=== PATIENT | male | born 1930 | race Caucasian/White ===

== ENCOUNTER 2016-04-03 11:23 | Outpatient (CLI) | payer MEDICARE | END 2016-04-03 11:24 | disposition home or self-care (01) | DX: I10 Essential (primary) hypertension (principal); E11.9 Type 2 diabetes mellitus without complications ==

== ENCOUNTER 2016-05-30 19:37 | Inpatient (IN) | payer MEDICARE ==
[2016-05-30] MEDS ORDERED: FUROSEMIDE 40 MG/4 ML VIAL IVP STA (22:07)
[2016-05-30] MEDS ORDERED: FUROSEMIDE 40 MG/4 ML VIAL ONE (22:12)
[2016-05-30] MEDS ORDERED: FUROSEMIDE 20 MG/2 ML VIAL IVP STA (22:21)
[2016-05-30] MEDS ORDERED: FUROSEMIDE 20 MG/2 ML VIAL IVP ONE (22:22)
[2016-05-30] MEDS ORDERED: PROCHLORPERAZINE 10 MG/2 ML VIAL IVP PRN (23:43)
[2016-05-30] MEDS ORDERED: ACETAMINOPHEN 325 MG TABLET PO PRN (23:43)
[2016-05-30] MEDS ORDERED: SODIUM CHLORIDE FLUSH 0.9% 10 ML SYRINGE IVP PRN (23:43)
[2016-05-30] MEDS ORDERED: POLYETHYLENE GLYCOL 3350 17 GM PACKET PO PRN (23:55)
[2016-05-30] MEDS ORDERED: ZOLPIDEM 5 MG TABLET PO PRN (23:55)
[2016-05-31] MEDS: oxyCODONE 5 MG TABLET PO PRN ×3 (01:57→15:45)
[2016-05-31] MEDS: ATORVASTATIN 10 MG TABLET PO SCH ×2 (01:57→21:21)
[2016-05-31] MEDS: FUROSEMIDE 40 MG/4 ML VIAL IVP SCH ×2 (06:35→11:42)
[2016-05-31] MEDS: SODIUM CHLORIDE FLUSH 0.9% 10 ML SYRINGE IVP SCH ×3 (06:35→21:21)
[2016-05-31] MEDS ORDERED: INSULIN GLARGINE 300 UNIT/3 ML PEN SUBQ SCH (08:00)
[2016-05-31] MEDS: CEFEPIME 2 GM in SODIUM CHLORIDE 0.9% MINIBAG 100 ML IV SCH (09:00)
[2016-05-31] MEDS: INSULIN GLARGINE 300 UNIT/3 ML PEN SUBQ SCH (11:23)
[2016-05-31] MEDS: DOCUSATE SODIUM 100 MG CAPSULE PO SCH ×2 (11:24→21:20)
[2016-05-31] MEDS: SENNA 8.6 MG TABLET PO SCH ×2 (11:32→21:20)
[2016-05-31] MEDS: hydrALAZINE 25 MG TABLET PO SCH ×2 (11:32→21:21)
[2016-05-31] MEDS: PRAZOSIN 1 MG CAPSULE PO SCH ×2 (11:35→21:20)
[2016-05-31] MEDS: FOLIC ACID 1 MG TABLET PO SCH (11:37)
[2016-05-31] MEDS: TAMSULOSIN 0.4 MG CAPSULE PO SCH ×2 (11:38→21:21)
[2016-05-31] MEDS: POLYETHYLENE GLYCOL 3350 17 GM PACKET PO SCH (11:41)
[2016-05-31] MEDS: ENOXAPARIN 40 MG/0.4 ML SYRINGE SUBQ SCH (12:01)
[2016-05-31] MEDS ORDERED: GLUCAGON 1 MG/ML VIAL SUBQ PRN (16:16)
[2016-05-31] MEDS ORDERED: DEXTROSE GEL 37.5 GM TUBE PO PRN (16:16)
[2016-05-31] MEDS ORDERED: DEXTROSE 5% 1,000 ML IV PRN (16:16)
[2016-05-31] MEDS ORDERED: DEXTROSE 50% ABBOJECT 25 GM/50 ML SYRINGE IVP PRN (16:16)
[2016-05-31] MEDS: INSULIN ASPART 300 UNIT/3 ML PEN SUBQ SCH ×2 (17:28→21:42)
[2016-05-31] MEDS ORDERED: TAMSULOSIN 0.4 MG CAPSULE PO SCH (21:00)
[2016-06-01] MEDS: SODIUM CHLORIDE FLUSH 0.9% 10 ML SYRINGE IVP SCH ×2 (05:30→10:30)
[2016-06-01] MEDS: CEFEPIME 2 GM in SODIUM CHLORIDE 0.9% MINIBAG 100 ML IV SCH (08:27)
[2016-06-01] MEDS: DOCUSATE SODIUM 100 MG CAPSULE PO SCH (08:28)
[2016-06-01] MEDS: ENOXAPARIN 40 MG/0.4 ML SYRINGE SUBQ SCH (08:29)
[2016-06-01] MEDS: FUROSEMIDE 40 MG/4 ML VIAL IVP SCH (08:29)
[2016-06-01] MEDS: POLYETHYLENE GLYCOL 3350 17 GM PACKET PO SCH (08:30)
[2016-06-01] MEDS: PRAZOSIN 1 MG CAPSULE PO SCH (08:30)
[2016-06-01] MEDS: SENNA 8.6 MG TABLET PO SCH (08:31)
[2016-06-01] MEDS: TAMSULOSIN 0.4 MG CAPSULE PO SCH (08:31)
[2016-06-01] MEDS: INSULIN GLARGINE 300 UNIT/3 ML PEN SUBQ SCH (08:44)
[2016-06-01] MEDS: INSULIN ASPART 300 UNIT/3 ML PEN SUBQ SCH ×2 (08:44→11:58)
[2016-06-01] MEDS: hydrALAZINE 25 MG TABLET PO SCH (09:00)
[2016-06-01] MEDS: FOLIC ACID 1 MG TABLET PO SCH (09:00)
[2016-06-01] MEDS: oxyCODONE 5 MG TABLET PO PRN ×2 (09:47→15:36)
[2016-06-01] MEDS ORDERED: BISACODYL 10 MG SUPP PR ONE (11:37)
[2016-06-01] MEDS ORDERED: CEFUROXIME AXETIL 250 MG TABLET PO SCH (16:00)
== END 2016-06-01 16:09 | disposition home or self-care (01) | DRG 291 ==
DX: I11.0 Hypertensive heart disease with heart failure (principal); I50.9 Heart failure, unspecified; N28.9 Disorder of kidney and ureter, unspecified; I48.91 Unspecified atrial fibrillation; E11.9 Type 2 diabetes mellitus without complications; F03.90 Unspecified dementia, unspecified severity, without behavioral disturbance, psychotic disturbance, mood disturbance, and anxiety; I13.0 Hypertensive heart and chronic kidney disease with heart failure and stage 1 through stage 4 chronic kidney disease, or unspecified chronic kidney disease; J96.01 Acute respiratory failure with hypoxia; I50.23 Acute on chronic systolic (congestive) heart failure; J18.9 Pneumonia, unspecified organism; E11.22 Type 2 diabetes mellitus with diabetic chronic kidney disease; N18.3 Chronic kidney disease, stage 3 (moderate); R00.1 Bradycardia, unspecified; I71.2 Thoracic aortic aneurysm, without rupture; N40.0 Benign prostatic hyperplasia without lower urinary tract symptoms; M54.5 Low back pain; G89.29 Other chronic pain; K21.9 Gastro-esophageal reflux disease without esophagitis; K59.09 Other constipation; D50.9 Iron deficiency anemia, unspecified; I27.2 Other secondary pulmonary hypertension; Z79.891 Long term (current) use of opiate analgesic; Z79.4 Long term (current) use of insulin

== ENCOUNTER 2016-12-06 08:00 | Outpatient (CLI) | payer MEDICARE ==
[2016-12-06 18:25] LABS: CREATININE 1.7 mg/dL (0.6-1.2); POTASSIUM 3.9 mmol/L (3.5-5.0)
[2016-12-06 18:32] LABS: HEMOGLOBIN A1C 0.69 g/dL
== END 2016-12-06 08:01 | disposition home or self-care (01) ==
LOC: LAB.F 08:00
PROVIDERS: ATTEND Family Medicine
DX: I50.9 Heart failure, unspecified (principal); E11.9 Type 2 diabetes mellitus without complications; I10 Essential (primary) hypertension; N40.1 Benign prostatic hyperplasia with lower urinary tract symptoms
CPT/HCPCS: 36415; 80048; 83036

== ENCOUNTER 2017-01-04 13:05 | Outpatient (CLI) | payer MEDICARE ==
[2017-01-04 18:13] LABS: BASOPHILS % (AUTO) 0.6 %; EOSINOPHILS # (AUTO) 0.8 10^3/uL (0.0-0.7); EOSINOPHILS % (AUTO) 10.1 %; HCT - HEMATOCRIT 35.4 % (42.0-52.0); HGB - HEMOGLOBIN 11.6 g/dL (14.0-18.0); LYMPHOCYTES # (AUTO) 0.6 10^3/uL (1.5-3.5); LYMPHOCYTES % (AUTO) 7.3 %; MEAN CORPUSCULAR HEMOGLOBIN 31.3 pg (27.0-31.0); MEAN CORPUSCULAR HGB CONC 32.7 g/dL (32.0-36.0); MEAN CORPUSCULAR VOLUME 95.6 fL (80.0-94.0); MEAN PLATELET VOLUME 9.2 fL (7.4-11.4); MONOCYTES # (AUTO) 0.6 10^3/uL (0.0-1.0); MONOCYTES % (AUTO) 7.8 %; NEUTROPHILS # (AUTO) 5.6 10^3/uL (1.5-6.6); NEUTROPHILS % (AUTO) 74.2 %; NUCLEATED RED BLOOD CELLS AUTO 0.1 /100WBC; RED CELL DISTRIBUTION WIDTH 16.1 % (12.0-15.0); UNCORRECTED WHITE BLOOD COUNT 7.5 x10^3/uL; WHITE BLOOD COUNT 7.5 x10^3/uL (4.8-10.8)
[2017-01-04 18:37] LABS: ALBUMIN/GLOBULIN RATIO 0.8 (1.0-2.2); BILIRUBIN,TOTAL 0.5 mg/dL (0.2-1.0); CALCIUM 9.2 mg/dL (8.5-10.3); CREATININE 1.7 mg/dL (0.6-1.2); TOTAL PROTEIN 7.7 g/dL (6.7-8.2)
[2017-01-04 18:52] LABS: FERRITIN 116.6 ng/mL (23.9-336.2)
[2017-01-04 19:43] LABS: PLATELET ESTIMATE, MANUAL NORMAL (130-450,000) (NORMAL); PLATELET MORPHOLOGY NORMAL APPEARANCE (NORMAL); WBC MORPHOLOGY (MULTIPLE) NORMAL APPEARANCE (NORMAL)
== END 2017-01-04 13:06 | disposition home or self-care (01) ==
LOC: LAB.F 13:05
PROVIDERS: ATTEND Family Medicine
DX: R09.02 Hypoxemia (principal); N18.9 Chronic kidney disease, unspecified; I50.9 Heart failure, unspecified; E11.9 Type 2 diabetes mellitus without complications; I48.91 Unspecified atrial fibrillation
CPT/HCPCS: 36415; 80053; 82607; 82728; 83540; 83880; 84466; 85025

== ENCOUNTER 2017-02-13 15:54 | Outpatient (CLI) | payer MEDICARE ==
--- NOTE | 2017-02-13 17:16 | XRAY Preliminary Report ---
Exam: XR CHEST 2 VIEW PA/LAT IMPRESSION: 1. There is cardiomegaly. 2. There is peribronchial and patchy opacity within the lung bases. Perhaps mild interval increase as compared to the previous examination. Differential considerations include infectious pneumonia, orga nizing pneumonia, and/or mild lung edema. 3. There is no pneumothorax. [facility] The call report notification system was initiated by Dr. Loida Joyner at 17:00 hrs on 02/13/17. The above findings were discussed with Sindy MCKEON by Dr. Loida Joyner at 17:14 hrs on 04/15/16. SITE ID: [id number]
--- NOTE | 2017-02-13 17:19 | XRAY Report ---
EXAM: CHEST RADIOGRAPHY EXAM DATE: 02/13/2017 04:14 PM. CLINICAL HISTORY: Dyspnea COMPARISON: 05/31/2016. TECHNIQUE: 2 views. FINDINGS: Lungs/Pleura: Lung volumes are within normal limits. There is bilateral lower lobe peribronchial cons olidation. This is not significantly changed as compared to the previous examination. No evidence of pleural effusion. No pneumothorax. Mediastinum: There is cardiomegaly. Other: None. IMPRESSION: 1. There is cardiomegaly. 2. There is peribronchial and patchy opacity within the lung bases. Perhaps mild interval increase as compared to the previous examination. Differential considerations include infectious pneumonia, orga nizing pneumonia, and/or mild lung edema. 3. There is no pneumothorax. [facility] The call report notification system was initiated by Dr. Loida Joyner at 17:00 hrs on 02/13/17. The above findings were discussed with Sindy MCKEON by Dr. Loida Joyner at 17:14 hrs on 04/15/16. Referring Provider Line: [phone] SITE ID: [id number]
== END 2017-02-13 15:55 | disposition home or self-care (01) ==
LOC: DI.S 15:54
PROVIDERS: ATTEND Nurse Practitioner Family
DX: R91.8 Other nonspecific abnormal finding of lung field (principal); I51.7 Cardiomegaly
CPT/HCPCS: 71020

== ENCOUNTER 2017-02-15 09:50 | Outpatient (CLI) | payer MEDICARE ==
--- NOTE | 2017-02-16 17:13 | CONSULTATION NOTE ---
DATE OF CONSULTATION: 02/16/2017 00:00:00 REQUESTING PROVIDER: NAVA Kerns. HISTORY OF PRESENT ILLNESS: The patient is an 86-year-old male, admitted yesterday for guevara tment of a presumed pneumonia. On his admission, however, he also complained of right knee pain and s welling. Speaking with him today, he noted atraumatic origin of right knee swelling and pain for the past week to 10 days. No known history of trauma. No history of gout or other problems to this knee. He has had a history of surgery to his opposite left knee for unknown reasons. Currently, he is only complaining of his right knee with regard to musculoskeletal complaints. No history of fevers or chil ls. PHYSICAL EXAMINATION: Right knee today showed a 1 to 2+ knee effusion present. Mild warmth and no sig nificant erythema around the knee appreciated. No focal tenderness noted about the joint. He has gene ralized tenderness, however. Ligaments appear to be stable. Knee range of motion is somewhat limited from about 15 degrees, flexed to about 45 to 50 degrees of flexion. This was without pain. Neurovascu lar is intact distally. After Betadine skin preparation, we introduced an 18-gauge needle from a lateral parapatellar approac h into the right knee. We were able to aspirate about 30 mL of blood-tinged serous fluid from his kne e. The patient tolerated the aspiration well. X-rays of the knee showed no acute fractures or dislocations noted. ASSESSMENT: Right knee effusion - unclear etiology. PLAN: The patient will apply heat for comfort to his knee. Activities as tolerated with regard to his knee. He will continue on his antibiotics for treatment of his pneumonia as well. We sent the knee a spiration fluid to the laboratory for a stat Gram stain, aerobic and anaerobic cultures and sensitivi ties, crystal analysis, and a cell count. JOB #: [id number] EXT JOB #:[id number]
== END 2017-02-15 09:51 | disposition critical access hospital (66) ==
LOC: EMS 09:50
PROVIDERS: ATTEND Surgery
DX: R53.81 Other malaise (principal)
CPT/HCPCS: A0425; A0429

== ENCOUNTER 2017-02-15 10:24 | Inpatient (IN) | payer MEDICARE ==
--- NOTE | 2017-02-15 11:01 | ED Physician Documentation ---
History of Present Illness - Stated complaint Stated Complaint: WEAKNESS,PNA - Chief complaint Chief Complaint: Resp - History obtained from History obtained from: Patient, Family - History of Present Illness Timing: How many days ago (2 days ago the pt was diagnosed with PNA and is currently on a zpac for community acquired PNA. pt has home o2 that he uses occasionally. Family states that he has had to use the home o2 since the diagnosis and for the past couple days has been growning more weak. No chest pain. Pt also with hx of CHF) Review of Systems Ten Systems: 10 systems reviewed and negative Constitutional: denies: Fever, Chills Eyes: denies: Loss of vision, Photophobia Nose: denies: Congestion, Sinus pressure / pain Throat: denies: Sore throat, Swollen tonsils Cardiac: denies: Chest pain / pressure Respiratory: reports: Dyspnea, Cough, Wheezing GI: denies: Abdominal Pain, Nausea, Vomiting, Constipation, Diarrhea : denies: Dysuria, Frequency Skin: denies: Rash, Lesions, Laceration (s) Musculoskeletal: reports: Other (Left wrist pain and right knee pain) Neurologic: reports: Generalized weakness. denies: Focal weakness, Altered mental status, Headache, LOC PD PAST MEDICAL HISTORY - Past Medical History Past Medical History: Yes Cardiovascular: Congestive heart failure, Hypertension, Atrial fibrillation Respiratory: Pneumonia Neuro: Dementia Endocrine/Autoimmune: Type 2 diabetes GI: GERD, Other : Incontinence HEENT: None Psych: None Musculoskeletal: Osteoarthritis, Chronic back pain Derm: None - Past Surgical History Past Surgical History: Yes Ortho: Knee replacement HEENT: Tonsil/Adenoidectomy - Present Medications Home Medications: Ambulatory Orders Medication Instructions Recorded Confirmed Carvedilol 25 mg PO BID 01/23/13 02/15/17 Ferrous Gluconate 324 mg PO DAILY 01/23/13 02/15/17 Folic Acid 1 mg PO DAILY 01/23/13 02/15/17 Omeprazole [PriLOSEC] 20 mg PO BID 01/23/13 02/15/17 Simvastatin 20 mg PO HS 01/23/13 02/15/17 hydrALAZINE [Apresoline] 50 mg PO BID 01/23/13 02/15/17 oxyCODONE [Roxicodone] 15 mg PO TID PRN 01/23/13 02/15/17 Docusate Sodium 100Mg Capsule 400 mg PO BID 03/20/13 02/15/17 [Colace 100Mg Capsule] Polyethylene Glycol 3350 [Miralax] 8.5 - 17 gm PO DAILY PRN 03/20/13 02/15/17 Prazosin [Minipress] 5 mg PO BID PRN 03/20/13 02/15/17 Senna [Senokot] 17.2 mg PO BID 03/20/13 02/15/17 Insulin Glargine,Hum.rec.anlog 10 units SUBQ QDBREAKFAST 05/30/13 02/15/17 [Lantus] Tamsulosin [Flomax] 0.4 mg PO BID 11/29/14 02/15/17 Furosemide 80 mg PO DAILY 11/30/14 02/15/17 Amitriptyline [Elavil] 1 tab PO DAILY 02/15/17 02/15/17 Azithromycin [Zithromax] 1 gm PO DAILY 02/15/17 02/15/17 - Allergies Allergies/Adverse Reactions: Allergies Allergy/AdvReac Type Severity Reaction Status Date / Time Penicillins Allergy Mild Rash Verified 02/15/17 10:42 - Social History Does the pt smoke?: No Smoking Status: Never smoker Does the pt drink ETOH?: Yes Does the pt have substance abuse?: No - Immunizations Immunizations are current?: Yes - POLST Patient has POLST: Yes POLST Status: Full Code PD ED PE NORMAL - Vitals Vital signs reviewed: Yes - General General: Alert and oriented X 3 - HEENT HEENT: Atraumatic, Moist mucous membranes - Neck Neck: Supple, no meningeal sign - Cardiac Cardiac: No: RRR (Irregular) - Respiratory Respiratory: No respiratory distress (on 2L of NC). No: Clear bilaterally ( Course breath sounds bilateral ) - Abdomen Abdomen: Soft, Non tender, Non distended - Derm Derm: Normal color, Warm and dry, No rash - Extremities Extremities: Other (+ TTP right wirst and right knee with sweling of the wirst and knee and limited ROM ) - Neuro Neuro: Alert and oriented X 3, Normal speech Eye Opening: Spontaneous Motor: Obeys Commands Verbal: Oriented GCS Score: 15 - Psych Psych: Normal mood, Normal affect Results - Vitals Vitals: Vital Signs - 24 hr 02/15/17 02/15/17 02/15/17 10:26 10:30 11:57 Temperature 37 C 37.2 C Heart Rate 72 69 Respiratory 22 20 Rate Blood Pressure 131/70 H 130/64 O2 Saturation 84 L 96 99 Oxygen O2 Source [Without Activity] Nasal cannula O2 Source [With Activity] Nasal cannula O2 Source Room air Oxygen Flow Rate 2 - EKG (time done) 1034 Rate: Rate (enter#) Rhythm: Atrial fibrillation Solomon: Normal QRS: Normal Ischemia: Non specific changes - Labs Labs: Laboratory Tests 02/15/17 02/15/17 02/15/17 11:26 11:26 11:26 WBC 7.9 RBC 3.48 L Hgb 10.8 L Hct 32.7 L MCV 93.9 MCH 31.0 MCHC 33.0 RDW 15.0 Plt Count 109 L MPV 8.1 Neut # 6.2 Lymph # 0.4 L [place] # 0.7 Eos # 0.6 Baso # 0.0 Absolute Nucleated RBC 0.00 Nucleated RBC % 0.0 PT 13.8 H INR 1.2 APTT 21.6 L Sodium 140 Potassium 3.6 Chloride 100 L Carbon Dioxide 27 Anion Gap 13.0 BUN 86 H* Creatinine 1.9 H Estimated GFR (MDRD) 34 L Glucose 105 H Lactic Acid Calcium 9.0 Total Bilirubin 0.4 AST 12 ALT < 10 L Alkaline Phosphatase 55 Total Creatine Kinase 61 B-Natriuretic Peptide Total Protein 7.2 Albumin 3.0 L Globulin 4.2 Albumin/Globulin Ratio 0.7 L Lipase 16 L 02/15/17 02/15/17 11:26 11:26 WBC RBC Hgb Hct MCV MCH MCHC RDW Plt Count MPV Neut # Lymph # [place] # Eos # Baso # Absolute Nucleated RBC Nucleated RBC % PT INR APTT Sodium Potassium Chloride Carbon Dioxide Anion Gap BUN Creatinine Estimated GFR (MDRD) Glucose Lactic Acid 0.7 Calcium Total Bilirubin AST ALT Alkaline Phosphatase Total Creatine Kinase B-Natriuretic Peptide 346 H Total Protein Albumin Globulin Albumin/Globulin Ratio Lipase - Rads (name of study) CXR Radiology: Final report received, EMP read contemporaneously (Possible mild CHF bibasilar pulm opacities similar to prior ) left wrist Radiology: Prelim report reviewed, EMP read contemporaneously PD MEDICAL DECISION MAKING - ED course Complexity details: d/w patient, d/w family, d/w events solutions consultant ED course: Pt with a known diagnosis of PNA and is on oral zpac at home. has had 2 doses. no risks of HCAP. has been at home and for the past 2 days has become more weak. Is on 2L of O2 that he has at home but only uses occasionally. Right wrist pain that is new w/o signs of fracture. family states that he was laying on that wrist wrong the other night. Hs right knee pain and swelling is not new but is making that leg more weak. BNP only slightly elevated. has known A- fib and is not anticoagulation because of his fall risk. Discussed with family and will admit for his PNA and weakness. Departure - Departure Disposition: [facility] DC/Xfer Clinical Impression: Pneumonia Qualifiers: Pneumonia type: due to unspecified organism Laterality: unspecified laterality Lung location: unspecified part of lung Qualified Code(s): J18.9 - Pneumonia, unspecified organism Atrial fibrillation Qualifiers: Atrial fibrillation type: persistent Qualified Code(s): I48.1 - Persistent atrial fibrillation CHF (congestive heart failure) Qualifiers: Congestive heart failure type: unspecified congestive heart failure type Congestive heart failure chronicity: chronic Qualified Code(s): I50.9 - Heart failure, unspecified Condition: Stable
[2017-02-15 11:39] LABS: BASOPHILS % (AUTO) 0.3 %; EOSINOPHILS # (AUTO) 0.6 10^3/uL (0.0-0.7); EOSINOPHILS % (AUTO) 7.1 %; HCT - HEMATOCRIT 32.7 % (42.0-52.0); HGB - HEMOGLOBIN 10.8 g/dL (14.0-18.0); LYMPHOCYTES # (AUTO) 0.4 10^3/uL (1.5-3.5); LYMPHOCYTES % (AUTO) 4.6 %; MEAN CORPUSCULAR VOLUME 93.9 fL (80.0-94.0); MEAN PLATELET VOLUME 8.1 fL (7.4-11.4); MONOCYTES # (AUTO) 0.7 10^3/uL (0.0-1.0); NEUTROPHILS # (AUTO) 6.2 10^3/uL (1.5-6.6); RED BLOOD COUNT 3.48 10^6/uL (4.70-6.10); UNCORRECTED WHITE BLOOD COUNT 7.9 x10^3/uL; WHITE BLOOD COUNT 7.9 x10^3/uL (4.8-10.8)
[2017-02-15 11:50] LABS: INR 1.2 (0.8-1.2); PT - PROTHROMBIN TIME 13.8 secs (9.9-12.6)
[2017-02-15 12:02] LABS: PARTIAL THROMBOPLASTIN TIME 21.6 secs (24.9-33.3)
[2017-02-15 12:09] LABS: ALBUMIN/GLOBULIN RATIO 0.7 (1.0-2.2); BILIRUBIN,TOTAL 0.4 mg/dL (0.2-1.0); CARBON DIOXIDE - CO2 27 mmol/L (21-32); CHLORIDE 100 mmol/L (101-111); CREATININE 1.9 mg/dL (0.6-1.2); GFR - MDRD 34 (>89); GLUCOSE 105 mg/dL (70-100); LIPASE 16 U/L (22-51); POTASSIUM 3.6 mmol/L (3.5-5.0); SODIUM 140 mmol/L (135-145); TOTAL PROTEIN 7.2 g/dL (6.7-8.2)
[2017-02-15 12:16] LABS: BUN - BLOOD UREA NITROGEN 86 mg/dL (6-20)
--- NOTE | 2017-02-15 12:35 | XRAY Preliminary Report ---
Exam: XR CHEST 1 VIEW IMPRESSION: Possible mild CHF. Bibasilar pulmonary opacities are similar to prior. [facility] SITE ID: [id number]
--- NOTE | 2017-02-15 12:37 | XRAY Preliminary Report ---
Exam: XR WRIST 3 VIEW LT IMPRESSION: No acute osseous abnormality. [facility] SITE ID: [id number]
--- NOTE | 2017-02-15 12:38 | XRAY Report ---
EXAM: CHEST RADIOGRAPHY EXAM DATE: 02/15/2017 12:18 PM. CLINICAL HISTORY: Shortness of breath . COMPARISON: 02/13/2017. TECHNIQUE: 1 view. FINDINGS: Lungs/Pleura: Bibasilar patchy and reticular opacities are similar to prior allowing for differences in technique. No new pulmonary opacity. No pneumothorax or large pleural effusion. Possible mild pulm onary vascular congestion. Mediastinum: Moderate enlargement of the cardiac silhouette is similar to prior. Other: None. IMPRESSION: Possible mild CHF. Bibasilar pulmonary opacities are similar to prior. [facility] Referring Provider Line: [phone] SITE ID: [id number]
--- NOTE | 2017-02-15 12:39 | XRAY Report ---
EXAM: LEFT WRIST RADIOGRAPHY EXAM DATE: 02/15/2017 12:19 PM. CLINICAL HISTORY: Swelling and pain . COMPARISON: None. TECHNIQUE: 3 views. FINDINGS: Bones: No acute fracture. Joints: Mild degenerative change. No dislocation. Soft Tissues: Vascular calcifications. Mild diffuse soft tissue swelling. IMPRESSION: No acute osseous abnormality. [facility] Referring Provider Line: [phone] SITE ID: [id number]
[2017-02-15] MEDS ORDERED: ONDANSETRON 4 MG/2 ML VIAL IVP PRN (13:30)
[2017-02-15] MEDS ORDERED: PRAZOSIN 1 MG CAPSULE PO PRN (14:31)
[2017-02-15] MEDS ORDERED: MORPHINE ER 15 MG TABLET PO PRN (14:31)
[2017-02-15] MEDS: CEFEPIME 1 GM in SODIUM CHLORIDE 0.9% MINIBAG 100 ML IV SCH ×2 (14:45→21:42)
[2017-02-15] MEDS: oxyCODONE 5 MG TABLET PO PRN (15:09)
[2017-02-15] MEDS: ACETAMINOPHEN 325 MG TABLET PO PRN (15:13)
[2017-02-15 15:38] LABS: BILIRUBIN,URINE NEGATIVE (NEGATIVE)
--- NOTE | 2017-02-15 15:55 | HISTORY & PHYSICAL EXAMINATION ---
Chief Complaint - Chief Complaint Chief Complaint: weakness and cough History of Present Illness - Admitted From Admitted From:: ER - History Obtained From History obtained from: pt and his family - History of Present Illness HPI Comment/Other: This is a 86-year-old male with a past medical history significance for CHF, CKD, HTN, Afib without anticoagulation, pneumonia, Dementia, DM2, GERD , incontinence, osteoarthritis, chronic pain, who present ER for evaluation of weakness, cough, pneumonia. Pt's son report pt had a choke with extensive cough and aspiration before he visited his PCP. Pt report three days he went to see his PCP, CXR was done at PCP office. He was found to have pneumonia. Pt was prescribed Azithyomycin. But pt did not feel better. The saturation of O2 was down to 80% per pt's daughter in law state. Pt has O2 taken in the home. Pt report he has lots of cough with yellow sputum. Pt also developed more weakness. he usually can walk with walker but recently he can not sit at the bed side, and sleep the whole day. pt denies fever, chill, night sweating. No chest pain, obvious shortness of breathing, headache, abdominal pain, nausea, vomiting, diarrhea, GI bleeding, dysuria, hemauria, vision changing. lab reveals chronic CKD, lactic acid 0.7, BNP 346. CXR reveals no acute significant finding. History - Past Medical History Cardiovascular: reports: Congestive heart failure, Hypertension, Atrial fibrillation Respiratory: reports: Pneumonia Neuro: reports: Dementia Endocrine/Autoimmune: reports: Type 2 diabetes GI: reports: GERD, Other : reports: Incontinence HEENT: reports: None Psych: reports: None Musculoskeletal: reports: Osteoarthritis, Chronic back pain Derm: reports: None MRSA Hx?: No - Past Surgical History Ortho: reports: Knee replacement HEENT: reports: Tonsil/Adenoidectomy - POLST Patient has POLST: Yes POLST Status: Full Code Meds/Allgy - Home Medications Home Medications: Ambulatory Orders Medication Instructions Recorded Confirmed Carvedilol 25 mg PO BID 01/23/13 02/15/17 Ferrous Gluconate 324 mg PO DAILY 01/23/13 02/15/17 Folic Acid 1 mg PO DAILY 01/23/13 02/15/17 Omeprazole [PriLOSEC] 20 mg PO BID 01/23/13 02/15/17 Simvastatin 20 mg PO HS 01/23/13 02/15/17 hydrALAZINE [Apresoline] 50 mg PO BID 01/23/13 02/15/17 oxyCODONE [Roxicodone] 15 mg PO TID PRN 01/23/13 02/15/17 Docusate Sodium 100Mg Capsule 100 mg PO BID 03/20/13 02/15/17 [Colace 100Mg Capsule] Polyethylene Glycol 3350 [Miralax] 8.5 - 17 gm PO DAILY PRN 03/20/13 02/15/17 Prazosin [Minipress] 5 mg PO BID 03/20/13 02/15/17 Senna [Senokot] 17.2 mg PO BID 03/20/13 02/15/17 Insulin Glargine,Hum.rec.anlog 10 units SUBQ QDBREAKFAST 05/30/13 02/15/17 [Lantus] Tamsulosin [Flomax] 0.4 mg PO BID 11/29/14 02/15/17 Furosemide 80 mg PO DAILY 11/30/14 02/15/17 Amitriptyline [Elavil] 10 mg PO 2100 02/15/17 02/15/17 Azithromycin [Zithromax Tri-Jan] 500 mg PO DAILY 02/15/17 02/15/17 Morphine Sulfate [Ms Contin] 15 mg PO BID 02/15/17 02/15/17 Zolpidem [Ambien] 5 mg PO HS PRN 02/15/17 02/15/17 - Allergies Allergies/Adverse Reactions: Allergies Allergy/AdvReac Type Severity Reaction Status Date / Time Penicillins Allergy Mild Rash Verified 02/15/17 10:42 Review of Systems - Constitutional Constitutional: reports: Fatigue, Weakness. denies: Fever, Chills, Malaise, Poor appetite, Diaphoresis, Night sweats - Eyes Eyes: denies: Pain, Irritation, Amaurosis, Blurred vision, Spots in vision, Field loss, Vision loss, Dipolpia - Ears, Nose & Throat Ears, Nose & Throat: denies: Ear pain, Hearing loss, Hearing aids, Tinnitus, Vertigo, Nasal pain, Nasal discharge, Nosebleeds, Nasal congestion, Postnasal drainage, Sore throat, Mouth lesions, Bleeding gums - Cardiovascular Cariovascular: denies: Irregular heart rate, Palpitations, Chest pain, Edema, Lightheadedness, Syncope, Exertional dyspnea, Decr. exercise tolerance - Respiratory Respiratory: reports: Cough, Sputum production. denies: Wheezing, Snoring, Hemoptysis, Orthopnea, SOB at rest - Gastrointestinal Gastrointestinal: denies: Abdominal pain, Abdominal distention, Constipation, Diarrhea, Change in bowel habits, Rectal bleeding, Black stools, Bloody stools, Nausea, Vomiting, Tee blood emesis, Coffee grounds emesis, Reflux/heartburn - Genitourinary Genitourinary: reports: Incontinence. denies: Dysuria, Frequency, Urgency, Hematuria, Flank pain, Nocturia, Urethral discharge - Musculoskeletal Musculoskeletal: reports: Back pain, Joint pain. denies: Muscle pain, Muscle aches, Stiffness, Limited range of motion, Muscle weakness, Gout - Integumentary Integumentary: denies: Rash, Pruritis, Lesions, Dryness, Lumps, Acne, Pigment changes - Neurological Neurological: reports: General weakness. denies: Focal weakness, Headache, Dizziness, Numbness, Memory problems, Pre-existing deficit, Abnormal gait, Seizures, Incoordination, Slurred speech - Psychiatric Psychiatric: denies: Depression, Anxiety, Suicidal, Delusions, Hallucinations, Homicidal - Endocrine Endocrine: denies: Polyuria, Polydypsia, Polyphagia, Intolerance to cold, Intolerance to heat - Hematologic/Lymphatic Hematologic/Lymphatic: denies: Anemia, Bruising, Petechiae, Blood clots, Lymphadenopathy, Bleeding tendencies, Recurrent infections Exam - Vital Signs Reviewed Vital Signs: Yes Vital Signs: Vital Signs x48h Temp Pulse Pulse Resp BP BP Pulse Ox 02/15/17 15:39 36.6 C 68 22 146/94 H 96 02/15/17 14:33 36.8 C 78 20 144/58 H 92 02/15/17 14:11 37.1 C 74 22 145/66 H 98 - Physical Exam General Appearance: positive: No acute distress, Alert. negative: Lethargic Eyes Bilateral: positive: Normal inspection, PERRL, No lid inflammation, Conjunctivae nml ENT: positive: ENT inspection nml, Pharynx nml, No signs of dehydration. negative: Purulent nasal drainage, Pharyngeal erythema, Oral lesions Neck: positive: Nml inspection, Thyroid nml, No JVD, Trachea midline. negative : Thyromegaly, Lymphadenopathy (R), Lymphadenopathy (L), Stiff neck, Carotid bruit, Swelling/bruising, Tracheal deviation Respiratory: positive: Chest non-tender, No respiratory distress, Rhonchi. negative: Wheezes, Rales Cardiovascular: positive: Regular rate & rhythm, No murmur, No gallop. negative : Irregularly irregular, Extrasystoles, Tachycardia, Bradycardia, Systolic murmur, Diastolic murmur Peripheral Pulses: positive: 2+ Abdomen: positive: Non-tender, No organomegaly, Nml bowel sounds, No distention. negative: Tenderness, Guarding, Rebound Back: positive: Nml inspection. negative: CVA tenderness (R), CVA tenderness (L ) Skin: positive: Color nml, No rash, Warm, Dry. negative: Cyanosis, Diaphoresis , Pallor Extremities: positive: Non-tender, Full ROM, Nml appearance. negative: Calf tenderness, Joint swelling, Balwinder's sign/cords Neurologic/Psychiatric: positive: Oriented x3, Sensation nml, Mood/affect nml, Weakness. negative: Sensory loss, Facial droop, Slurred/abnml speech, Depressed mood/affect Conclusion/Plan - Problem List (1) Aspiration pneumonia Conclusion/Plan: pt's son report he had a choke and extensive cough and aspiration. Then he was diagnosis of pneumonia but no better after treated with PO antibiotics Cefepim blood and sputum culture, will follow up (2) Atrial fibrillation Conclusion/Plan: pt's daughter in law report pt has been Afib without anticoagulation due to risk of fall than the benefit. pt's HR is good control continue home meds for HR control tele, vital monitor Qualifiers: Atrial fibrillation type: persistent Qualified Code(s): I48.1 - Persistent atrial fibrillation (3) Congestive heart failure Conclusion/Plan: stable, BNP at pt's baseline, CXR does reveal effusion continue Lasix as home meds daily Lab, vital monitor Qualifiers: Congestive heart failure type: unspecified congestive heart failure type Congestive heart failure chronicity: chronic Qualified Code(s): I50.9 - Heart failure, unspecified (4) DM2 (diabetes mellitus, type 2) Conclusion/Plan: Glucose is well controlled today, resume of home Lantus Slide scale, ACHS, hypoglycemia check A1C (5) HTN (hypertension) Conclusion/Plan: stable, resume of home BP meds vital, tele monitor (6) Renal insufficiency Conclusion/Plan: stable, chronic condition hydration and avoid nephrotoxic agent daily lab, vital monitor (7) Osteoarthritis Conclusion/Plan: chronic condition, pain control, resume home meds (8) Chronic pain Conclusion/Plan: pain control, resume home pain control regime. (9) DVT prophylaxis Conclusion/Plan: SCD and Heparin (10) Full code status Conclusion/Plan: pt request full code status - Lab Results Fish Bones: 02/16/17 04:57 02/16/17 04:57 Issues/Core Measures - Anticipated LOS Anticipated Stay Length: 2 or more midnights (two or more midnights expected)
[2017-02-15 16:00] LABS: HEMOGLOBIN A1C 0.63 g/dL
[2017-02-15 16:03] LABS: UA CHARGE (STRIP ONLY) YES; UR CULTURE IF IND NOT INDICATED
[2017-02-15] MEDS: SODIUM CHLORIDE FLUSH 0.9% 10 ML SYRINGE IVP SCH ×2 (17:56→21:42)
[2017-02-15] MEDS: INSULIN ASPART 300 UNIT/3 ML PEN SUBQ SCH ×2 (17:57→21:39)
[2017-02-15] MEDS: HEPARIN 5,000 UNIT/ML VIAL SUBQ SCH (21:37)
[2017-02-15] MEDS: DOCUSATE SODIUM 100 MG CAPSULE PO SCH (21:39)
[2017-02-15] MEDS: MORPHINE ER 15 MG TABLET PO SCH (21:39)
[2017-02-15] MEDS: SENNA 8.6 MG TABLET PO SCH (21:40)
[2017-02-15] MEDS: PANTOPRAZOLE 40 MG TABLET PO SCH (21:40)
[2017-02-15] MEDS: ATORVASTATIN 10 MG TABLET PO SCH (21:41)
[2017-02-15] MEDS: CARVEDILOL 12.5 MG TABLET PO SCH (21:41)
[2017-02-15] MEDS: hydrALAZINE 25 MG TABLET PO SCH (21:41)
[2017-02-15] MEDS: AMITRIPTYLINE 10 MG TABLET PO SCH (21:41)
[2017-02-15] MEDS: TAMSULOSIN 0.4 MG CAPSULE PO SCH (21:44)
[2017-02-16 05:07] LABS: BASOPHILS % (AUTO) 0.4 %; EOSINOPHILS # (AUTO) 0.3 10^3/uL (0.0-0.7); EOSINOPHILS % (AUTO) 5.8 %; HCT - HEMATOCRIT 30.3 % (42.0-52.0); HGB - HEMOGLOBIN 9.7 g/dL (14.0-18.0); LYMPHOCYTES # (AUTO) 0.4 10^3/uL (1.5-3.5); LYMPHOCYTES % (AUTO) 7.3 %; MEAN CORPUSCULAR HEMOGLOBIN 30.4 pg (27.0-31.0); MEAN CORPUSCULAR VOLUME 95.2 fL (80.0-94.0); MONOCYTES # (AUTO) 0.6 10^3/uL (0.0-1.0); MONOCYTES % (AUTO) 11.1 %; NEUTROPHILS # (AUTO) 4.1 10^3/uL (1.5-6.6); NEUTROPHILS % (AUTO) 75.4 %; RED BLOOD COUNT 3.18 10^6/uL (4.70-6.10); RED CELL DISTRIBUTION WIDTH 14.9 % (12.0-15.0); UNCORRECTED WHITE BLOOD COUNT 5.4 x10^3/uL; WHITE BLOOD COUNT 5.4 x10^3/uL (4.8-10.8)
[2017-02-16 05:22] LABS: ALBUMIN/GLOBULIN RATIO 0.7 (1.0-2.2); BILIRUBIN,TOTAL 0.5 mg/dL (0.2-1.0); CALCIUM 8.5 mg/dL (8.5-10.3); CARBON DIOXIDE - CO2 29 mmol/L (21-32); CHLORIDE 104 mmol/L (101-111); CREATININE 1.8 mg/dL (0.6-1.2); GFR - MDRD 36 (>89); GLUCOSE 144 mg/dL (70-100); MAGNESIUM 2.2 mg/dL (1.7-2.8); POTASSIUM 3.9 mmol/L (3.5-5.0); SODIUM 139 mmol/L (135-145); TOTAL PROTEIN 6.1 g/dL (6.7-8.2)
[2017-02-16 05:24] LABS: BUN - BLOOD UREA NITROGEN 81 mg/dL (6-20)
[2017-02-16] MEDS: CEFEPIME 1 GM in SODIUM CHLORIDE 0.9% MINIBAG 100 ML IV SCH ×3 (06:28→22:07)
[2017-02-16] MEDS: SODIUM CHLORIDE FLUSH 0.9% 10 ML SYRINGE IVP PRN (06:28)
[2017-02-16] MEDS: SODIUM CHLORIDE FLUSH 0.9% 10 ML SYRINGE IVP SCH ×3 (06:28→22:08)
[2017-02-16] MEDS: oxyCODONE 5 MG TABLET PO PRN ×2 (06:40→16:19)
[2017-02-16] MEDS: POLYETHYLENE GLYCOL 3350 17 GM PACKET PO SCH (08:16)
[2017-02-16] MEDS: SENNA 8.6 MG TABLET PO SCH ×2 (08:17→20:54)
[2017-02-16] MEDS: FERROUS GLUCONATE 324 MG TABLET PO SCH (08:18)
[2017-02-16] MEDS: DOCUSATE SODIUM 100 MG CAPSULE PO SCH ×2 (08:18→20:55)
[2017-02-16] MEDS: MORPHINE ER 15 MG TABLET PO SCH ×2 (08:18→20:55)
[2017-02-16] MEDS: CARVEDILOL 12.5 MG TABLET PO SCH ×2 (08:19→21:08)
[2017-02-16] MEDS: FUROSEMIDE 40 MG TABLET PO SCH (08:20)
[2017-02-16] MEDS: FOLIC ACID 1 MG TABLET PO SCH (08:21)
[2017-02-16] MEDS: PANTOPRAZOLE 40 MG TABLET PO SCH ×2 (08:21→20:54)
[2017-02-16] MEDS: TAMSULOSIN 0.4 MG CAPSULE PO SCH ×2 (08:21→21:14)
[2017-02-16] MEDS: HEPARIN 5,000 UNIT/ML VIAL SUBQ SCH ×2 (08:23→21:13)
[2017-02-16] MEDS: hydrALAZINE 25 MG TABLET PO SCH ×2 (08:23→20:55)
[2017-02-16] MEDS: INSULIN GLARGINE 300 UNIT/3 ML PEN SUBQ SCH (08:24)
[2017-02-16] MEDS: INSULIN ASPART 300 UNIT/3 ML PEN SUBQ SCH ×4 (08:29→21:13)
[2017-02-16] MEDS ORDERED: FAMOTIDINE 20 MG TABLET PO SCH (09:00)
--- NOTE | 2017-02-16 12:27 | XRAY Preliminary Report ---
Exam: XR KNEE 2 VIEW RT IMPRESSION: 1. Moderate right knee degenerative changes. 2. Moderate joint effusion. 3. No fracture. [facility] SITE ID: [id number]
--- NOTE | 2017-02-16 12:29 | XRAY Report ---
EXAM: RIGHT KNEE RADIOGRAPHY EXAM DATE: 02/16/2017 11:55 AM. CLINICAL HISTORY: Pain. COMPARISON: None. TECHNIQUE: 2 views. FINDINGS: Bones: Normal. No fractures or bone lesions. Joints: Moderate right knee joint effusion. Mild/moderate narrowing of medial and lateral compartment heights. Spurring of tibial spines. Tricompartmental spurring. Soft Tissues: Extensive atherosclerotic arterial calcifications. IMPRESSION: 1. Moderate right knee degenerative changes. 2. Moderate joint effusion. 3. No fracture. [facility] Referring Provider Line: [phone] SITE ID: [id number]
--- NOTE | 2017-02-16 14:09 | PROVIDER PROGRESS NOTE ---
Subjective - Prog Note Date Prog Note Date: 02/16/17 - Subjective Pt reports feeling: Improved Subjective: pt state he feel he has better breathing. no chest pain, headache. report right knee pain, still weak. Current Medications - Current Medications Current Medications: Active Medications Acetaminophen (Tylenol) 650 mg PO Q4HR PRN PRN Reason: Pain 1 to 4 Last Admin: 02/15/17 15:13 Dose: 650 mg Amitriptyline HCl (Elavil) 10 mg PO QPM [facility] Last Admin: 02/15/17 21:41 Dose: 10 mg Atorvastatin Calcium (Lipitor) 10 mg PO QPM [facility] Last Admin: 02/15/17 21:41 Dose: 10 mg Carvedilol (Coreg) 25 mg PO BID [facility] Last Admin: 02/16/17 08:19 Dose: 25 mg Docusate Sodium (Colace 100mg Capsule) 100 mg PO BID [facility] Last Admin: 02/16/17 08:18 Dose: 100 mg Ferrous Gluconate (Fergon) 324 mg PO DAILY [facility] Last Admin: 02/16/17 08:18 Dose: 324 mg Folic Acid () 1 mg PO DAILY [facility] Last Admin: 02/16/17 08:21 Dose: 1 mg Furosemide (Lasix) 80 mg PO DAILY [facility] Last Admin: 02/16/17 08:20 Dose: 80 mg Heparin Sodium (Porcine) () 5,000 unit SUBQ BID [facility] Last Admin: 02/16/17 08:23 Dose: 5,000 unit Hydralazine HCl (Apresoline) 50 mg PO BID [facility] Last Admin: 02/16/17 08:23 Dose: 50 mg Cefepime HCl 1 gm/ Sodium (Chloride) 100 mls @ 200 mls/hr IV TID [facility] Last Admin: 02/16/17 13:52 Dose: 200 mls/hr Insulin Aspart (Novolog) 1 - 9 unit SUBQ 0800,1200,1700,2100 [facility] PRN Reason: Protocol Last Admin: 02/16/17 11:48 Dose: 7 unit Insulin Glargine (Lantus Solostar) 10 unit SUBQ QDBREAKFAST [facility] Last Admin: 02/16/17 08:24 Dose: 10 unit Morphine Sulfate () 15 mg PO BID [facility] Last Admin: 02/16/17 08:18 Dose: 15 mg Ondansetron HCl (Zofran Inj) 4 mg IVP Q6HR PRN PRN Reason: Nausea / Vomiting Oxycodone HCl (Roxicodone) 15 mg PO TID PRN PRN Reason: pain Last Admin: 02/16/17 06:40 Dose: 15 mg Pantoprazole Sodium (Protonix) 40 mg PO BID [facility] Last Admin: 02/16/17 08:21 Dose: 40 mg Polyethylene Glycol (Miralax) 17 gm PO DAILY [facility] Last Admin: 02/16/17 08:16 Dose: 17 gm Prazosin HCl (Minipress) 5 mg PO BID PRN PRN Reason: Constipation Senna (Senokot) 17.2 mg PO BID [facility] Last Admin: 02/16/17 08:17 Dose: 17.2 mg Sodium Chloride (Normal Saline Flush 0.9%) 10 ml IVP PRN PRN PRN Reason: NEEDED PER PROVIDER ORDERS Last Admin: 02/16/17 06:28 Dose: 10 ml Sodium Chloride (Normal Saline Flush 0.9%) 10 ml IVP Q8HR [facility] Last Admin: 02/16/17 08:28 Dose: 10 ml Tamsulosin HCl (Flomax) 0.4 mg PO BID [facility] Last Admin: 02/16/17 08:21 Dose: 0.4 mg Carvedilol 25 mg PO BID 01/23/13 Ferrous Gluconate 324 mg PO DAILY 01/23/13 Folic Acid 1 mg PO DAILY 01/23/13 Omeprazole [PriLOSEC] 20 mg PO BID 01/23/13 Simvastatin 20 mg PO HS 01/23/13 hydrALAZINE [Apresoline] 50 mg PO BID 01/23/13 oxyCODONE [Roxicodone] 15 mg PO TID PRN 01/23/13 Docusate Sodium 100Mg Capsule [Colace 100Mg Capsule] 100 mg PO BID 03/20/13 Polyethylene Glycol 3350 [Miralax] 8.5 - 17 gm PO DAILY PRN 03/20/13 Prazosin [Minipress] 5 mg PO BID 03/20/13 Senna [Senokot] 17.2 mg PO BID 03/20/13 Insulin Glargine,Hum.rec.anlog [Lantus] 10 units SUBQ QDBREAKFAST 05/30/13 Tamsulosin [Flomax] 0.4 mg PO BID 11/29/14 Furosemide 80 mg PO DAILY 11/30/14 Amitriptyline [Elavil] 10 mg PO 2100 02/15/17 Azithromycin [Zithromax Tri-Jan] 500 mg PO DAILY 02/15/17 Morphine Sulfate [Ms Contin] 15 mg PO BID 02/15/17 Zolpidem [Ambien] 5 mg PO HS PRN 02/15/17 Objective - Vital Signs/Intake & Output Reviewed Vital Signs: Yes Vital Signs: Vital Signs x48h Temp Pulse Resp BP Pulse Ox 02/16/17 11:24 57 L 20 113/47 L 95 02/16/17 07:46 36.7 C 62 20 113/56 L 96 02/16/17 06:51 36.6 C 63 22 123/57 L 95 Intake & Output: Intake & Output 02/13/17 02/14/17 02/15/17 02/16/17 23:59 23:59 23:59 23:59 Intake Total 500 1340 Balance 500 1340 - Objective General Appearance: positive: No acute distress, Alert. negative: Lethargic Eyes Bilateral: positive: Normal inspection, PERRL, No lid inflammation, Conjunctivae nml ENT: positive: ENT inspection nml, Pharynx nml, No signs of dehydration. negative: Purulent nasal drainage, Pharyngeal erythema, Oral lesions Neck: positive: Nml inspection, Thyroid nml, Trachea midline. negative: Thyromegaly, Lymphadenopathy (R), Lymphadenopathy (L), Stiff neck, Carotid bruit , Swelling/bruising, Tracheal deviation Respiratory: positive: Chest non-tender, No respiratory distress, Rhonchi. negative: Wheezes, Rales Cardiovascular: positive: Regular rate & rhythm, No murmur, No gallop. negative : Irregularly irregular, Extrasystoles, Tachycardia, Bradycardia, Systolic murmur, Diastolic murmur Peripheral Pulses: 2+ Radial (R), 2+ Radial (L), 2+ Dorsalis pedis (R), 2+ Dorsalis pedis (L) Abdomen: positive: Non-tender, Nml bowel sounds, No distention. negative: Tenderness, Guarding, Rebound Back: positive: Nml inspection. negative: CVA tenderness (R), CVA tenderness (L ) Skin: positive: Color nml, No rash, Warm, Dry. negative: Cyanosis, Diaphoresis , Pallor, Skin rash Extremities: positive: Non-tender, Full ROM (except right knee, pt state he feel pain). negative: Pedal edema, Calf tenderness, Joint swelling, Balwinder's sign/cords Neurologic/Psychiatric: positive: Oriented x3, Sensation nml, Mood/affect nml. negative: Sensory loss, Facial droop, Slurred/abnml speech, Depressed mood/ affect - Lab Results Fish Bones: 02/16/17 04:57 02/16/17 04:57 Other Labs: Lab Results x24hrs 02/16/17 02/16/17 02/16/17 Range/Units 11:22 07:44 04:57 WBC (4.8-10.8) x10^3/uL RBC (4.70-6.10) 10^6/uL Hgb (14.0-18.0) g/dL Hct (42.0-52.0) % MCV (80.0-94.0) fL MCH (27.0-31.0) pg MCHC (32.0-36.0) g/dL RDW (12.0-15.0) % Plt Count (130-450) 10^3/uL MPV (7.4-11.4) fL Neut # (1.5-6.6) 10^3/uL Lymph # (1.5-3.5) 10^3/uL Laurens # (0.0-1.0) 10^3/uL Eos # (0.0-0.7) 10^3/uL Baso # (0.0-0.1) 10^3/uL Absolute Nucleated RBC x10^3/uL Nucleated RBC % /100WBC Sodium 139 (135-145) mmol/L Potassium 3.9 (3.5-5.0) mmol/L Chloride 104 (101-111) mmol/L Carbon Dioxide 29 (21-32) mmol/L Anion Gap 6.0 (6-13) BUN 81 H* (6-20) mg/dL Creatinine 1.8 H (0.6-1.2) mg/dL Estimated GFR (MDRD) 36 L (>89) Glucose 144 H (70-100) mg/dL POC Whole Bld Glucose 322 H 132 H (70 - 100) mg/dL Glycated Hemoglobin (4.6-6.2) % Estim Average Glucose (70-100) Calcium 8.5 (8.5-10.3) mg/dL Magnesium 2.2 (1.7-2.8) mg/dL Total Bilirubin 0.5 (0.2-1.0) mg/dL AST 11 (10-42) IU/L ALT < 10 L (10-60) IU/L Alkaline Phosphatase 50 (42-121) IU/L Total Protein 6.1 L (6.7-8.2) g/dL Albumin 2.5 L (3.2-5.5) g/dL Globulin 3.6 (2.1-4.2) g/dL Albumin/Globulin Ratio 0.7 L (1.0-2.2) Urine Color Urine Clarity (CLEAR) Urine pH (5.0-7.5) PH Ur Specific Willow (1.002-1.030) Urine Protein (NEGATIVE) mg/dL Urine Glucose (UA) (NEGATIVE) mg/dL Urine Ketones (NEGATIVE) mg/dL Urine Occult Blood (NEGATIVE) Urine Nitrite (NEGATIVE) Urine Bilirubin (NEGATIVE) Urine Urobilinogen (NORMAL) E.U./dL Ur Leukocyte Esterase (NEGATIVE) Ur Microscopic Review Urine Culture Comments 02/16/17 02/15/17 02/15/17 Range/Units 04:57 20:43 16:30 WBC 5.4 (4.8-10.8) x10^3/uL RBC 3.18 L (4.70-6.10) 10^6/uL Hgb 9.7 L (14.0-18.0) g/dL Hct 30.3 L (42.0-52.0) % MCV 95.2 H (80.0-94.0) fL MCH 30.4 (27.0-31.0) pg MCHC 32.0 (32.0-36.0) g/dL RDW 14.9 (12.0-15.0) % Plt Count 98 L (130-450) 10^3/uL MPV 8.0 (7.4-11.4) fL Neut # 4.1 (1.5-6.6) 10^3/uL Lymph # 0.4 L (1.5-3.5) 10^3/uL Laurens # 0.6 (0.0-1.0) 10^3/uL Eos # 0.3 (0.0-0.7) 10^3/uL Baso # 0.0 (0.0-0.1) 10^3/uL Absolute Nucleated RBC 0.00 x10^3/uL Nucleated RBC % 0.0 /100WBC Sodium (135-145) mmol/L Potassium (3.5-5.0) mmol/L Chloride (101-111) mmol/L Carbon Dioxide (21-32) mmol/L Anion Gap (6-13) BUN (6-20) mg/dL Creatinine (0.6-1.2) mg/dL Estimated GFR (MDRD) (>89) Glucose (70-100) mg/dL POC Whole Bld Glucose 217 H 208 H (70 - 100) mg/dL Glycated Hemoglobin (4.6-6.2) % Estim Average Glucose (70-100) Calcium (8.5-10.3) mg/dL Magnesium (1.7-2.8) mg/dL Total Bilirubin (0.2-1.0) mg/dL AST (10-42) IU/L ALT (10-60) IU/L Alkaline Phosphatase (42-121) IU/L Total Protein (6.7-8.2) g/dL Albumin (3.2-5.5) g/dL Globulin (2.1-4.2) g/dL Albumin/Globulin Ratio (1.0-2.2) Urine Color Urine Clarity (CLEAR) Urine pH (5.0-7.5) PH Ur Specific Willow (1.002-1.030) Urine Protein (NEGATIVE) mg/dL Urine Glucose (UA) (NEGATIVE) mg/dL Urine Ketones (NEGATIVE) mg/dL Urine Occult Blood (NEGATIVE) Urine Nitrite (NEGATIVE) Urine Bilirubin (NEGATIVE) Urine Urobilinogen (NORMAL) E.U./dL Ur Leukocyte Esterase (NEGATIVE) Ur Microscopic Review Urine Culture Comments 02/15/17 02/15/17 Range/Units 15:32 15:23 WBC (4.8-10.8) x10^3/uL RBC (4.70-6.10) 10^6/uL Hgb (14.0-18.0) g/dL Hct (42.0-52.0) % MCV (80.0-94.0) fL MCH (27.0-31.0) pg MCHC (32.0-36.0) g/dL RDW (12.0-15.0) % Plt Count (130-450) 10^3/uL MPV (7.4-11.4) fL Neut # (1.5-6.6) 10^3/uL Lymph # (1.5-3.5) 10^3/uL Laurens # (0.0-1.0) 10^3/uL Eos # (0.0-0.7) 10^3/uL Baso # (0.0-0.1) 10^3/uL Absolute Nucleated RBC x10^3/uL Nucleated RBC % /100WBC Sodium (135-145) mmol/L Potassium (3.5-5.0) mmol/L Chloride (101-111) mmol/L Carbon Dioxide (21-32) mmol/L Anion Gap (6-13) BUN (6-20) mg/dL Creatinine (0.6-1.2) mg/dL Estimated GFR (MDRD) (>89) Glucose (70-100) mg/dL POC Whole Bld Glucose (70 - 100) mg/dL Glycated Hemoglobin 7.2 H (4.6-6.2) % Estim Average Glucose 160 H (70-100) Calcium (8.5-10.3) mg/dL Magnesium (1.7-2.8) mg/dL Total Bilirubin (0.2-1.0) mg/dL AST (10-42) IU/L ALT (10-60) IU/L Alkaline Phosphatase (42-121) IU/L Total Protein (6.7-8.2) g/dL Albumin (3.2-5.5) g/dL Globulin (2.1-4.2) g/dL Albumin/Globulin Ratio (1.0-2.2) Urine Color YELLOW Urine Clarity CLEAR (CLEAR) Urine pH 6.0 (5.0-7.5) PH Ur Specific Willow 1.010 (1.002-1.030) Urine Protein NEGATIVE (NEGATIVE) mg/dL Urine Glucose (UA) NEGATIVE (NEGATIVE) mg/dL Urine Ketones NEGATIVE (NEGATIVE) mg/dL Urine Occult Blood NEGATIVE (NEGATIVE) Urine Nitrite NEGATIVE (NEGATIVE) Urine Bilirubin NEGATIVE (NEGATIVE) Urine Urobilinogen 0.2 (NORMAL) (NORMAL) E.U./dL Ur Leukocyte Esterase NEGATIVE (NEGATIVE) Ur Microscopic Review NOT INDICATED Urine Culture Comments NOT INDICATED Assessment/Plan - Problem List (1) Aspiration pneumonia Impression: Conclusion/Plan: pt report he feel better for breathing. pt has O2 at home. Now pt's SO2 is 95% with 3 liter continue antibiotics follow up blood culture and sputum culture pt's son report he had a choke and extensive cough and aspiration. Then he was diagnosis of pneumonia but no better after treated with PO antibiotics Cefepim blood and sputum culture, will follow up (2) Atrial fibrillation Conclusion/Plan: HR is good controlled. continue current treatment tele and vital monitor pt's daughter in law report pt has been Afib without anticoagulation due to risk of fall than the benefit. pt's HR is good control continue home meds for HR control tele, vital monitor (3) Congestive heart failure Conclusion/Plan: stable, continue current treatment tele, vital monitor stable, BNP at pt's baseline, CXR does reveal effusion continue Lasix as home meds daily Lab, vital monitor (4) DM2 (diabetes mellitus, type 2) Conclusion/Plan: glucose has high adjust insulin from mild to moderate insulin dosage hypoglycemia protocol Glucose is well controlled today, resume of home Lantus Slide scale, ACHS, hypoglycemia check A1C (5) HTN (hypertension) Conclusion/Plan: stable, resume of home BP meds vital, tele monitor (6) Renal insufficiency Conclusion/Plan: stable, chronic condition hydration and avoid nephrotoxic agent daily lab, vital monitor (7) Osteoarthritis Conclusion/Plan: chronic condition, pain control, resume home meds (8) Chronic pain continue to home pain meds: Morphin, and Oxycode (9) effusion at right knee Xray reveal moderate effusion at right knee. pt state he feel gradually difficult to walk and have pain for quite long period time. pt denies fever, warm at knee. consult with orthopedics surgeon, who will see pt, will follow up (2) Atrial fibrillation Qualifiers: Atrial fibrillation type: persistent Qualified Code(s): I48.1 - Persistent atrial fibrillation (3) Congestive heart failure Qualifiers: Congestive heart failure type: unspecified congestive heart failure type Congestive heart failure chronicity: chronic Qualified Code(s): I50.9 - Heart failure, unspecified
--- NOTE | 2017-02-16 16:10 | PROVIDER PROGRESS NOTE ---
Subjective - Prog Note Date Prog Note Date: 02/16/17 Prog Note Time: 16:08 - Subjective Pt reports feeling: No change (Patient complains of right knee pain for greater than a week. Atraumatic hx; no prior right knee problem. Has noted increased swelling and fluid in the knee. Painful gait. No fever. No other joint bothering him now. Hx of left knee surgery in the past) Objective - Vital Signs/Intake & Output Vital Signs: Vital Signs x48h Temp Pulse Resp BP Pulse Ox 02/16/17 15:53 36.9 C 64 18 131/56 H 94 02/16/17 11:24 57 L 20 113/47 L 95 Intake & Output: Intake & Output 02/13/17 02/14/17 02/15/17 02/16/17 23:59 23:59 23:59 23:59 Intake Total 500 1680 Balance 500 1680 - Lab Results Fish Bones: 02/16/17 04:57 02/16/17 04:57 Other Labs: Lab Results x24hrs 02/16/17 02/16/17 02/16/17 Range/Units 11:22 07:44 04:57 WBC (4.8-10.8) x10^3/uL RBC (4.70-6.10) 10^6/uL Hgb (14.0-18.0) g/dL Hct (42.0-52.0) % MCV (80.0-94.0) fL MCH (27.0-31.0) pg MCHC (32.0-36.0) g/dL RDW (12.0-15.0) % Plt Count (130-450) 10^3/uL MPV (7.4-11.4) fL Neut # (1.5-6.6) 10^3/uL Lymph # (1.5-3.5) 10^3/uL Coal # (0.0-1.0) 10^3/uL Eos # (0.0-0.7) 10^3/uL Baso # (0.0-0.1) 10^3/uL Absolute Nucleated RBC x10^3/uL Nucleated RBC % /100WBC Sodium 139 (135-145) mmol/L Potassium 3.9 (3.5-5.0) mmol/L Chloride 104 (101-111) mmol/L Carbon Dioxide 29 (21-32) mmol/L Anion Gap 6.0 (6-13) BUN 81 H* (6-20) mg/dL Creatinine 1.8 H (0.6-1.2) mg/dL Estimated GFR (MDRD) 36 L (>89) Glucose 144 H (70-100) mg/dL POC Whole Bld Glucose 322 H 132 H (70 - 100) mg/dL Glycated Hemoglobin (4.6-6.2) % Estim Average Glucose (70-100) Calcium 8.5 (8.5-10.3) mg/dL Magnesium 2.2 (1.7-2.8) mg/dL Total Bilirubin 0.5 (0.2-1.0) mg/dL AST 11 (10-42) IU/L ALT < 10 L (10-60) IU/L Alkaline Phosphatase 50 (42-121) IU/L Total Protein 6.1 L (6.7-8.2) g/dL Albumin 2.5 L (3.2-5.5) g/dL Globulin 3.6 (2.1-4.2) g/dL Albumin/Globulin Ratio 0.7 L (1.0-2.2) 02/16/17 02/15/17 02/15/17 Range/Units 04:57 20:43 16:30 WBC 5.4 (4.8-10.8) x10^3/uL RBC 3.18 L (4.70-6.10) 10^6/uL Hgb 9.7 L (14.0-18.0) g/dL Hct 30.3 L (42.0-52.0) % MCV 95.2 H (80.0-94.0) fL MCH 30.4 (27.0-31.0) pg MCHC 32.0 (32.0-36.0) g/dL RDW 14.9 (12.0-15.0) % Plt Count 98 L (130-450) 10^3/uL MPV 8.0 (7.4-11.4) fL Neut # 4.1 (1.5-6.6) 10^3/uL Lymph # 0.4 L (1.5-3.5) 10^3/uL Coal # 0.6 (0.0-1.0) 10^3/uL Eos # 0.3 (0.0-0.7) 10^3/uL Baso # 0.0 (0.0-0.1) 10^3/uL Absolute Nucleated RBC 0.00 x10^3/uL Nucleated RBC % 0.0 /100WBC Sodium (135-145) mmol/L Potassium (3.5-5.0) mmol/L Chloride (101-111) mmol/L Carbon Dioxide (21-32) mmol/L Anion Gap (6-13) BUN (6-20) mg/dL Creatinine (0.6-1.2) mg/dL Estimated GFR (MDRD) (>89) Glucose (70-100) mg/dL POC Whole Bld Glucose 217 H 208 H (70 - 100) mg/dL Glycated Hemoglobin (4.6-6.2) % Estim Average Glucose (70-100) Calcium (8.5-10.3) mg/dL Magnesium (1.7-2.8) mg/dL Total Bilirubin (0.2-1.0) mg/dL AST (10-42) IU/L ALT (10-60) IU/L Alkaline Phosphatase (42-121) IU/L Total Protein (6.7-8.2) g/dL Albumin (3.2-5.5) g/dL Globulin (2.1-4.2) g/dL Albumin/Globulin Ratio (1.0-2.2) 02/15/17 Range/Units 15:23 WBC (4.8-10.8) x10^3/uL RBC (4.70-6.10) 10^6/uL Hgb (14.0-18.0) g/dL Hct (42.0-52.0) % MCV (80.0-94.0) fL MCH (27.0-31.0) pg MCHC (32.0-36.0) g/dL RDW (12.0-15.0) % Plt Count (130-450) 10^3/uL MPV (7.4-11.4) fL Neut # (1.5-6.6) 10^3/uL Lymph # (1.5-3.5) 10^3/uL Coal # (0.0-1.0) 10^3/uL Eos # (0.0-0.7) 10^3/uL Baso # (0.0-0.1) 10^3/uL Absolute Nucleated RBC x10^3/uL Nucleated RBC % /100WBC Sodium (135-145) mmol/L Potassium (3.5-5.0) mmol/L Chloride (101-111) mmol/L Carbon Dioxide (21-32) mmol/L Anion Gap (6-13) BUN (6-20) mg/dL Creatinine (0.6-1.2) mg/dL Estimated GFR (MDRD) (>89) Glucose (70-100) mg/dL POC Whole Bld Glucose (70 - 100) mg/dL Glycated Hemoglobin 7.2 H (4.6-6.2) % Estim Average Glucose 160 H (70-100) Calcium (8.5-10.3) mg/dL Magnesium (1.7-2.8) mg/dL Total Bilirubin (0.2-1.0) mg/dL AST (10-42) IU/L ALT (10-60) IU/L Alkaline Phosphatase (42-121) IU/L Total Protein (6.7-8.2) g/dL Albumin (3.2-5.5) g/dL Globulin (2.1-4.2) g/dL Albumin/Globulin Ratio (1.0-2.2) - Diagnostic Imaging Diagnostic Imaging Comments: No fracture/dislocation - Other Results/Comments Other Results/Comments: EXAM: Right knee - 1-2 +effusion. Generalized tenderness about knee. No gross instability of the knee ligaments. ROM:15-45 degrees without pain. N/V ok distally Assessment/Plan - Problem List (1) Knee effusion, right Impression: Admitted for treatment of pneumonia. Concerned about bacteremia and possible seeding a right knee septic joint PLAN: After betadine skin preparation, a 18 gauge needle inserted into right knee from lateral parapatellar approach. Aspirated 30 ml of blood tinged, serous fluid from the knee. Patient tolerated the procedure well. Fluid sent to lab for stat Gram stain, aerobic and anaerobic cultures and sensitivities. Will need a cell count and crystal analysis of the fluid as well. Continue warmth to knee; activities as tolerated; is still on antibiotics for pneumonia.
[2017-02-16 17:20] LABS: BF CLARITY BLOODY; BF COLOR BLOODY
[2017-02-16] MEDS ORDERED: ZINC OXIDE 20% OINT 28.35 GM TUBE TOP PRN (17:20)
[2017-02-16 17:26] LABS: LYMPHOCYTES %,BODY FLUID 4; MESOTHELIAL %, BF 2 %; NEUTROPHILS %, BF 94 %
[2017-02-16] MEDS ORDERED: MIN OIL/DIMETHICON/COCONUT OIL 92 GM TUBE TOP ONE (20:15)
[2017-02-16] MEDS: MIN OIL/DIMETHICON/COCONUT OIL 92 GM TUBE TOP PRN (20:15)
[2017-02-16] MEDS: AMITRIPTYLINE 10 MG TABLET PO SCH (20:54)
[2017-02-16] MEDS: ATORVASTATIN 10 MG TABLET PO SCH (20:54)
[2017-02-17] MEDS: oxyCODONE 5 MG TABLET PO PRN ×2 (00:06→12:52)
[2017-02-17] MEDS ORDERED: MORPHINE 2 MG/ML SYRINGE IVP PRN (04:16)
[2017-02-17 06:07] LABS: BASOPHILS % (AUTO) 0.3 %; EOSINOPHILS # (AUTO) 0.2 10^3/uL (0.0-0.7); EOSINOPHILS % (AUTO) 2.5 %; HCT - HEMATOCRIT 31.7 % (42.0-52.0); HGB - HEMOGLOBIN 10.3 g/dL (14.0-18.0); LYMPHOCYTES # (AUTO) 0.4 10^3/uL (1.5-3.5); LYMPHOCYTES % (AUTO) 6.1 %; MEAN CORPUSCULAR HEMOGLOBIN 30.7 pg (27.0-31.0); MEAN CORPUSCULAR HGB CONC 32.4 g/dL (32.0-36.0); MEAN CORPUSCULAR VOLUME 94.9 fL (80.0-94.0); MEAN PLATELET VOLUME 8.7 fL (7.4-11.4); MONOCYTES # (AUTO) 0.8 10^3/uL (0.0-1.0); MONOCYTES % (AUTO) 12.2 %; NEUTROPHILS # (AUTO) 5.1 10^3/uL (1.5-6.6); NEUTROPHILS % (AUTO) 78.9 %; NUCLEATED RED BLOOD CELLS AUTO 0.1 /100WBC; RED BLOOD COUNT 3.34 10^6/uL (4.70-6.10); RED CELL DISTRIBUTION WIDTH 14.9 % (12.0-15.0); UNCORRECTED WHITE BLOOD COUNT 6.5 x10^3/uL; WHITE BLOOD COUNT 6.5 x10^3/uL (4.8-10.8)
[2017-02-17 06:22] LABS: ALBUMIN/GLOBULIN RATIO 0.6 (1.0-2.2); BILIRUBIN,TOTAL 0.5 mg/dL (0.2-1.0); CALCIUM 8.7 mg/dL (8.5-10.3); CREATININE 1.9 mg/dL (0.6-1.2); POTASSIUM 4.4 mmol/L (3.5-5.0); TOTAL PROTEIN 6.4 g/dL (6.7-8.2)
[2017-02-17] MEDS: CEFEPIME 1 GM in SODIUM CHLORIDE 0.9% MINIBAG 100 ML IV SCH ×3 (06:35→21:42)
[2017-02-17] MEDS: SODIUM CHLORIDE FLUSH 0.9% 10 ML SYRINGE IVP SCH ×3 (06:35→18:47)
[2017-02-17] MEDS ORDERED: A & D OINTMENT 5 GM PACKET TOP PRN (07:47)
[2017-02-17] MEDS: INSULIN ASPART 300 UNIT/3 ML PEN SUBQ SCH ×4 (09:53→21:18)
[2017-02-17] MEDS: INSULIN GLARGINE 300 UNIT/3 ML PEN SUBQ SCH (09:55)
[2017-02-17] MEDS: HEPARIN 5,000 UNIT/ML VIAL SUBQ SCH ×2 (09:56→19:05)
[2017-02-17] MEDS: MINERAL OIL/HYDROPHIL PETROLAT 454 GM JAR TOP SCH ×2 (10:13→20:46)
[2017-02-17] MEDS: POLYETHYLENE GLYCOL 3350 17 GM PACKET PO SCH (10:31)
[2017-02-17] MEDS: MORPHINE ER 15 MG TABLET PO SCH ×2 (10:32→20:42)
[2017-02-17] MEDS: FUROSEMIDE 40 MG TABLET PO SCH (10:33)
[2017-02-17] MEDS: CARVEDILOL 12.5 MG TABLET PO SCH ×2 (10:37→19:02)
[2017-02-17] MEDS: TAMSULOSIN 0.4 MG CAPSULE PO SCH ×2 (10:38→19:31)
[2017-02-17] MEDS: hydrALAZINE 25 MG TABLET PO SCH ×2 (10:50→19:19)
[2017-02-17] MEDS: PANTOPRAZOLE 40 MG TABLET PO SCH ×2 (10:50→19:30)
[2017-02-17] MEDS: FOLIC ACID 1 MG TABLET PO SCH (10:58)
[2017-02-17] MEDS: DOCUSATE SODIUM 100 MG CAPSULE PO SCH ×2 (10:58→19:04)
[2017-02-17] MEDS: FERROUS GLUCONATE 324 MG TABLET PO SCH (10:58)
[2017-02-17] MEDS: SENNA 8.6 MG TABLET PO SCH ×2 (11:19→19:17)
--- NOTE | 2017-02-17 13:11 | PROVIDER PROGRESS NOTE ---
Subjective - Prog Note Date Prog Note Date: 02/17/17 - Subjective Pt reports feeling: Improved Subjective: pt report his knee pain has some release but still has some pain. Discuss with Dr. Anne, pt may have a steroid inject to the knee on tomorrow. Current Medications - Current Medications Current Medications: Active Medications Acetaminophen (Tylenol) 650 mg PO Q4HR PRN PRN Reason: Pain 1 to 4 Last Admin: 02/15/17 15:13 Dose: 650 mg Amitriptyline HCl (Elavil) 10 mg PO QPM [facility] Last Admin: 02/16/17 20:54 Dose: 10 mg Atorvastatin Calcium (Lipitor) 10 mg PO QPM [facility] Last Admin: 02/16/17 20:54 Dose: 10 mg Carvedilol (Coreg) 25 mg PO BID [facility] Last Admin: 02/17/17 10:37 Dose: 25 mg Docusate Sodium (Colace 100mg Capsule) 100 mg PO BID [facility] Last Admin: 02/17/17 10:58 Dose: 100 mg Emollient Ointment (Hydrophor) 1 applic TOP BID [facility] Last Admin: 02/17/17 10:13 Dose: 1 applic Ferrous Gluconate (Fergon) 324 mg PO DAILY [facility] Last Admin: 02/17/17 10:58 Dose: 324 mg Folic Acid () 1 mg PO DAILY [facility] Last Admin: 02/17/17 10:58 Dose: 1 mg Furosemide (Lasix) 80 mg PO DAILY [facility] Last Admin: 02/17/17 10:33 Dose: 80 mg Heparin Sodium (Porcine) () 5,000 unit SUBQ BID [facility] Last Admin: 02/17/17 09:56 Dose: 5,000 unit Hydralazine HCl (Apresoline) 50 mg PO BID [facility] Last Admin: 02/17/17 10:50 Dose: 50 mg Cefepime HCl 1 gm/ Sodium (Chloride) 100 mls @ 200 mls/hr IV TID [facility] Last Infusion: 02/17/17 07:05 Dose: Infused Insulin Aspart (Novolog) 2 - 10 unit SUBQ 0800,1200,1700,2100 [facility] PRN Reason: Protocol Last Admin: 02/17/17 12:44 Dose: 6 unit Insulin Glargine (Lantus Solostar) 10 unit SUBQ QDBREAKFAST [facility] Last Admin: 02/17/17 09:55 Dose: 10 unit Mineral Oil (Cavilon) 1 applic TOP PRN PRN PRN Reason: Skin Care Last Admin: 02/16/17 20:15 Dose: 1 applic Morphine Sulfate () 15 mg PO BID [facility] Last Admin: 02/17/17 10:32 Dose: 15 mg Morphine Sulfate (Morphine) 2 mg IVP Q2H PRN PRN Reason: PAIN Last Admin: 02/17/17 04:28 Dose: 2 mg Multi-Ingredient Ointment (Zinc Oxide) 0 applic TOP PRN PRN PRN Reason: Skin Care Ondansetron HCl (Zofran Inj) 4 mg IVP Q6HR PRN PRN Reason: Nausea / Vomiting Oxycodone HCl (Roxicodone) 15 mg PO TID PRN PRN Reason: pain Last Admin: 02/17/17 12:52 Dose: 15 mg Pantoprazole Sodium (Protonix) 40 mg PO BID [facility] Last Admin: 02/17/17 10:50 Dose: 40 mg Polyethylene Glycol (Miralax) 17 gm PO DAILY [facility] Last Admin: 02/17/17 10:31 Dose: 17 gm Prazosin HCl (Minipress) 5 mg PO BID PRN PRN Reason: Constipation Senna (Senokot) 17.2 mg PO BID [facility] Last Admin: 02/17/17 11:19 Dose: 17.2 mg Sodium Chloride (Normal Saline Flush 0.9%) 10 ml IVP PRN PRN PRN Reason: NEEDED PER PROVIDER ORDERS Last Admin: 02/16/17 06:28 Dose: 10 ml Sodium Chloride (Normal Saline Flush 0.9%) 10 ml IVP Q8HR [facility] Last Admin: 02/17/17 06:35 Dose: 10 ml Tamsulosin HCl (Flomax) 0.4 mg PO BID [facility] Last Admin: 02/17/17 10:38 Dose: 0.4 mg Vitamin A/Vitamin D (Vitamin A & D Ointment) 1 applic TOP PRN PRN PRN Reason: Skin Care Last Admin: 02/17/17 07:51 Dose: 1 applic Carvedilol 25 mg PO BID 01/23/13 Ferrous Gluconate 324 mg PO DAILY 01/23/13 Folic Acid 1 mg PO DAILY 01/23/13 Omeprazole [PriLOSEC] 20 mg PO BID 01/23/13 Simvastatin 20 mg PO HS 01/23/13 hydrALAZINE [Apresoline] 50 mg PO BID 01/23/13 oxyCODONE [Roxicodone] 15 mg PO TID PRN 01/23/13 Docusate Sodium 100Mg Capsule [Colace 100Mg Capsule] 100 mg PO BID 03/20/13 Polyethylene Glycol 3350 [Miralax] 8.5 - 17 gm PO DAILY PRN 03/20/13 Prazosin [Minipress] 5 mg PO BID 03/20/13 Senna [Senokot] 17.2 mg PO BID 03/20/13 Insulin Glargine,Hum.rec.anlog [Lantus] 10 units SUBQ QDBREAKFAST 05/30/13 Tamsulosin [Flomax] 0.4 mg PO BID 11/29/14 Furosemide 80 mg PO DAILY 11/30/14 Amitriptyline [Elavil] 10 mg PO 2100 02/15/17 Azithromycin [Zithromax Tri-Jan] 500 mg PO DAILY 02/15/17 Morphine Sulfate [Ms Contin] 15 mg PO BID 02/15/17 Zolpidem [Ambien] 5 mg PO HS PRN 02/15/17 Objective - Vital Signs/Intake & Output Reviewed Vital Signs: Yes Vital Signs: Vital Signs x48h Temp Pulse Resp BP Pulse Ox 02/17/17 13:02 59 L 20 130/80 98 02/17/17 07:54 36.0 C L 52 L 20 118/51 L 97 Intake & Output: Intake & Output 02/14/17 02/15/17 02/16/17 02/17/17 23:59 23:59 23:59 23:59 Intake Total 500 2380 1080 Output Total 150 Balance 500 2380 930 - Objective General Appearance: positive: No acute distress, Alert. negative: Lethargic Eyes Bilateral: positive: Normal inspection, PERRL, No lid inflammation, Conjunctivae nml ENT: positive: ENT inspection nml, Pharynx nml, No signs of dehydration. negative: Purulent nasal drainage, Pharyngeal erythema, Oral lesions Neck: positive: Nml inspection, Thyroid nml, Trachea midline. negative: Thyromegaly, Lymphadenopathy (R), Lymphadenopathy (L), Stiff neck, Carotid bruit , Swelling/bruising, Tracheal deviation Respiratory: positive: Chest non-tender, No respiratory distress, Other ( reduced lung sound). negative: Wheezes, Rales Cardiovascular: positive: Regular rate & rhythm, No murmur, No gallop. negative : Irregularly irregular, Extrasystoles, Tachycardia, Bradycardia, Systolic murmur, Diastolic murmur Peripheral Pulses: 2+ Radial (R), 2+ Radial (L), 2+ Dorsalis pedis (R), 2+ Dorsalis pedis (L) Back: positive: Nml inspection. negative: CVA tenderness (R), CVA tenderness (L ) Skin: positive: Color nml, No rash, Warm, Dry. negative: Cyanosis, Diaphoresis , Pallor Extremities: positive: Non-tender, Nml appearance. negative: Calf tenderness, Joint swelling, Balwinder's sign/cords Neurologic/Psychiatric: positive: Oriented x3, Sensation nml. negative: Sensory loss, Facial droop, Slurred/abnml speech, Depressed mood/affect - Lab Results Fish Bones: 02/17/17 04:59 02/17/17 04:59 Other Labs: Lab Results x24hrs 02/17/17 02/17/17 02/17/17 Range/Units 12:05 07:53 04:59 WBC (4.8-10.8) x10^3/uL RBC (4.70-6.10) 10^6/uL Hgb (14.0-18.0) g/dL Hct (42.0-52.0) % MCV (80.0-94.0) fL MCH (27.0-31.0) pg MCHC (32.0-36.0) g/dL RDW (12.0-15.0) % Plt Count (130-450) 10^3/uL MPV (7.4-11.4) fL Neut # (1.5-6.6) 10^3/uL Lymph # (1.5-3.5) 10^3/uL [place] # (0.0-1.0) 10^3/uL Eos # (0.0-0.7) 10^3/uL Baso # (0.0-0.1) 10^3/uL Absolute Nucleated RBC x10^3/uL Nucleated RBC % /100WBC Sodium 137 (135-145) mmol/L Potassium 4.4 (3.5-5.0) mmol/L Chloride 100 L (101-111) mmol/L Carbon Dioxide 29 (21-32) mmol/L Anion Gap 8.0 (6-13) BUN 79 H (6-20) mg/dL Creatinine 1.9 H (0.6-1.2) mg/dL Estimated GFR (MDRD) 34 L (>89) Glucose 159 H (70-100) mg/dL POC Whole Bld Glucose 232 H 159 H (70 - 100) mg/dL Calcium 8.7 (8.5-10.3) mg/dL Total Bilirubin 0.5 (0.2-1.0) mg/dL AST 12 (10-42) IU/L ALT 10 (10-60) IU/L Alkaline Phosphatase 56 (42-121) IU/L Total Protein 6.4 L (6.7-8.2) g/dL Albumin 2.4 L (3.2-5.5) g/dL Globulin 4.0 (2.1-4.2) g/dL Albumin/Globulin Ratio 0.6 L (1.0-2.2) Fluid Source Fluid Color Fluid Clarity Fluid WBC Fluid Neutrophils % % Fluid Lymphocytes % Fld Mesothelial Cell % % Fluid Crystals (N) 02/17/17 02/16/17 02/16/17 Range/Units 04:59 20:47 16:28 WBC 6.5 (4.8-10.8) x10^3/uL RBC 3.34 L (4.70-6.10) 10^6/uL Hgb 10.3 L (14.0-18.0) g/dL Hct 31.7 L (42.0-52.0) % MCV 94.9 H (80.0-94.0) fL MCH 30.7 (27.0-31.0) pg MCHC 32.4 (32.0-36.0) g/dL RDW 14.9 (12.0-15.0) % Plt Count 111 L (130-450) 10^3/uL MPV 8.7 (7.4-11.4) fL Neut # 5.1 (1.5-6.6) 10^3/uL Lymph # 0.4 L (1.5-3.5) 10^3/uL [place] # 0.8 (0.0-1.0) 10^3/uL Eos # 0.2 (0.0-0.7) 10^3/uL Baso # 0.0 (0.0-0.1) 10^3/uL Absolute Nucleated RBC 0.01 x10^3/uL Nucleated RBC % 0.1 /100WBC Sodium (135-145) mmol/L Potassium (3.5-5.0) mmol/L Chloride (101-111) mmol/L Carbon Dioxide (21-32) mmol/L Anion Gap (6-13) BUN (6-20) mg/dL Creatinine (0.6-1.2) mg/dL Estimated GFR (MDRD) (>89) Glucose (70-100) mg/dL POC Whole Bld Glucose 200 H 216 H (70 - 100) mg/dL Calcium (8.5-10.3) mg/dL Total Bilirubin (0.2-1.0) mg/dL AST (10-42) IU/L ALT (10-60) IU/L Alkaline Phosphatase (42-121) IU/L Total Protein (6.7-8.2) g/dL Albumin (3.2-5.5) g/dL Globulin (2.1-4.2) g/dL Albumin/Globulin Ratio (1.0-2.2) Fluid Source Fluid Color Fluid Clarity Fluid WBC Fluid Neutrophils % % Fluid Lymphocytes % Fld Mesothelial Cell % % Fluid Crystals (N) 02/16/17 02/16/17 Range/Units 15:38 15:38 WBC (4.8-10.8) x10^3/uL RBC (4.70-6.10) 10^6/uL Hgb (14.0-18.0) g/dL Hct (42.0-52.0) % MCV (80.0-94.0) fL MCH (27.0-31.0) pg MCHC (32.0-36.0) g/dL RDW (12.0-15.0) % Plt Count (130-450) 10^3/uL MPV (7.4-11.4) fL Neut # (1.5-6.6) 10^3/uL Lymph # (1.5-3.5) 10^3/uL [place] # (0.0-1.0) 10^3/uL Eos # (0.0-0.7) 10^3/uL Baso # (0.0-0.1) 10^3/uL Absolute Nucleated RBC x10^3/uL Nucleated RBC % /100WBC Sodium (135-145) mmol/L Potassium (3.5-5.0) mmol/L Chloride (101-111) mmol/L Carbon Dioxide (21-32) mmol/L Anion Gap (6-13) BUN (6-20) mg/dL Creatinine (0.6-1.2) mg/dL Estimated GFR (MDRD) (>89) Glucose (70-100) mg/dL POC Whole Bld Glucose (70 - 100) mg/dL Calcium (8.5-10.3) mg/dL Total Bilirubin (0.2-1.0) mg/dL AST (10-42) IU/L ALT (10-60) IU/L Alkaline Phosphatase (42-121) IU/L Total Protein (6.7-8.2) g/dL Albumin (3.2-5.5) g/dL Globulin (2.1-4.2) g/dL Albumin/Globulin Ratio (1.0-2.2) Fluid Source SYNOVIAL Fluid Color BLOODY Fluid Clarity BLOODY Fluid WBC 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 Pt's SO2 reach to 98% at 2 liter, it is very good SO2 continue antibiotics preliminary blood culture negative continue to monitor pt tele, vital pt report he feel better for breathing. pt has O2 at home. Now pt's SO2 is 95% with 3 liter continue antibiotics follow up blood culture and sputum culture pt's son report he had a choke and extensive cough and aspiration. Then he was diagnosis of pneumonia but no better after treated with PO antibiotics Cefepim blood and sputum culture, will follow up (2) Atrial fibrillation Conclusion/Plan: stable, continue treatment HR is good controlled. continue current treatment tele and vital monitor pt's daughter in law report pt has been Afib without anticoagulation due to risk of fall than the benefit. pt's HR is good control continue home meds for HR control tele, vital monitor (3) Congestive heart failure Conclusion/Plan: stable, continue current treatment tele, vital monitor stable, BNP at pt's baseline, CXR does reveal effusion continue Lasix as home meds daily Lab, vital monitor (4) DM2 (diabetes mellitus, type 2) Conclusion/Plan: glucose is good controlled continue current insulin regime slide scale glucose has high adjust insulin from mild to moderate insulin dosage hypoglycemia protocol Glucose is well controlled today, resume of home Lantus Slide scale, ACHS, hypoglycemia check A1C (5) HTN (hypertension) Conclusion/Plan: stable, resume of home BP meds vital, tele monitor (6) Renal insufficiency Conclusion/Plan: stable, chronic condition hydration and avoid nephrotoxic agent daily lab, vital monitor (7) Osteoarthritis Conclusion/Plan: chronic condition, pain control, resume home meds (8) Chronic pain continue to home pain meds: Morphin, and Oxycode (9) effusion at right knee pt still complain of some pain at the knee. Pt may have steroid injection on the knee by orthopedics preliminary data reveals negative bacterial growth. continue pain control and support Xray reveal moderate effusion at right knee. pt state he feel gradually difficult to walk and have pain for quite long period time. pt denies fever, warm at knee. consult with orthopedics surgeon, who will see pt, will follow up (2) Atrial fibrillation Qualifiers: Atrial fibrillation type: persistent Qualified Code(s): I48.1 - Persistent atrial fibrillation (3) Congestive heart failure Qualifiers: Congestive heart failure type: unspecified congestive heart failure type Congestive heart failure chronicity: chronic Qualified Code(s): I50.9 - Heart failure, unspecified
--- NOTE | 2017-02-17 13:11 | PROVIDER PROGRESS NOTE ---
Subjective - Prog Note Date Prog Note Date: 02/17/17 Prog Note Time: 13:06 - Subjective Pt reports feeling: No change (Still quite painful moving in bed and in PT.) Objective - Vital Signs/Intake & Output Vital Signs: Vital Signs x48h Temp Pulse Resp BP Pulse Ox 02/17/17 13:02 59 L 20 130/80 98 02/17/17 07:54 36.0 C L 52 L 20 118/51 L 97 Intake & Output: Intake & Output 02/14/17 02/15/17 02/16/17 02/17/17 23:59 23:59 23:59 23:59 Intake Total 500 2380 1080 Output Total 150 Balance 500 2380 930 - Lab Results Fish Bones: 02/17/17 04:59 02/17/17 04:59 Other Labs: Lab Results x24hrs 02/17/17 02/17/17 02/17/17 Range/Units 12:05 07:53 04:59 WBC (4.8-10.8) x10^3/uL RBC (4.70-6.10) 10^6/uL Hgb (14.0-18.0) g/dL Hct (42.0-52.0) % MCV (80.0-94.0) fL MCH (27.0-31.0) pg MCHC (32.0-36.0) g/dL RDW (12.0-15.0) % Plt Count (130-450) 10^3/uL MPV (7.4-11.4) fL Neut # (1.5-6.6) 10^3/uL Lymph # (1.5-3.5) 10^3/uL [place] # (0.0-1.0) 10^3/uL Eos # (0.0-0.7) 10^3/uL Baso # (0.0-0.1) 10^3/uL Absolute Nucleated RBC x10^3/uL Nucleated RBC % /100WBC Sodium 137 (135-145) mmol/L Potassium 4.4 (3.5-5.0) mmol/L Chloride 100 L (101-111) mmol/L Carbon Dioxide 29 (21-32) mmol/L Anion Gap 8.0 (6-13) BUN 79 H (6-20) mg/dL Creatinine 1.9 H (0.6-1.2) mg/dL Estimated GFR (MDRD) 34 L (>89) Glucose 159 H (70-100) mg/dL POC Whole Bld Glucose 232 H 159 H (70 - 100) mg/dL Calcium 8.7 (8.5-10.3) mg/dL Total Bilirubin 0.5 (0.2-1.0) mg/dL AST 12 (10-42) IU/L ALT 10 (10-60) IU/L Alkaline Phosphatase 56 (42-121) IU/L Total Protein 6.4 L (6.7-8.2) g/dL Albumin 2.4 L (3.2-5.5) g/dL Globulin 4.0 (2.1-4.2) g/dL Albumin/Globulin Ratio 0.6 L (1.0-2.2) Fluid Source Fluid Color Fluid Clarity Fluid WBC Fluid Neutrophils % % Fluid Lymphocytes % Fld Mesothelial Cell % % Fluid Crystals (N) 02/17/17 02/16/17 02/16/17 Range/Units 04:59 20:47 16:28 WBC 6.5 (4.8-10.8) x10^3/uL RBC 3.34 L (4.70-6.10) 10^6/uL Hgb 10.3 L (14.0-18.0) g/dL Hct 31.7 L (42.0-52.0) % MCV 94.9 H (80.0-94.0) fL MCH 30.7 (27.0-31.0) pg MCHC 32.4 (32.0-36.0) g/dL RDW 14.9 (12.0-15.0) % Plt Count 111 L (130-450) 10^3/uL MPV 8.7 (7.4-11.4) fL Neut # 5.1 (1.5-6.6) 10^3/uL Lymph # 0.4 L (1.5-3.5) 10^3/uL [place] # 0.8 (0.0-1.0) 10^3/uL Eos # 0.2 (0.0-0.7) 10^3/uL Baso # 0.0 (0.0-0.1) 10^3/uL Absolute Nucleated RBC 0.01 x10^3/uL Nucleated RBC % 0.1 /100WBC Sodium (135-145) mmol/L Potassium (3.5-5.0) mmol/L Chloride (101-111) mmol/L Carbon Dioxide (21-32) mmol/L Anion Gap (6-13) BUN (6-20) mg/dL Creatinine (0.6-1.2) mg/dL Estimated GFR (MDRD) (>89) Glucose (70-100) mg/dL POC Whole Bld Glucose 200 H 216 H (70 - 100) mg/dL Calcium (8.5-10.3) mg/dL Total Bilirubin (0.2-1.0) mg/dL AST (10-42) IU/L ALT (10-60) IU/L Alkaline Phosphatase (42-121) IU/L Total Protein (6.7-8.2) g/dL Albumin (3.2-5.5) g/dL Globulin (2.1-4.2) g/dL Albumin/Globulin Ratio (1.0-2.2) Fluid Source Fluid Color Fluid Clarity Fluid WBC Fluid Neutrophils % % Fluid Lymphocytes % Fld Mesothelial Cell % % Fluid Crystals (N) 02/16/17 02/16/17 Range/Units 15:38 15:38 WBC (4.8-10.8) x10^3/uL RBC (4.70-6.10) 10^6/uL Hgb (14.0-18.0) g/dL Hct (42.0-52.0) % MCV (80.0-94.0) fL MCH (27.0-31.0) pg MCHC (32.0-36.0) g/dL RDW (12.0-15.0) % Plt Count (130-450) 10^3/uL MPV (7.4-11.4) fL Neut # (1.5-6.6) 10^3/uL Lymph # (1.5-3.5) 10^3/uL [place] # (0.0-1.0) 10^3/uL Eos # (0.0-0.7) 10^3/uL Baso # (0.0-0.1) 10^3/uL Absolute Nucleated RBC x10^3/uL Nucleated RBC % /100WBC Sodium (135-145) mmol/L Potassium (3.5-5.0) mmol/L Chloride (101-111) mmol/L Carbon Dioxide (21-32) mmol/L Anion Gap (6-13) BUN (6-20) mg/dL Creatinine (0.6-1.2) mg/dL Estimated GFR (MDRD) (>89) Glucose (70-100) mg/dL POC Whole Bld Glucose (70 - 100) mg/dL Calcium (8.5-10.3) mg/dL Total Bilirubin (0.2-1.0) mg/dL AST (10-42) IU/L ALT (10-60) IU/L Alkaline Phosphatase (42-121) IU/L Total Protein (6.7-8.2) g/dL Albumin (3.2-5.5) g/dL Globulin (2.1-4.2) g/dL Albumin/Globulin Ratio (1.0-2.2) Fluid Source SYNOVIAL Fluid Color BLOODY Fluid Clarity BLOODY 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 Preliminary data suggests inflammation from underlying osteoarthritis of the knee. PLAN: As he has significant renal disease, NSAID's can not be used. CONTINUE WITH TYLENOL NEEDED. iF KNEE ASPIRATION STILL NEGATIVE FOR BACTERIA GROWTH AFTER 2 DAYS, WILL CONSIDER INTRA-ARTICULAR STEROID SHOT TO KNEE. tHIS WAS DISCUSSED WITH PATIENT'S FAMILY AND DINATyler MCINTOSH. ALL AGREE THAT THIS WOULD NOT BE CURATIVE BUT WOULD LIKELY PROVIDE SOME TEMPORARY RELIEF FOR THE KNEE.
[2017-02-17] MEDS ORDERED: LIDOCAINE PATCH 5% TOP PRN (15:35)
[2017-02-17] MEDS ORDERED: MAGNESIUM HYDROXIDE 2,400 MG/30 ML UDC PO ONE (16:00)
[2017-02-17] MEDS: PRAZOSIN 1 MG CAPSULE PO SCH ×2 (17:44→20:51)
[2017-02-17] MEDS: ATORVASTATIN 10 MG TABLET PO SCH (19:02)
[2017-02-17] MEDS: AMITRIPTYLINE 10 MG TABLET PO SCH (19:32)
[2017-02-18] MEDS: SODIUM CHLORIDE FLUSH 0.9% 10 ML SYRINGE IVP SCH ×3 (05:11→23:01)
[2017-02-18] MEDS: CEFEPIME 1 GM in SODIUM CHLORIDE 0.9% MINIBAG 100 ML IV SCH ×3 (05:24→23:01)
[2017-02-18] MEDS: oxyCODONE 5 MG TABLET PO PRN (05:37)
[2017-02-18 05:39] LABS: BASOPHILS % (AUTO) 0.4 %; EOSINOPHILS # (AUTO) 0.3 10^3/uL (0.0-0.7); EOSINOPHILS % (AUTO) 6.3 %; HCT - HEMATOCRIT 29.7 % (42.0-52.0); HGB - HEMOGLOBIN 9.7 g/dL (14.0-18.0); LYMPHOCYTES # (AUTO) 0.5 10^3/uL (1.5-3.5); LYMPHOCYTES % (AUTO) 9.3 %; MEAN CORPUSCULAR HEMOGLOBIN 30.8 pg (27.0-31.0); MEAN CORPUSCULAR HGB CONC 32.6 g/dL (32.0-36.0); MEAN CORPUSCULAR VOLUME 94.6 fL (80.0-94.0); MEAN PLATELET VOLUME 7.9 fL (7.4-11.4); MONOCYTES # (AUTO) 0.7 10^3/uL (0.0-1.0); MONOCYTES % (AUTO) 13.1 %; NEUTROPHILS # (AUTO) 3.6 10^3/uL (1.5-6.6); NEUTROPHILS % (AUTO) 70.9 %; RED BLOOD COUNT 3.14 10^6/uL (4.70-6.10); RED CELL DISTRIBUTION WIDTH 14.7 % (12.0-15.0); UNCORRECTED WHITE BLOOD COUNT 5.1 x10^3/uL; WHITE BLOOD COUNT 5.1 x10^3/uL (4.8-10.8)
[2017-02-18] MEDS: SODIUM CHLORIDE FLUSH 0.9% 10 ML SYRINGE IVP PRN ×4 (05:54→23:35)
[2017-02-18 05:59] LABS: ALBUMIN/GLOBULIN RATIO 0.6 (1.0-2.2); BILIRUBIN,TOTAL 0.6 mg/dL (0.2-1.0); CALCIUM 8.9 mg/dL (8.5-10.3); CREATININE 1.9 mg/dL (0.6-1.2); POTASSIUM 4.3 mmol/L (3.5-5.0); TOTAL PROTEIN 6.1 g/dL (6.7-8.2)
--- NOTE | 2017-02-18 09:07 | PROVIDER PROGRESS NOTE ---
Subjective - Prog Note Date Prog Note Date: 02/18/17 - Subjective Pt reports feeling: No change Subjective: pt is alert and oriented. Discuss with pt about palliative care and discharge planning. Extensively explanation and discussion with nurse together about the benefit and risk of all these care plans to pt. But Pt can not make any decision at this time today if he want to have palliative care or discharge to SNF. pt state he will discuss with his family about these decisions. Pt's daughter in law just come to see pt, and request me to see pt. I see pt and discuss pt and his daughter in law. Pt now agree to have a code status of DNR, and request palliative care. Palliative care provider is consulted and will see pt. Current Medications - Current Medications Current Medications: Active Medications Acetaminophen (Tylenol) 650 mg PO Q4HR PRN PRN Reason: Pain 1 to 4 Last Admin: 02/15/17 15:13 Dose: 650 mg Amitriptyline HCl (Elavil) 10 mg PO QPM [facility] Last Admin: 02/17/17 19:32 Dose: 10 mg Atorvastatin Calcium (Lipitor) 10 mg PO QPM [facility] Last Admin: 02/17/17 19:02 Dose: 10 mg Carvedilol (Coreg) 25 mg PO BID [facility] Last Admin: 02/18/17 10:35 Dose: 25 mg Docusate Sodium (Colace 100mg Capsule) 100 mg PO BID [facility] Last Admin: 02/18/17 10:43 Dose: 100 mg Emollient Ointment (Hydrophor) 1 applic TOP BID [facility] Last Admin: 02/18/17 10:48 Dose: 1 applic Ferrous Gluconate (Fergon) 324 mg PO DAILY [facility] Last Admin: 02/18/17 10:45 Dose: 324 mg Folic Acid () 1 mg PO DAILY [facility] Last Admin: 02/18/17 10:43 Dose: 1 mg Furosemide (Lasix) 80 mg PO DAILY [facility] Last Admin: 02/18/17 10:35 Dose: 80 mg Heparin Sodium (Porcine) () 5,000 unit SUBQ BID [facility] Last Admin: 02/18/17 10:25 Dose: 5,000 unit Hydralazine HCl (Apresoline) 50 mg PO BID [facility] Last Admin: 02/18/17 10:39 Dose: 50 mg Cefepime HCl 1 gm/ Sodium (Chloride) 100 mls @ 200 mls/hr IV TID [facility] Last Infusion: 02/18/17 05:54 Dose: Infused Bupivacaine HCl 31.25 ml/ (Sodium Chloride) 281.25 mls @ 10 mls/hr EPI ONCE [facility] Stop: 02/19/17 11:59 Insulin Aspart (Novolog) 2 - 10 unit SUBQ 0800,1200,1700,2100 ASHLY PRN Reason: Protocol Last Admin: 02/18/17 10:21 Dose: 2 unit Insulin Glargine (Lantus Solostar) 10 unit SUBQ QDBREAKFAST [facility] Last Admin: 02/18/17 10:24 Dose: 10 unit Lidocaine (Lidoderm Patch) 1 patch TOP DAILY PRN PRN Reason: PAIN Mineral Oil (Cavilon) 1 applic TOP PRN PRN PRN Reason: Skin Care Last Admin: 02/16/17 20:15 Dose: 1 applic Morphine Sulfate () 15 mg PO BID [facility] Last Admin: 02/18/17 10:39 Dose: 15 mg Morphine Sulfate (Morphine) 2 mg IVP Q2H PRN PRN Reason: PAIN Last Admin: 02/17/17 04:28 Dose: 2 mg Multi-Ingredient Ointment (Zinc Oxide) 0 applic TOP PRN PRN PRN Reason: Skin Care Ondansetron HCl (Zofran Inj) 4 mg IVP Q6HR PRN PRN Reason: Nausea / Vomiting Oxycodone HCl (Roxicodone) 15 mg PO TID PRN PRN Reason: pain Last Admin: 02/18/17 05:37 Dose: 15 mg Pantoprazole Sodium (Protonix) 40 mg PO BID [facility] Last Admin: 02/18/17 10:43 Dose: 40 mg Polyethylene Glycol (Miralax) 17 gm PO DAILY [facility] Last Admin: 02/18/17 10:52 Dose: 17 gm Senna (Senokot) 17.2 mg PO BID [facility] Last Admin: 02/18/17 10:41 Dose: 17.2 mg Sodium Chloride (Normal Saline Flush 0.9%) 10 ml IVP PRN PRN PRN Reason: NEEDED PER PROVIDER ORDERS Last Admin: 02/18/17 05:54 Dose: 10 ml Sodium Chloride (Normal Saline Flush 0.9%) 10 ml IVP Q8HR [facility] Last Admin: 02/18/17 05:11 Dose: 10 ml Tamsulosin HCl (Flomax) 0.4 mg PO BID [facility] Last Admin: 02/18/17 10:41 Dose: 0.4 mg Vitamin A/Vitamin D (Vitamin A & D Ointment) 1 applic TOP PRN PRN PRN Reason: Skin Care Last Admin: 02/17/17 07:51 Dose: 1 applic Carvedilol 25 mg PO BID 01/23/13 Ferrous Gluconate 324 mg PO DAILY 01/23/13 Folic Acid 1 mg PO DAILY 01/23/13 Omeprazole [PriLOSEC] 20 mg PO BID 01/23/13 Simvastatin 20 mg PO HS 01/23/13 hydrALAZINE [Apresoline] 50 mg PO BID 01/23/13 oxyCODONE [Roxicodone] 15 mg PO TID PRN 01/23/13 Docusate Sodium 100Mg Capsule [Colace 100Mg Capsule] 100 mg PO BID 03/20/13 Polyethylene Glycol 3350 [Miralax] 8.5 - 17 gm PO DAILY PRN 03/20/13 Prazosin [Minipress] 5 mg PO BID 03/20/13 Senna [Senokot] 17.2 mg PO BID 03/20/13 Insulin Glargine,Hum.rec.anlog [Lantus] 10 units SUBQ QDBREAKFAST 05/30/13 Tamsulosin [Flomax] 0.4 mg PO BID 11/29/14 Furosemide 80 mg PO DAILY 11/30/14 Amitriptyline [Elavil] 10 mg PO 2100 02/15/17 Azithromycin [Zithromax Tri-Jan] 500 mg PO DAILY 02/15/17 Morphine Sulfate [Ms Contin] 15 mg PO BID 02/15/17 Zolpidem [Ambien] 5 mg PO HS PRN 02/15/17 Objective - Vital Signs/Intake & Output Reviewed Vital Signs: Yes Vital Signs: Vital Signs x48h Temp Pulse Resp BP Pulse Ox 02/18/17 08:39 36.7 C 60 17 109/53 L 92 02/18/17 06:23 36.6 C 62 22 104/51 L 92 Intake & Output: Intake & Output 02/15/17 02/16/17 02/17/17 02/18/17 23:59 23:59 23:59 23:59 Intake Total 500 2380 1620 200 Output Total 150 Balance 500 2380 1470 200 - Objective General Appearance: positive: No acute distress, Alert. negative: Lethargic Eyes Bilateral: positive: Normal inspection, PERRL, No lid inflammation, Conjunctivae nml ENT: positive: ENT inspection nml, Pharynx nml, No signs of dehydration. negative: Purulent nasal drainage, Pharyngeal erythema, Oral lesions Neck: positive: Nml inspection, Thyroid nml, No JVD, Trachea midline. negative : Thyromegaly, Lymphadenopathy (R), Lymphadenopathy (L), Stiff neck, Carotid bruit, Swelling/bruising, Tracheal deviation Respiratory: positive: Chest non-tender, No respiratory distress, Rhonchi. negative: Wheezes, Rales Cardiovascular: positive: Regular rate & rhythm, No murmur, No gallop. negative : Irregularly irregular, Extrasystoles, Tachycardia, Bradycardia, Systolic murmur, Diastolic murmur Peripheral Pulses: 2+ Radial (R), 2+ Radial (L), 2+ Dorsalis pedis (R), 2+ Dorsalis pedis (L) Abdomen: positive: Non-tender, Nml bowel sounds, No distention. negative: Tenderness, Guarding, Rebound Back: positive: Nml inspection. negative: CVA tenderness (R), CVA tenderness (L ) Skin: positive: Color nml, No rash, Warm, Dry. negative: Cyanosis, Diaphoresis , Pallor Extremities: positive: Non-tender, Full ROM, Nml appearance. negative: Calf tenderness, Joint swelling, Balwinder's sign/cords Neurologic/Psychiatric: positive: Oriented x3, Motor nml, Sensation nml, Mood/ affect nml, Weakness. negative: Sensory loss, Facial droop, Slurred/abnml speech, Depressed mood/affect - Lab Results Fish Bones: 02/18/17 05:29 02/18/17 05:29 Other Labs: Lab Results x24hrs 02/18/17 02/18/17 02/18/17 Range/Units 07:53 05:29 05:29 WBC 5.1 (4.8-10.8) x10^3/uL RBC 3.14 L (4.70-6.10) 10^6/uL Hgb 9.7 L (14.0-18.0) g/dL Hct 29.7 L (42.0-52.0) % MCV 94.6 H (80.0-94.0) fL MCH 30.8 (27.0-31.0) pg MCHC 32.6 (32.0-36.0) g/dL RDW 14.7 (12.0-15.0) % Plt Count 101 L (130-450) 10^3/uL MPV 7.9 (7.4-11.4) fL Neut # 3.6 (1.5-6.6) 10^3/uL Lymph # 0.5 L (1.5-3.5) 10^3/uL [place] # 0.7 (0.0-1.0) 10^3/uL Eos # 0.3 (0.0-0.7) 10^3/uL Baso # 0.0 (0.0-0.1) 10^3/uL Absolute Nucleated RBC 0.00 x10^3/uL Nucleated RBC % 0.0 /100WBC Sodium 137 (135-145) mmol/L Potassium 4.3 (3.5-5.0) mmol/L Chloride 101 (101-111) mmol/L Carbon Dioxide 29 (21-32) mmol/L Anion Gap 7.0 (6-13) BUN 81 H* (6-20) mg/dL Creatinine 1.9 H (0.6-1.2) mg/dL Estimated GFR (MDRD) 34 L (>89) Glucose 148 H (70-100) mg/dL POC Whole Bld Glucose 159 H (70 - 100) mg/dL Calcium 8.9 (8.5-10.3) mg/dL Total Bilirubin 0.6 (0.2-1.0) mg/dL AST 11 (10-42) IU/L ALT 10 (10-60) IU/L Alkaline Phosphatase 51 (42-121) IU/L Total Protein 6.1 L (6.7-8.2) g/dL Albumin 2.3 L (3.2-5.5) g/dL Globulin 3.8 (2.1-4.2) g/dL Albumin/Globulin Ratio 0.6 L (1.0-2.2) 02/17/17 02/17/17 02/17/17 Range/Units 20:58 16:37 12:05 WBC (4.8-10.8) x10^3/uL RBC (4.70-6.10) 10^6/uL Hgb (14.0-18.0) g/dL Hct (42.0-52.0) % MCV (80.0-94.0) fL MCH (27.0-31.0) pg MCHC (32.0-36.0) g/dL RDW (12.0-15.0) % Plt Count (130-450) 10^3/uL MPV (7.4-11.4) fL Neut # (1.5-6.6) 10^3/uL Lymph # (1.5-3.5) 10^3/uL [place] # (0.0-1.0) 10^3/uL Eos # (0.0-0.7) 10^3/uL Baso # (0.0-0.1) 10^3/uL Absolute Nucleated RBC x10^3/uL Nucleated RBC % /100WBC Sodium (135-145) mmol/L Potassium (3.5-5.0) mmol/L Chloride (101-111) mmol/L Carbon Dioxide (21-32) mmol/L Anion Gap (6-13) BUN (6-20) mg/dL Creatinine (0.6-1.2) mg/dL Estimated GFR (MDRD) (>89) Glucose (70-100) mg/dL POC Whole Bld Glucose 211 H 150 H 232 H (70 - 100) mg/dL Calcium (8.5-10.3) mg/dL Total Bilirubin (0.2-1.0) mg/dL AST (10-42) IU/L ALT (10-60) IU/L Alkaline Phosphatase (42-121) IU/L Total Protein (6.7-8.2) g/dL Albumin (3.2-5.5) g/dL Globulin (2.1-4.2) g/dL Albumin/Globulin Ratio (1.0-2.2) Assessment/Plan - Problem List (1) Aspiration pneumonia Impression: Conclusion/Plan: Pt' SO2 is 93% with 2 liter O2 NC, remains stable Since pt does not have any issue with food, will consult ST as needed continue antibiotics follow final blood and sputum culture pt usually use 2 liter at home. Pt's SO2 reach to 98% at 2 liter, it is very good SO2 continue antibiotics preliminary blood culture negative continue to monitor pt tele, vital pt report he feel better for breathing. pt has O2 at home. Now pt's SO2 is 95% with 3 liter continue antibiotics follow up blood culture and sputum culture pt's son report he had a choke and extensive cough and aspiration. Then he was diagnosis of pneumonia but no better after treated with PO antibiotics Cefepim blood and sputum culture, will follow up (2) Atrial fibrillation Conclusion/Plan: pt's HR is well control continue current regime tele, vital monitor stable, continue treatment HR is good controlled. continue current treatment tele and vital monitor pt's daughter in law report pt has been Afib without anticoagulation due to risk of fall than the benefit. pt's HR is good control continue home meds for HR control tele, vital monitor (3) Congestive heart failure Conclusion/Plan: remain stable, continue current treatment stable, continue current treatment tele, vital monitor stable, BNP at pt's baseline, CXR does reveal effusion continue Lasix as home meds daily Lab, vital monitor (4) DM2 (diabetes mellitus, type 2) Conclusion/Plan: glucose is good controlled continue current insulin regime slide scale glucose has high adjust insulin from mild to moderate insulin dosage hypoglycemia protocol Glucose is well controlled today, resume of home Lantus Slide scale, ACHS, hypoglycemia check A1C (5) HTN (hypertension) Conclusion/Plan: stable, resume of home BP meds vital, tele monitor (6) Renal insufficiency Conclusion/Plan: remain stable avoid nephrotoxic agent continue daily lab monitor stable, chronic condition hydration and avoid nephrotoxic agent daily lab, vital monitor (7) Osteoarthritis Conclusion/Plan: chronic condition, pain control, resume home meds (8) Chronic pain continue to home pain meds: Morphin, and Oxycode (9) effusion at right knee orthopedics was consulted. pt had effusion drainage by orthopedics. Lidocaine patch was ordered. will follow up pt still complain of some pain at the knee. Pt may have steroid injection on the knee by orthopedics preliminary data reveals negative bacterial growth. continue pain control and support (10) Advance care plan with palliative care pt and his family request palliative care. palliative care is consulted, and will follow up (11) code status pt request code status from full code status to DNR (2) Atrial fibrillation Qualifiers: Atrial fibrillation type: persistent Qualified Code(s): I48.1 - Persistent atrial fibrillation (3) Congestive heart failure Qualifiers: Congestive heart failure type: unspecified congestive heart failure type Congestive heart failure chronicity: chronic Qualified Code(s): I50.9 - Heart failure, unspecified
[2017-02-18] MEDS: INSULIN ASPART 300 UNIT/3 ML PEN SUBQ SCH ×4 (10:21→21:19)
[2017-02-18] MEDS: INSULIN GLARGINE 300 UNIT/3 ML PEN SUBQ SCH (10:24)
[2017-02-18] MEDS: HEPARIN 5,000 UNIT/ML VIAL SUBQ SCH ×2 (10:25→21:19)
[2017-02-18] MEDS: FUROSEMIDE 40 MG TABLET PO SCH (10:35)
[2017-02-18] MEDS: CARVEDILOL 12.5 MG TABLET PO SCH ×2 (10:35→21:20)
[2017-02-18] MEDS: hydrALAZINE 25 MG TABLET PO SCH ×2 (10:39→21:20)
[2017-02-18] MEDS: MORPHINE ER 15 MG TABLET PO SCH ×2 (10:39→20:54)
[2017-02-18] MEDS: TAMSULOSIN 0.4 MG CAPSULE PO SCH ×2 (10:41→20:54)
[2017-02-18] MEDS: SENNA 8.6 MG TABLET PO SCH ×2 (10:41→20:54)
[2017-02-18] MEDS: DOCUSATE SODIUM 100 MG CAPSULE PO SCH ×2 (10:43→20:54)
[2017-02-18] MEDS: PANTOPRAZOLE 40 MG TABLET PO SCH ×2 (10:43→20:54)
[2017-02-18] MEDS: FOLIC ACID 1 MG TABLET PO SCH (10:43)
[2017-02-18] MEDS: FERROUS GLUCONATE 324 MG TABLET PO SCH (10:45)
[2017-02-18] MEDS: MINERAL OIL/HYDROPHIL PETROLAT 454 GM JAR TOP SCH ×2 (10:48→21:23)
[2017-02-18] MEDS: POLYETHYLENE GLYCOL 3350 17 GM PACKET PO SCH (10:52)
[2017-02-18] MEDS ORDERED: BETAMETHASONE 30 MG/5 ML VIAL IM ONE (11:20)
--- NOTE | 2017-02-18 11:30 | PROVIDER PROGRESS NOTE ---
Subjective - Prog Note Date Prog Note Date: 02/18/17 Prog Note Time: 11:26 - Subjective Pt reports feeling: Improved (Less knee pain today) Objective - Vital Signs/Intake & Output Vital Signs: Vital Signs x48h Temp Pulse Resp BP BP Pulse Ox 02/18/17 10:31 63 121/57 L 02/18/17 08:39 36.7 C 60 17 109/53 L 92 02/18/17 06:23 36.6 C 62 22 104/51 L 92 Intake & Output: Intake & Output 02/15/17 02/16/17 02/17/17 02/18/17 23:59 23:59 23:59 23:59 Intake Total 500 2380 1620 200 Output Total 150 Balance 500 2380 1470 200 - Lab Results Fish Bones: 02/18/17 05:29 02/18/17 05:29 Other Labs: Lab Results x24hrs 02/18/17 02/18/17 02/18/17 Range/Units 07:53 05:29 05:29 WBC 5.1 (4.8-10.8) x10^3/uL RBC 3.14 L (4.70-6.10) 10^6/uL Hgb 9.7 L (14.0-18.0) g/dL Hct 29.7 L (42.0-52.0) % MCV 94.6 H (80.0-94.0) fL MCH 30.8 (27.0-31.0) pg MCHC 32.6 (32.0-36.0) g/dL RDW 14.7 (12.0-15.0) % Plt Count 101 L (130-450) 10^3/uL MPV 7.9 (7.4-11.4) fL Neut # 3.6 (1.5-6.6) 10^3/uL Lymph # 0.5 L (1.5-3.5) 10^3/uL [place] # 0.7 (0.0-1.0) 10^3/uL Eos # 0.3 (0.0-0.7) 10^3/uL Baso # 0.0 (0.0-0.1) 10^3/uL Absolute Nucleated RBC 0.00 x10^3/uL Nucleated RBC % 0.0 /100WBC Sodium 137 (135-145) mmol/L Potassium 4.3 (3.5-5.0) mmol/L Chloride 101 (101-111) mmol/L Carbon Dioxide 29 (21-32) mmol/L Anion Gap 7.0 (6-13) BUN 81 H* (6-20) mg/dL Creatinine 1.9 H (0.6-1.2) mg/dL Estimated GFR (MDRD) 34 L (>89) Glucose 148 H (70-100) mg/dL POC Whole Bld Glucose 159 H (70 - 100) mg/dL Calcium 8.9 (8.5-10.3) mg/dL Total Bilirubin 0.6 (0.2-1.0) mg/dL AST 11 (10-42) IU/L ALT 10 (10-60) IU/L Alkaline Phosphatase 51 (42-121) IU/L Total Protein 6.1 L (6.7-8.2) g/dL Albumin 2.3 L (3.2-5.5) g/dL Globulin 3.8 (2.1-4.2) g/dL Albumin/Globulin Ratio 0.6 L (1.0-2.2) 02/17/17 02/17/17 02/17/17 Range/Units 20:58 16:37 12:05 WBC (4.8-10.8) x10^3/uL RBC (4.70-6.10) 10^6/uL Hgb (14.0-18.0) g/dL Hct (42.0-52.0) % MCV (80.0-94.0) fL MCH (27.0-31.0) pg MCHC (32.0-36.0) g/dL RDW (12.0-15.0) % Plt Count (130-450) 10^3/uL MPV (7.4-11.4) fL Neut # (1.5-6.6) 10^3/uL Lymph # (1.5-3.5) 10^3/uL [place] # (0.0-1.0) 10^3/uL Eos # (0.0-0.7) 10^3/uL Baso # (0.0-0.1) 10^3/uL Absolute Nucleated RBC x10^3/uL Nucleated RBC % /100WBC Sodium (135-145) mmol/L Potassium (3.5-5.0) mmol/L Chloride (101-111) mmol/L Carbon Dioxide (21-32) mmol/L Anion Gap (6-13) BUN (6-20) mg/dL Creatinine (0.6-1.2) mg/dL Estimated GFR (MDRD) (>89) Glucose (70-100) mg/dL POC Whole Bld Glucose 211 H 150 H 232 H (70 - 100) mg/dL Calcium (8.5-10.3) mg/dL Total Bilirubin (0.2-1.0) mg/dL AST (10-42) IU/L ALT (10-60) IU/L Alkaline Phosphatase (42-121) IU/L Total Protein (6.7-8.2) g/dL Albumin (3.2-5.5) g/dL Globulin (2.1-4.2) g/dL Albumin/Globulin Ratio (1.0-2.2) - Other Results/Comments Other Results/Comments: EXAM: Right knee: 1+ effusion. Less tender Better knee motion with less pain. Ligaments: stable N/V ok distally Assessment/Plan - Problem List (1) Knee effusion, right Impression: Less inflamed toady. Cultures negative for growth x 2 days PLAN: discussed with patient and his familyu pro/con of intra-articular steriod injection to right knee. Is aware of potential complications and the likelihood of temporary pain relief. Wish to proceed. Injection done. Patient tolerated procedure well. Actrivities as tolerated; WQBAT on right . Follow up as needed.
[2017-02-18] MEDS ORDERED: SODIUM CHLORIDE 0.9% EPI SCH (12:00)
[2017-02-18] MEDS ORDERED: BUPIVACAINE 0.5% EPI SCH (12:00)
[2017-02-18] MEDS ORDERED: BUPIVACAINE 0.5% PF 10 ML VIAL IU ONE (12:00)
[2017-02-18] MEDS: MIN OIL/DIMETHICON/COCONUT OIL 92 GM TUBE TOP PRN ×2 (12:24→20:55)
--- NOTE | 2017-02-18 19:25 | CONSULTATION NOTE ---
Palliative Care Consultation - Referral Referring Provider: Umberto Phelps Time of Visit: 11:30-12:10 PM; [id number] Referral setting: Hospitalized patient Referral Reason: Goals of Care/Acute on Chronic Pain - Information Sources Records reviewed: RN notes reviewed, Previous records reviewed History/Review of Systems obtained from: Patient, Family (DIL Sepideh/son Rodrigo) Exam limitations: Clinical condition (patient very anxious and distressed first meeting; calm and cooperative with second follow up visit) - History of Present Illness Brief History of Present Illness: This is an 86-year-old gentleman who was admitted to [facility] on 2016. It had increased respiratory symptoms for 2-3 weeks, concerned about possible aspiration. He was seen by his PCP and found to have a positive chest x-ray and treated for left lower lobe pneumonia with azithromycin. Unfortunately continued to have increased shortness of breath increased respiratory symptoms and was admitted to the ED for failed out patient treatment. He does of note have a history of esophageal stenosis that has required recurrent dilatation, so he is certainly at high risk for aspiration pneumonia as well. Of concern is patient's decreased functional status, this is attributed both to his acute illness as well as increased right knee pain. He has been seeing Dr. he had will be receiving a injection for cortisone to see if can mitigate some of his pain. He did have an effusion on admit as well. Patient has a long and complex history with multiple comorbidities including chronic kidney stage III insulin-dependent type 2 diabetes congestive heart failure, atrial fib not on anticoagulation, hypertension, gastritis esophageal reflux disease, osteoarthritis, lumbar spinal stenosis resulting in chronic pain syndrome, iron deficiency anemia, BPH, chronic constipation secondary to opioid use, and a history of ascending aortic aneurysm. I did find the patient somewhat distressed, he had to understanding that he was imminently dying this a.m., his [id number] Sepideh is at the bedside, has convinced him elsewise. Patient lives with Sepideh and his son Rodrigo, they had moved in with him after his 's a little over 3-1/2 years ago secondary to pancreatic cancer. Patient does perceive his quality of life is acceptable and enjoys visiting with his family. He is living in the home that he had built, with a beautiful view of the [employer] passage. Patient does have some insight that he does have serious illness, but has been fluctuating as far as acceptance as well as willingness to discuss end-of-life issues. He also has long-term chronic pain and he attributes this to the beginning that he received in the [employer], he reports he was able to tolerate it for long period of time until about the last 10 years. He was on time release OxyContin until he was no longer affordable, has been on MS Contin 15 mg twice daily with oxycodone 15 mg 3 times daily. Unclear exactly how they have arrived to this pain regimen, but certainly could be revisited.For patient to be able to return home, patient would need to be able to pivot transfer or sit to stand for managing toileting. Currently patient has been bedbound. Patient's goal would be to be able to return to independent toileting and back to his home setting. Medical/Surgical History - Past Medical History Cardiovascular: reports: Congestive heart failure, Hypertension, Atrial fibrillation Respiratory: reports: Pneumonia Neuro: reports: Other (cognitive deficits with STM issues) Endocrine/Autoimmune: reports: Type 2 diabetes GI: reports: GERD, Other (esophageal strictures needing dilitation; MD at ) : reports: Incontinence, Renal insuffiency HEENT: reports: Chronic hearing loss Psych: reports: Depression, Anxiety Musculoskeletal: reports: Osteoarthritis, Chronic back pain Derm: reports: None MRSA Hx?: No - Past Surgical History Ortho: reports: Knee replacement HEENT: reports: Tonsil/Adenoidectomy - Substance History Use: Uses substance without health or social issues: NONE Social History - Living Situation Living arrangement: At home Living Situation: With family Support System: Patient was for almost 61 years, he is obviously still actively grieving. Her name was group B. He still misses her greatly, he does have mixed feelings about rejoining her. Reports they do have a common baldemar and he does have believes. But has not been at protestant or acted on those for several years. At the time of her , he has been cared for by his [id number] and son. They have moved in to his home to care for him as it was more set up to manage him in his chronic illnesses. His son Rodrigo is retired and is been the primary caregiver. He does have a [id number] Sepideh he is also been a main part of the caregiving team she is a nurse at the [employer]. Family History - Family History Family History: Mother: (unknown), Father: Medications/Allergies - Medications Active Medication List: Active Medications Acetaminophen (Tylenol) 650 mg PO Q4HR PRN PRN Reason: Pain 1 to 4 Last Admin: 02/15/17 15:13 Dose: 650 mg Amitriptyline HCl (Elavil) 10 mg PO QPM [facility] Last Admin: 02/17/17 19:32 Dose: 10 mg Atorvastatin Calcium (Lipitor) 10 mg PO QPM [facility] Last Admin: 02/17/17 19:02 Dose: 10 mg Carvedilol (Coreg) 25 mg PO BID [facility] Last Admin: 02/18/17 10:35 Dose: 25 mg Docusate Sodium (Colace 100mg Capsule) 100 mg PO BID [facility] Last Admin: 02/18/17 10:43 Dose: 100 mg Emollient Ointment (Hydrophor) 1 applic TOP BID [facility] Last Admin: 02/18/17 10:48 Dose: 1 applic Ferrous Gluconate (Fergon) 324 mg PO DAILY [facility] Last Admin: 02/18/17 10:45 Dose: 324 mg Folic Acid () 1 mg PO DAILY [facility] Last Admin: 02/18/17 10:43 Dose: 1 mg Furosemide (Lasix) 80 mg PO DAILY [facility] Last Admin: 02/18/17 10:35 Dose: 80 mg Heparin Sodium (Porcine) () 5,000 unit SUBQ BID [facility] Last Admin: 02/18/17 10:25 Dose: 5,000 unit Hydralazine HCl (Apresoline) 50 mg PO BID [facility] Last Admin: 02/18/17 10:39 Dose: 50 mg Cefepime HCl 1 gm/ Sodium (Chloride) 100 mls @ 200 mls/hr IV TID [facility] Last Infusion: 02/18/17 16:00 Dose: Infused Insulin Aspart (Novolog) 2 - 10 unit SUBQ 0800,1200,1700,2100 [facility] PRN Reason: Protocol Last Admin: 02/18/17 18:46 Dose: 6 unit Insulin Glargine (Lantus Solostar) 10 unit SUBQ QDBREAKFAST [facility] Last Admin: 02/18/17 10:24 Dose: 10 unit Lidocaine (Lidoderm Patch) 1 patch TOP DAILY PRN PRN Reason: PAIN Mineral Oil (Cavilon) 1 applic TOP PRN PRN PRN Reason: Skin Care Last Admin: 02/18/17 12:24 Dose: 1 applic Morphine Sulfate () 15 mg PO BID [facility] Last Admin: 02/18/17 10:39 Dose: 15 mg Morphine Sulfate (Morphine) 2 mg IVP Q2H PRN PRN Reason: PAIN Last Admin: 02/17/17 04:28 Dose: 2 mg Multi-Ingredient Ointment (Zinc Oxide) 0 applic TOP PRN PRN PRN Reason: Skin Care Ondansetron HCl (Zofran Inj) 4 mg IVP Q6HR PRN PRN Reason: Nausea / Vomiting Oxycodone HCl (Roxicodone) 15 mg PO TID PRN PRN Reason: pain Last Admin: 02/18/17 05:37 Dose: 15 mg Pantoprazole Sodium (Protonix) 40 mg PO BID [facility] Last Admin: 02/18/17 10:43 Dose: 40 mg Polyethylene Glycol (Miralax) 17 gm PO DAILY [facility] Last Admin: 02/18/17 10:52 Dose: 17 gm Senna (Senokot) 17.2 mg PO BID [facility] Last Admin: 02/18/17 10:41 Dose: 17.2 mg Sodium Chloride (Normal Saline Flush 0.9%) 10 ml IVP PRN PRN PRN Reason: NEEDED PER PROVIDER ORDERS Last Admin: 02/18/17 15:54 Dose: 10 ml Sodium Chloride (Normal Saline Flush 0.9%) 10 ml IVP Q8HR [facility] Last Admin: 02/18/17 14:17 Dose: 10 ml Tamsulosin HCl (Flomax) 0.4 mg PO BID [facility] Last Admin: 02/18/17 10:41 Dose: 0.4 mg Vitamin A/Vitamin D (Vitamin A & D Ointment) 1 applic TOP PRN PRN PRN Reason: Skin Care Last Admin: 02/17/17 07:51 Dose: 1 applic Carvedilol 25 mg PO BID 01/23/13 Ferrous Gluconate 324 mg PO DAILY 01/23/13 Folic Acid 1 mg PO DAILY 01/23/13 Omeprazole [PriLOSEC] 20 mg PO BID 01/23/13 Simvastatin 20 mg PO HS 01/23/13 hydrALAZINE [Apresoline] 50 mg PO BID 01/23/13 oxyCODONE [Roxicodone] 15 mg PO TID PRN 01/23/13 Docusate Sodium 100Mg Capsule [Colace 100Mg Capsule] 100 mg PO BID 03/20/13 Polyethylene Glycol 3350 [Miralax] 8.5 - 17 gm PO DAILY PRN 03/20/13 Prazosin [Minipress] 5 mg PO BID 03/20/13 Senna [Senokot] 17.2 mg PO BID 03/20/13 Insulin Glargine,Hum.rec.anlog [Lantus] 10 units SUBQ QDBREAKFAST 05/30/13 Tamsulosin [Flomax] 0.4 mg PO BID 11/29/14 Furosemide 80 mg PO DAILY 11/30/14 Amitriptyline [Elavil] 10 mg PO 2100 02/15/17 Azithromycin [Zithromax Tri-Jan] 500 mg PO DAILY 02/15/17 Morphine Sulfate [Ms Contin] 15 mg PO BID 02/15/17 Zolpidem [Ambien] 5 mg PO HS PRN 02/15/17 - Allergies Allergies/Adverse Reactions: Allergies Allergy/AdvReac Type Severity Reaction Status Date / Time Penicillins Allergy Mild Rash Verified 02/15/17 10:42 Review of Systems - Constitutional Constitutional: reports: Fatigue, Weakness - Eyes Eyes: reports: Vision loss, Corrective lenses - Ears, Nose & Throat Ears, Nose & Throat: reports: Hearing loss, Dry mouth - Cardiovascular Cardiovascular: reports: Exertional dyspnea, Decr. exercise tolerance, Orthopnea. denies: Chest pain - Respiratory Respiratory: reports: Cough, Sputum production (unable to expectorate; swallows) , Orthopnea, SOB at rest, SOB with exertion - Gastrointestinal Gastrointestinal: reports: Reflux/heartburn. denies: Constipation - Genitourinary Genitourinary: reports: Other (currently has panchal catheter) - Musculoskeletal Musculoskeletal: reports: Back pain, Muscle aches, Stiffness, Limited range of motion, Muscle weakness, Joint swelling (right knee) - Integumentary Integumentary: reports: Dryness - Neurological Neurological: reports: General weakness - Psychiatric Psychiatric: reports: Depression, Anxiety - Endocrine Endocrine: reports: Diabetes type 2 - Hematologic/Lymphatic Hematologic/Lymphatic: reports: Anemia, Recurrent infections (admitted with pneumonia) - All Other Systems All Other Systems: reports: Reviewed and negative Physical Exam - Vital Signs Vital Signs: Vital Signs x48h Temp Pulse Resp BP BP Pulse Ox 11/20/17 16:15 36.7 C 73 16 125/72 95 02/18/17 14:14 36.5 C 62 18 125/68 91 L - Physical Exam General Appearance: positive: Moderate distress, Anxious Eyes Bilateral: positive: Normal inspection ENT: positive: No signs of dehydration Neck: positive: Trachea midline Cardiovascular: positive: Regular rate & rhythm, Systolic murmur Respiratory: positive: Rhonchi (improve with coughing), Other (does have significant respiratory effort at rest; denies dyspnea with effort) Abdomen: positive: Non-tender, Soft, Nml bowel sounds, Distended, Obese Skin: positive: Pallor Extremities: positive: No pedal edema, Joint swelling (right knee palpated 1715 without tenderness;) Neurologic/Psychiatric: positive: Oriented x3, Depressed mood/affect Palliative Care - POLST POLST Status: DNR Pain: Pain worsening, Location (patient reports assisted chronic pain in back since in [employer], worsened over the last 10 years; patient unable to identify pain history of use; DIL reports feels pain has been poorly controlled; was on time released oxycontin in past;), Severity Feelings of wellbeing/Perceived Quality of Life: Fair, Acceptable - Palliative Care Discussion: Initially met with Sepideh in law and patient at bedside. Patient still somewhat overwhelmed by thoughts of facing his eminent demise. He had misunderstood the information provided for him, I suspect they are trying to explain palliative care as well as his options regarding transitions. In trying to define what is most important to him, it would be to return home, it is acknowledged by all involved for him to return home he would need to be much more functionally capable. Currently has been bedbound. This is both from acute illness and from his pain. It was discussed at length, the recommendation would be to go to SNFFor rehab. This would also give us some insight if patient was going to continue decline given his multiple comorbidities and serious illness, or if he was going to reach a new normal or plateau. He is to be seen by physical therapy later, with the goal to initiate bed exercises and progress onto focus on functional improvement. I did meet also with Sepideh and Rodrigo. We did discuss in the context of his disease process and acute illness. Patient most likely would not return to previous level of functioning, that this is a slow and downward Journey. If it did seem he was going to take a turn for the worse, they would look at bringing him home for end-of-life care. At this point in time he does not present with a "terminal illness". Are as hospice eligible. He certainly is acutely ill but would need to see how this develops over the next days to weeks. I did get a chance later to meet with the patient in the evening. It was just him and myself, he was able to reflect on life review, his life with Ashley, his children, and things that bring him cleve. He is feeling much more positive and hopeful to be able to return back home. He reports his physical therapy session went well and he felt like his son Rodrigo was pleased. He is somewhat ambivalent and unable to really express what kind of support he wants in the space between now and end-of-life. He talks about wanting to be reunited with Ashley, but is unable to elicit explain we might want for end of life. I did introduce the concept of hospice, he has not had any experience. His will be in the hospital. Agreed at this point in time his goals are to improve his much as possible, he does sound like he is willing to go to the shelter for rehab, and willing to have support along the way. We did discuss my role as palliative care and providing support along with the journey. Particularly as he crossed the continuum of care. Results - Lab Results Lab results reviewed: Yes Fish Bones: 02/18/17 05:29 02/18/17 05:29 Lab and Imaging Results: Lab Results x24hrs 02/18/17 02/18/17 02/18/17 Range/Units 16:44 12:33 07:53 WBC (4.8-10.8) x10^3/uL RBC (4.70-6.10) 10^6/uL Hgb (14.0-18.0) g/dL Hct (42.0-52.0) % MCV (80.0-94.0) fL MCH (27.0-31.0) pg MCHC (32.0-36.0) g/dL RDW (12.0-15.0) % Plt Count (130-450) 10^3/uL MPV (7.4-11.4) fL Neut # (1.5-6.6) 10^3/uL Lymph # (1.5-3.5) 10^3/uL [place] # (0.0-1.0) 10^3/uL Eos # (0.0-0.7) 10^3/uL Baso # (0.0-0.1) 10^3/uL Absolute Nucleated RBC x10^3/uL Nucleated RBC % /100WBC Sodium (135-145) mmol/L Potassium (3.5-5.0) mmol/L Chloride (101-111) mmol/L Carbon Dioxide (21-32) mmol/L Anion Gap (6-13) BUN (6-20) mg/dL Creatinine (0.6-1.2) mg/dL Estimated GFR (MDRD) (>89) Glucose (70-100) mg/dL POC Whole Bld Glucose 231 H 178 H 159 H (70 - 100) mg/dL Calcium (8.5-10.3) mg/dL Total Bilirubin (0.2-1.0) mg/dL AST (10-42) IU/L ALT (10-60) IU/L Alkaline Phosphatase (42-121) IU/L Total Protein (6.7-8.2) g/dL Albumin (3.2-5.5) g/dL Globulin (2.1-4.2) g/dL Albumin/Globulin Ratio (1.0-2.2) 02/18/17 02/18/17 02/17/17 Range/Units 05:29 05:29 20:58 WBC 5.1 (4.8-10.8) x10^3/uL RBC 3.14 L (4.70-6.10) 10^6/uL Hgb 9.7 L (14.0-18.0) g/dL Hct 29.7 L (42.0-52.0) % MCV 94.6 H (80.0-94.0) fL MCH 30.8 (27.0-31.0) pg MCHC 32.6 (32.0-36.0) g/dL RDW 14.7 (12.0-15.0) % Plt Count 101 L (130-450) 10^3/uL MPV 7.9 (7.4-11.4) fL Neut # 3.6 (1.5-6.6) 10^3/uL Lymph # 0.5 L (1.5-3.5) 10^3/uL [place] # 0.7 (0.0-1.0) 10^3/uL Eos # 0.3 (0.0-0.7) 10^3/uL Baso # 0.0 (0.0-0.1) 10^3/uL Absolute Nucleated RBC 0.00 x10^3/uL Nucleated RBC % 0.0 /100WBC Sodium 137 (135-145) mmol/L Potassium 4.3 (3.5-5.0) mmol/L Chloride 101 (101-111) mmol/L Carbon Dioxide 29 (21-32) mmol/L Anion Gap 7.0 (6-13) BUN 81 H* (6-20) mg/dL Creatinine 1.9 H (0.6-1.2) mg/dL Estimated GFR (MDRD) 34 L (>89) Glucose 148 H (70-100) mg/dL POC Whole Bld Glucose 211 H (70 - 100) mg/dL Calcium 8.9 (8.5-10.3) mg/dL Total Bilirubin 0.6 (0.2-1.0) mg/dL AST 11 (10-42) IU/L ALT 10 (10-60) IU/L Alkaline Phosphatase 51 (42-121) IU/L Total Protein 6.1 L (6.7-8.2) g/dL Albumin 2.3 L (3.2-5.5) g/dL Globulin 3.8 (2.1-4.2) g/dL Albumin/Globulin Ratio 0.6 L (1.0-2.2) Impression and Recommendations - Palliative Care Impression: This is an 86-year-old gentleman who presents with pneumonia in the setting of multiple comorbidities. He has experienced ongoing cognitive decline, and more acutely functional decline. He presents with fairly high symptom burden with acute on chronic pain, fatigue multifactorial in origin, dyspnea, anorexia, and anxiety. Patient at this point in time stated goals are to return home, patient needs to be able to transfer and toilet to ease burden on caregiving, this would be best met to further support through rehab at a shelter stay. Recommendations/Counseling Done: 1. Acute on chronic pain. Patient has received cortisone injection in his right knee, on exam later in the day does appear without tenderness to palpation patient was able to move with minimal discomfort. He does have chronic back pain though at time of visit was not in any kind of distress and rated his pain at a 4 out of 10. Patient's baseline pain medication is MS Contin 15 mg twice daily, with oxycodone 15 mg 3 times daily. Morphine is usually not recommended in patients with more severe kidney disease, because of the metabolites. He is on a low dose though. Is also unclear how he is using his oxycodone for breakthrough pain at 15 mg dosing. Will see how patient responds to the knee injection and where his underlying pain level stablized . I suspect there is a better regimen that can be revisited at that time, will get palliative care referral for outpatient and/or SNF. 2. Fatigue. This is multi-a factorial in origin patient does have underlying anemia of chronic disease, does present with acute pneumonia, and has now been very sedentary over the last few days with his acute illness. He will be seen PT here in the hospital, and would recommend transition not over to rehab therapies at the shelter. 3. Anxiety. Patient does present with some ambivalence particularly around discussing end-of-life issues, does seem to be quite fearful and with little insight into the seriousness of his illness. 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 4. Advanced care planning. Patient currently do not attempt resuscitation in response to conversation this morning. Patient does not have a [facility] ST. Will try and revisit before discharge to shelter. Patient does have multiple comorbidities and is certainly at risk for further decline. This will have been his third hospitalization in the last year for serious diagnoses. On the Lon index, which is a prognostic tool for hospitalized adults age 70 and older the looks at all, went because 1 year mortality. The patient's total score is a 5 which puts him at a 34% with a risk of 1 year mortality. Noting risk calculators cannot predict the future for any one individual. The risk calculator is can give an estimate of how many people with similar risk factors will live and they cannot identify who will live and he will . Time Spent: 70 minutes spent with greater than 50% of this done in counseling regarding anticipatory guidance and advanced care planning, rapport building, and coordination of care with clinical staff.
[2017-02-18] MEDS: ATORVASTATIN 10 MG TABLET PO SCH (20:53)
[2017-02-18] MEDS: AMITRIPTYLINE 10 MG TABLET PO SCH (20:53)
[2017-02-19 05:19] LABS: BASOPHILS % (AUTO) 0.1 %; HCT - HEMATOCRIT 30.6 % (42.0-52.0); LYMPHOCYTES # (AUTO) 0.2 10^3/uL (1.5-3.5); LYMPHOCYTES % (AUTO) 3.3 %; MEAN CORPUSCULAR HEMOGLOBIN 30.8 pg (27.0-31.0); MEAN CORPUSCULAR HGB CONC 32.7 g/dL (32.0-36.0); MEAN CORPUSCULAR VOLUME 94.1 fL (80.0-94.0); MEAN PLATELET VOLUME 8.4 fL (7.4-11.4); MONOCYTES # (AUTO) 0.3 10^3/uL (0.0-1.0); MONOCYTES % (AUTO) 4.6 %; NEUTROPHILS # (AUTO) 5.2 10^3/uL (1.5-6.6); NUCLEATED RED BLOOD CELLS AUTO 0.1 /100WBC; RED BLOOD COUNT 3.26 10^6/uL (4.70-6.10); RED CELL DISTRIBUTION WIDTH 14.9 % (12.0-15.0); UNCORRECTED WHITE BLOOD COUNT 5.6 x10^3/uL; WHITE BLOOD COUNT 5.6 x10^3/uL (4.8-10.8)
[2017-02-19 05:37] LABS: ALBUMIN/GLOBULIN RATIO 0.5 (1.0-2.2); BILIRUBIN,TOTAL 0.2 mg/dL (0.2-1.0); CALCIUM 9.2 mg/dL (8.5-10.3); TOTAL PROTEIN 6.8 g/dL (6.7-8.2)
[2017-02-19] MEDS: CEFEPIME 1 GM in SODIUM CHLORIDE 0.9% MINIBAG 100 ML IV SCH (05:48)
[2017-02-19] MEDS: SODIUM CHLORIDE FLUSH 0.9% 10 ML SYRINGE IVP SCH ×2 (06:18→14:36)
[2017-02-19] MEDS: ACETAMINOPHEN 325 MG TABLET PO PRN (06:18)
[2017-02-19] MEDS: INSULIN ASPART 300 UNIT/3 ML PEN SUBQ SCH ×2 (08:10→12:46)
[2017-02-19] MEDS: INSULIN GLARGINE 300 UNIT/3 ML PEN SUBQ SCH (08:10)
[2017-02-19] MEDS: FOLIC ACID 1 MG TABLET PO SCH (09:12)
[2017-02-19] MEDS: CARVEDILOL 12.5 MG TABLET PO SCH (09:12)
[2017-02-19] MEDS: FERROUS GLUCONATE 324 MG TABLET PO SCH (09:12)
[2017-02-19] MEDS: DOCUSATE SODIUM 100 MG CAPSULE PO SCH (09:12)
[2017-02-19] MEDS: hydrALAZINE 25 MG TABLET PO SCH (09:13)
[2017-02-19] MEDS: PANTOPRAZOLE 40 MG TABLET PO SCH (09:13)
[2017-02-19] MEDS: SENNA 8.6 MG TABLET PO SCH (09:13)
[2017-02-19] MEDS: POLYETHYLENE GLYCOL 3350 17 GM PACKET PO SCH (09:13)
[2017-02-19] MEDS: MORPHINE ER 15 MG TABLET PO SCH (09:14)
[2017-02-19] MEDS: HEPARIN 5,000 UNIT/ML VIAL SUBQ SCH (09:15)
[2017-02-19] MEDS: TAMSULOSIN 0.4 MG CAPSULE PO SCH (09:16)
[2017-02-19] MEDS: FUROSEMIDE 40 MG TABLET PO SCH (09:16)
[2017-02-19] MEDS ORDERED: oxyCODONE 5 MG TABLET PO PRN (10:57)
[2017-02-19] MEDS ORDERED: fentaNYL 12 MCG PATCH TOP SCH (11:00)
--- NOTE | 2017-02-19 11:09 | Discharge Plan ---
Discharge Plan Disposition: 03 DC/Xfer Condition: Good Prescriptions: fentaNYL 12 MCG PATCH [Duragesic 12mcg patch] 1 patch TOP Q3D #14 patch Lidocaine Patch 5% [Lidoderm Patch] 1 patch TOP DAILY PRN #14 patch PRN Reason: Pain oxyCODONE [Roxicodone] 5 - 10 mg PO TID PRN #30 tablet PRN Reason: pain Diet: Cardiac Activity Restrictions: Activity as Tolerated Shower Restrictions: No Driving Restrictions: No Assistance Devices: Walker Weight Bearing: Full Weight No Smoking: If you smoke, Please STOP! Call for help.
--- NOTE | 2017-02-19 11:11 | DISCHARGE SUMMARY ---
Discharge Summary Admit Date: 02/15/17 Discharge Date: 02/19/17 Discharging Provider: LINDA Newton Primary Care Provider: Poli Ramires Code Status: Attempt Resuscitation Condition at Discharge: Good Discharge Disposition: 03 SNF DC/Xfer Discharge Facility Name: [facility] - DIAGNOSES Admission Diagnoses: Pneumonia, unspecified organism (J18.9) Weakness (R53.1) Heart failure, unspecified (I50.9) Type 2 diabetes mellitus without complications (E11.9) Unspecified atrial fibrillation (I48.91) Essential (primary) hypertension (I10) Discharge Diagnoses with Status of Each Condition: (1) Aspiration pneumonia Pt' SO2 is 93% with 2 liter O2 NC, remains stable. Patient is not noted to become short of breath or exhibit episodes of coughing after eating, Speech Therapy as needed. Plan: Continue antibiotics. Awaiting final blood and sputum cultures- Enterococcus faecalis and sensitive to several antibiotics including vancomycin , levofloxacin, ciprofloxacin or linezolid, although preliminary blood culture results are NGTD. Patient uses chronic home oxygen at 2L. (2) Atrial fibrillation Patient has not been anticoagulated despite a-fib due to frequent falls. Plan: Continue home medications for rate and rhythm control. (3) Congestive heart failure BNP was 346 on admission and is stable. Chest-XRay does reveal effusion. Plan: Continue Lasix as at home. Daily labs and monitor vital signs. (4) DM2 (diabetes mellitus, type 2) HgA1C was 7.2%. Blood sugar remained under good control while in the hospital. Plan: Continue Lantus and SSI. (5) HTN (hypertension) Blood pressure remained stable through hospital stay. Telemetry monitoring and vital signs were monitored during hospital stay. Plan: BP meds were resumed on discharge. (6) Renal insufficiency Patient has a baseline creatinine of 1.8, and it reached a peak of 2.0, then back to 1.8 at the time of discharge. Patient GFR was between 34-36. He was treated with hydration and we avoided nephrotoxic medications. Plan: Daily labs and vital sign monitoring. (7) Osteoarthritis This is noted to be a chronic condition. Plan: Pain control and resume home meds. (8) Chronic pain continue to home pain meds: Morphine, and Oxycodone (9) effusion at right knee orthopedics was consulted. pt had an effusion drainage by orthopedics. Lidocaine patch was ordered. Final report data reveals negative bacterial growth. Plan: continue pain control and support (10) Advance care plan with palliative care pt and his family request palliative care. Plan: palliative care is consulted, and will follow up - HPI History of Present Illness: This is a 86-year-old male with a past medical history significance for CHF, CKD, HTN, Afib without anticoagulation, pneumonia, Dementia, DM2, GERD , incontinence, osteoarthritis, chronic pain, who present ER for evaluation of weakness, cough, pneumonia. Pt's son report pt had a choke with extensive cough and aspiration before he visited his PCP. Pt report three days he went to see his PCP, CXR was done at PCP office. He was found to have pneumonia. Pt was prescribed Azithyomycin. But pt did not feel better. The saturation of O2 was down to 80% per pt's daughter in law state. Pt has O2 taken in the home. Pt report he has lots of cough with yellow sputum. Pt also developed more weakness. he usually can walk with walker but recently he can not sit at the bed side, and sleep the whole day. pt denies fever, chill, night sweating. No chest pain, obvious shortness of breathing, headache, abdominal pain, nausea, vomiting, diarrhea, GI bleeding, dysuria, hemauria, vision changing. lab reveals chronic CKD, lactic acid 0.7, BNP 346. CXR reveals no acute significant finding. - ALLERGIES Allergies/Adverse Reactions: Allergies Allergy/AdvReac Type Severity Reaction Status Date / Time Penicillins Allergy Mild Rash Verified 02/15/17 10:42 - MEDICATIONS Home Medications: Ambulatory Orders Medication Instructions Recorded Confirmed Carvedilol 25 mg PO BID 01/23/13 02/15/17 Docusate Sodium 100Mg Capsule 100 mg PO BID 03/20/13 02/15/17 [Colace 100Mg Capsule] Insulin Glargine,Hum.rec.anlog 10 units SUBQ QDBREAKFAST 05/30/13 02/20/17 [Lantus] Acetaminophen [Tylenol] 650 mg PO Q4HR PRN tablet 02/19/17 Amitriptyline [Elavil] 10 mg PO 2100 #0 02/19/17 02/15/17 Ferrous Gluconate 324 mg PO DAILY #0 02/19/17 02/15/17 Folic Acid 1 mg PO DAILY #0 02/19/17 02/15/17 Furosemide 80 mg PO DAILY #0 02/19/17 02/20/17 Insulin Aspart [NovoLOG] 2 - 10 unit SUBQ 02/19/17 02/20/17 0800,1200,1700,2100 pen Levofloxacin [Levaquin] 500 mg PO DAILY #7 tablet 02/19/17 02/20/17 Lidocaine Patch 5% [Lidoderm Patch] 1 patch TOP DAILY PRN #14 patch 02/19/17 Pantoprazole [Protonix] 40 mg PO BID #30 tablet 02/19/17 02/20/17 Polyethylene Glycol 3350 [Miralax] 17 gm PO DAILY packet 02/19/17 02/20/17 Prazosin [Minipress] 5 mg PO BID #0 02/19/17 02/20/17 Senna [Senokot] 17.2 mg PO BID #0 02/19/17 02/20/17 Simvastatin 20 mg PO HS #0 MDD HOLD 02/19/17 02/20/17 fentaNYL 12 MCG PATCH [Duragesic 1 patch TOP Q3D #14 patch 02/19/17 02/20/17 12mcg patch] Amitriptyline [Elavil] 10 mg PO ACHS 02/20/17 02/20/17 Docusate Sodium 100 mg PO BID 02/20/17 02/20/17 Ferrous Gluconate 324 mg PO DAILY 02/20/17 02/20/17 Tamsulosin [Flomax] 0.4 mg PO DAILY 02/20/17 02/20/17 hydrALAZINE [Apresoline] 50 mg PO DAILY 02/20/17 02/20/17 oxyCODONE [Roxicodone] 5 - 10 mg PO Q6HR PRN 02/20/17 02/20/17 - PHYSICAL EXAM AT DISCHARGE General Appearance: positive: No acute distress, Anxious Eyes Bilateral: positive: Normal inspection ENT: positive: ENT inspection nml, Pharynx nml, Dry mucous membranes Neck: positive: Nml inspection, Thyroid nml, No JVD, Trachea midline Respiratory: positive: Chest non-tender, No respiratory distress, Rhonchi (fine crackles t/o) Cardiovascular: positive: Regular rate & rhythm, No gallop, Systolic murmur Peripheral Pulses: positive: 1+ Abdomen: positive: Non-tender, No organomegaly, Nml bowel sounds, No distention Back: positive: Nml inspection Skin: positive: Color nml, No rash, Warm, Dry, Pallor Extremities: positive: Non-tender, Full ROM, Pedal edema Neurologic/Psychiatric: positive: Disoriented to place, Disoriented to time, Weakness, Sensory loss Reflexes: Bicep (R): 2+, Bicep (L): 2+ - LABS Result Diagrams: 02/19/17 05:07 02/19/17 14:20 - DIAGNOSTIC IMAGING Diagnostic Imaging Results: Final report reviewed - FOLLOW UP Follow Up: As per [facility] - TIME SPENT Time Spent in Discharge (Minutes): 30
[2017-02-19] MEDS: MINERAL OIL/HYDROPHIL PETROLAT 454 GM JAR TOP SCH (11:15)
[2017-02-19 11:36] VITALS: BP 115/55
--- NOTE | 2017-02-19 12:15 | Discharge Plan ---
"Discharge Plan for SNF / CORRECTION - DC Plan and Transition Orders Disposition: 03 SNF DC/Xfer Condition: Good SNF Transition Orders: Admit to: [facility] under [facility] care of Poli Ramires Discharge Diagnosis: Pneumonia Medicare Certification: I certify that Post Hospital usp care is medically necessary on a continuing basis for any of the conditions for which she/he is receiving care during hospitalization. Notify PCP of admission and forward orders to primary provider for signature. Weight on admission and weekly. Call PCP immediately if weight increases by 5 pounds or if patient develops dyspnea, chest pain/tightness or edema. House Bowel Program: Yes If no BM after 2 days, nurse may give M.O.M. 30ml PO PRN and /or ducolax Supp 1 AL and /or KIKE 250mg P.O., and/or senna 1-2 tabs PO. On day 3 nurse may give repeat above order until residents constipation is resolved. Immunizations: Annual Influenza Vaccine: yes (between Nov 30 and June 29.) Unless allergy or already given Two-Step PPD: Yes per [facility] [id number] or appropriate documentation of approved exceptions Treatments & Other Orders: PT/OT/speech Oxygen Orders: yes, 1-2L via nasal cannula to keep oxygen saturation >90%. Lab Tests or X-Rays Orders: Monitor BMP/CBC as per accepting provider. Suggest every 1-2 weeks. Orthopedic Orders: N/A. Medications: PLEASE REFER TO THE DISCHARGE MEDICATION LIST. Insulin Orders? yes Diagnosis: Diabetes Initiate hypo and hyperglycemia protocols for BG <70 and BG >375. May check BG prn for signs/symptoms of dysglycemia. Frequency of BG checks: daily. Basal Insulin: Lantus 20 units inject subq as follows: every HS, scheduled daily. Correction Insulin: - Select the type of insulin below, NOT ordered! Choose: Novolog/Yikklpl682 units /ml insulin inject subq per orders indicate below LOW DOSE MODERATE DOSE MODERATE/HIGH DOSE HIGH DOSE GB UNITS GB UNITS GB UNITS GB UNITS 61-140 0 UNITS 61-140 0 UNITS 61-140 0 UNITS 61-140 0 UNITS 141-175 1 UNITS 141-175 1 UNITS 141-175 2 UNITS 141-175 3 UNITS 176-225 2 UNITS 176-225 3 UNITS 176-225 4 UNITS 176-225 5 UNITS 226-275 3 UNITS 226-275 5 UNITS 226-275 6 UNITS 226-275 7 UNITS 276-325 4 UNITS 276-325 7 UNITS 276-325 8 UNITS 276-325 9 UNITS 326-375 5 UNITS 326-375 9 UNITS 326-375 10 UNITS 326-375 11 UNITS >375 CONTACT MD >375 CONTACT MD >375 CONTACT MD >375 CONTACT MD Custom Dosing: Choose: None/Novolog/Humalog 100 units/ml Insulin inject subq as follows: GB Units 61-140 Units 141-175 Units 176-225 Units 226-275 Units 276-325 Units 326-375 Units >375 Contact MD Allergies and Adverse Reactions: Allergies Allergy/AdvReac Type Severity Reaction Status Date / Time Penicillins Allergy Mild Rash Verified 02/15/17 10:42 - Medications New Prescriptions: fentaNYL 12 MCG PATCH [Duragesic 12mcg patch] 1 patch TOP Q3D #14 patch Lidocaine Patch 5% [Lidoderm Patch] 1 patch TOP DAILY PRN #14 patch PRN Reason: Pain oxyCODONE [Roxicodone] 5 - 10 mg PO TID PRN #30 tablet PRN Reason: pain - Diet Type: Geriatric Texture: Regular May have monthly special meal: Yes - Therapies | Activity Therapy: Evaluation | Treat if indicated: Speech, PT, OT, Swallowing / ST Rehabilitation Potential: Maximize functional status Activity: Activity as Tolerated Weight Bearing: Full Weight Assistance Devices: Walker"
[2017-02-19] MEDS ORDERED: INSULIN ASPART 300 UNIT/3 ML PEN SUBQ ONE ×2 (12:26→13:55)
[2017-02-19] MEDS ORDERED: INSULIN GLARGINE 300 UNIT/3 ML PEN SUBQ SCH (12:27)
== END 2017-02-19 15:54 | DRG 178 ==
LOC: EDUNIT# → ED 10:24 → MS3 13:30
PROVIDERS: ADMIT Nurse Practitioner Gerontology; ATTEND Nurse Practitioner
PROC: 0S9C3ZX Drainage of Right Knee Joint, Percutaneous Approach, Diagnostic (ICD-10-PCS; principal; 2017-02-16)
PROC: 3E0U33Z Introduction of Anti-inflammatory into Joints, Percutaneous Approach (ICD-10-PCS; 2017-02-18)
DX: J18.9 Pneumonia, unspecified organism (principal); J69.0 Pneumonitis due to inhalation of food and vomit; I11.0 Hypertensive heart disease with heart failure; I13.0 Hypertensive heart and chronic kidney disease with heart failure and stage 1 through stage 4 chronic kidney disease, or unspecified chronic kidney disease; I48.1 Persistent atrial fibrillation; E11.9 Type 2 diabetes mellitus without complications; B95.2 Enterococcus as the cause of diseases classified elsewhere; M25.531 Pain in right wrist; I50.9 Heart failure, unspecified; E11.22 Type 2 diabetes mellitus with diabetic chronic kidney disease; Z96.659 Presence of unspecified artificial knee joint; N18.3 Chronic kidney disease, stage 3 (moderate); M19.90 Unspecified osteoarthritis, unspecified site; M25.461 Effusion, right knee; M25.561 Pain in right knee; F03.90 Unspecified dementia, unspecified severity, without behavioral disturbance, psychotic disturbance, mood disturbance, and anxiety; K21.9 Gastro-esophageal reflux disease without esophagitis; M48.061 Spinal stenosis, lumbar region without neurogenic claudication; G89.4 Chronic pain syndrome; K59.03 Drug induced constipation; T40.2X5D Adverse effect of other opioids, subsequent encounter; N40.1 Benign prostatic hyperplasia with lower urinary tract symptoms; N39.498 Other specified urinary incontinence; D50.9 Iron deficiency anemia, unspecified; F41.9 Anxiety disorder, unspecified; Z51.5 Encounter for palliative care; Z88.0 Allergy status to penicillin; Z79.891 Long term (current) use of opiate analgesic; Z99.81 Dependence on supplemental oxygen; Z91.81 History of falling; Z79.4 Long term (current) use of insulin; Z87.19 Personal history of other diseases of the digestive system; Z74.01 Bed confinement status
CPT/HCPCS: 36415; 71010; 80053; 81001; 81003; 82550; 82947; 83036; 83605; 83690; 83735; 83880; 85025; 85610; 85730; 87040; 87070; 87077; 87086; 87205; 89051; 89060; 93005; 99223; 99284; 99285

== ENCOUNTER 2017-02-19 15:39 | Outpatient (CLI) | payer MEDICARE | END 2017-02-19 15:40 | LOC: EMS 15:39 | PROVIDERS: ATTEND Surgery | DX: J18.9 Pneumonia, unspecified organism (principal) | CPT/HCPCS: A0425; A0428 ==

== ENCOUNTER 2017-02-20 15:00 | Outpatient (CLI) | payer MEDICARE ==
--- NOTE | 2017-02-20 18:10 | CONSULTATION NOTE ---
Palliative Care Follow Up - Referral Referring Provider: Dr. Tito Ramires Time of Visit: [id number] Referral setting: [facility] Facility Referral Reason: Follow up pneumonia/failure to thrive/chronic pain - Information Sources Records reviewed: RN notes reviewed History/Review of Systems obtained from: Patient, Family (son Axel at visit) Exam limitations: Clinical condition (Patient is able to articulate needs, appears easily confused still has very little insight to current condition and is distressed with current transition, unable to really recall last few days.) - History of Present Illness Update Brief HPI Update: This is an 86-year-old gentleman with acute hospital stay at [facility] 02/15 -02/19. Who was diagnosed with pneumonia, exacerbation of his diabetes mellitus type 2, CHF, right knee effusion, and overall generalized weakness. It is assumed that he most likely had aspiration that resulted in pneumonia. He failed outpatient therapy. Through his hospitalization he had functional decline, and now is at SNF for concentration on improving functional status back to baseline. This included being able to ambulate several feet with a walker, and independence in toileting. This is somewhat complicated by his long -term baseline chronic back pain, and now acute on chronic pain for right knee effusion. He did receive a cortizone injection in the right knee with some improvement. He had a rough transition yesterday afternoon to [facility], slept very poorly last night, but has started therapies today. His son Axel, is at bedside, patient does get quite anxious and easily confused. Social History - Living Situation Living arrangement: At home, [facility] (admitted to [facility] yesterday for rehab services) Living Situation: With family Support System: Patient is supported by his son Rodrigo and [id number] Sepideh, who is a nurse. Patient does need to be much more functional to return home this is the goal for his rehab stay. They do recognize he is having both functional and cognitive decline and is more frail, are awaiting to see how much patient improves over the next few weeks to further define long-term plan. Medications/Allergies - Medications Home Medications: Ambulatory Orders Medication Instructions Recorded Confirmed Carvedilol 25 mg PO BID 01/23/13 02/15/17 Docusate Sodium 100Mg Capsule 100 mg PO BID 03/20/13 02/15/17 [Colace 100Mg Capsule] Insulin Glargine,Hum.rec.anlog 10 units SUBQ QDBREAKFAST 05/30/13 02/20/17 [Lantus] Acetaminophen [Tylenol] 650 mg PO Q4HR PRN tablet 02/19/17 Amitriptyline [Elavil] 10 mg PO 2100 #0 02/19/17 02/15/17 Ferrous Gluconate 324 mg PO DAILY #0 02/19/17 02/15/17 Folic Acid 1 mg PO DAILY #0 02/19/17 02/15/17 Furosemide 80 mg PO DAILY #0 02/19/17 02/20/17 Insulin Aspart [NovoLOG] 2 - 10 unit SUBQ 02/19/17 02/20/17 0800,1200,1700,2100 pen Levofloxacin [Levaquin] 500 mg PO DAILY #7 tablet 02/19/17 02/20/17 Lidocaine Patch 5% [Lidoderm Patch] 1 patch TOP DAILY PRN #14 patch 02/19/17 Pantoprazole [Protonix] 40 mg PO BID #30 tablet 02/19/17 02/20/17 Polyethylene Glycol 3350 [Miralax] 17 gm PO DAILY packet 02/19/17 02/20/17 Prazosin [Minipress] 5 mg PO BID #0 02/19/17 02/20/17 Senna [Senokot] 17.2 mg PO BID #0 02/19/17 02/20/17 Simvastatin 20 mg PO HS #0 MDD HOLD 02/19/17 02/20/17 fentaNYL 12 MCG PATCH [Duragesic 1 patch TOP Q3D #14 patch 02/19/17 02/20/17 12mcg patch] Amitriptyline [Elavil] 10 mg PO ACHS 02/20/17 02/20/17 Docusate Sodium 100 mg PO BID 02/20/17 02/20/17 Ferrous Gluconate 324 mg PO DAILY 02/20/17 02/20/17 Tamsulosin [Flomax] 0.4 mg PO DAILY 02/20/17 02/20/17 hydrALAZINE [Apresoline] 50 mg PO DAILY 02/20/17 02/20/17 oxyCODONE [Roxicodone] 5 - 10 mg PO Q6HR PRN 02/20/17 02/20/17 - Allergies Allergies/Adverse Reactions: Allergies Allergy/AdvReac Type Severity Reaction Status Date / Time Penicillins Allergy Mild Rash Verified 02/15/17 10:42 Review of Systems - Constitutional Constitutional: reports: Fatigue, Poor appetite - Eyes Eyes: reports: Corrective lenses - Ears, Nose & Throat Ears, Nose & Throat: reports: Hearing loss - Cardiovascular Cardiovascular: reports: Decr. exercise tolerance - Respiratory Respiratory: reports: Cough, SOB with exertion - Gastrointestinal Gastrointestinal: reports: Constipation (went yesterday; back on bowel program) - Genitourinary Genitourinary: reports: Incontinence (was continent prior to hospitalization) - Musculoskeletal Musculoskeletal: reports: Muscle pain, Back pain, Muscle aches, Limited range of motion, Muscle weakness, Joint swelling (right knee), Transfer issues (very shakey; did with 2 person assist and gait belt to wheelchair) - Integumentary Integumentary: reports: Other (stage II decub coccys) - Neurological Neurological: reports: General weakness, Memory problems - Psychiatric Psychiatric: reports: Depression, Anxiety - Endocrine Endocrine: reports: Diabetes type 2, Intolerance to cold - Hematologic/Lymphatic Hematologic/Lymphatic: reports: Anemia, Recurrent infections - All Other Systems All Other Systems: reports: Reviewed and negative Physical Exam - Vital Signs Temperature: 97.4 C Pulse Rate: 54 Respiratory Rate: 20 O2 Saturation: 95 (2 liters) Blood Pressure: 114/62 - Physical Exam General Appearance: positive: Mild distress, Anxious Eyes Bilateral: positive: Normal inspection, No lid inflammation ENT: positive: No signs of dehydration Neck: positive: No JVD, Trachea midline Cardiovascular: positive: Irregularly irregular Respiratory: positive: Wheezes, Rhonchi Abdomen: positive: Nml bowel sounds, Obese Skin: positive: Pallor, Pressure wound (less than 1 cm slit high coccyx area;) Palliative Care - POLST Patient has POLST: Yes POLST Status: DNR, Limited Interventions Pain: Pain unchanged, Location (back group home injury; currently on fentanyl 12 mcg patch; changed prn dosing to oxycodone 5-10 mg every 6 hours. Patient always describes pain as 12 out of 10.) Tiredness/Fatigue: Moderate (4-6) Drowsiness/Sedation: Mild (1-3) Nausea: None Depression: Moderate (4-6) (not on any antidepressant) Anxiety: Moderate (4-6) Dyspnea: Moderate (4-6), Comment (still has productive cough; newly started on insp. spiremetor and accapula by ST) Anorexia: Moderate (4-6) Sleep: Sleeps poorly (poor night) Constipation: Yes, Opoid induced, Intermittent constipation (on bowel program; had one at hospital day he left but had been several days prior to this) Feelings of wellbeing/Perceived Quality of Life: Poor, Worsening Performance Status: Patient has been mostly bedbound during hospitalization, just started therapies in the last 2 days. Observed transfer to wheelchair, patient is able to bear weight but legs buckling. Continues to complain of baseline pain and back. Does appear to be able to move right leg easier than previous examination. - Palliative Care Discussion: Patient quite perseverative on no sleep last night. Did try to redirect and discuss about goals of care. Agreed long-term goal would be to return back home with increased independence or at least at baseline. They did bring his copy in, which brightened his spirits quite a bit. In discussion with patient appears to have poor insight to his current condition and implications regarding this. Family aware of patient's fragile status, awaiting to see if patient improves or worsens to further define long-term goals of care and support. Impression and Recommendations - Palliative Care Impression: This is an 86-year-old anxious gentleman who has recently transitioned to [facility], for rehab therapies. He has multiple comorbidities that are impacting both his functional and cognitive status. These include but are not limited to recent pneumonia, heart failure, chronic kidney disease stage III, and long- term chronic back pain. Recommendations/Counseling Done: 1. Acute on chronic pain. Patient recently started on fentanyl 12 mcg patch. This is to replace his MS Contin 15 mg twice daily secondary to his kidney status, as well as to simplify management. Did change breakthrough pain medication management oxycodone 5-10 mg to every 6 hours as needed, previously had been 15 mg 3 times daily as needed with increased sedation and sleepiness with higher dose. 2. Stage II decub. Patient on pressure relief mattress, are providing regular incontinence care, order written for M. Cream apply to coccyx twice daily. Also looked at patient participating with incontinence management and possibly using urinal, he has used one in the past. Occupational therapist will work with this to see if a possibility. 3. Depression. Patient not on an antidepressant, does appear quite anxious and easily distressed. Continues to express normal grief reaction regarding to loss of independence, with a significant anxiety overlay. 4. Pneumonia. Patient continues at high risk for aspiration, has significant history of esophageal stenosis without recent dilatation for greater than 2-3 years. Did speak with speech therapy regarding if possible need of swallow eval after patient returns to some level of baseline. Will continue to evaluate. 5. Muscle weakness. Patient with prolonged hospitalization and bedbound status. At baseline was fairly sedentary, this was also impacted by his chronic pain syndrome. Has initiated therapies, will need to encourage and enlist him to meet his goals of returning home if possible. 6.Diabetes. Patient on home Lantus 10 units in a.m. There are conflicting orders and discharge orders set 10 versus 20. Patient does have sliding scale which is not very conducive in [facility] setting, nor for home management. Given though unclear where his baseline will be, agreement was to continue sliding-scale for 1 week and evaluate titration at that point in time. Time Spent: 60 minutes with greater than 50% of this done in counseling coordination of care with clinical staff, clarification of orders, and anticipatory guidance with family.
== END 2017-02-20 15:01 | disposition home or self-care (01) ==
LOC: PC 15:00
PROVIDERS: ATTEND Nurse Practitioner Adult Health
DX: Z51.5 Encounter for palliative care (principal); M54.9 Dorsalgia, unspecified; G89.29 Other chronic pain; L89.152 Pressure ulcer of sacral region, stage 2; F32.9 Major depressive disorder, single episode, unspecified; J18.9 Pneumonia, unspecified organism; M62.81 Muscle weakness (generalized); E11.9 Type 2 diabetes mellitus without complications; Z79.4 Long term (current) use of insulin; Z79.84 Long term (current) use of oral hypoglycemic drugs; I50.9 Heart failure, unspecified; M25.461 Effusion, right knee; K59.03 Drug induced constipation; T40.2X5D Adverse effect of other opioids, subsequent encounter; Z79.891 Long term (current) use of opiate analgesic; R32 Unspecified urinary incontinence; F41.9 Anxiety disorder, unspecified; R06.00 Dyspnea, unspecified; N18.3 Chronic kidney disease, stage 3 (moderate); Z66 Do not resuscitate
CPT/HCPCS: 99310

== ENCOUNTER 2017-02-22 16:05 | Outpatient (CLI) | payer MEDICARE ==
[2017-02-22 17:14] LABS: CALCIUM 9.6 mg/dL (8.5-10.3); CREATININE 1.8 mg/dL (0.6-1.2)
== END 2017-02-22 16:06 | disposition home or self-care (01) ==
LOC: LAB.R 16:05
DX: N18.9 Chronic kidney disease, unspecified (principal)
CPT/HCPCS: 80048

== ENCOUNTER 2017-03-04 15:00 | Outpatient (CLI) | payer MEDICARE ==
--- NOTE | 2017-03-04 20:05 | CONSULTATION NOTE ---
Palliative Care Follow Up - Referral Referring Provider: Dr. Tito Ramires Time of Visit: [id number] Referral setting: [facility] Referral Reason: Back pain/f/up pneumnoia - Information Sources Records reviewed: RN notes reviewed, Previous records reviewed History/Review of Systems obtained from: Patient, Family (son Axel at visit) Exam limitations: No limitations - History of Present Illness Update Brief HPI Update: This is an 86-year-old gentleman who recently was hospitalized at [facility] 02/15-02/19. He was admitted with pneumonia, this is improved. He has a few crackles in his left lower lobe, no further cough, and his respiratory status is improved. He is off oxygen his O2 sats are 95% on room air. His most pressing problem has continued to be his lower back pain. He has been on the fentanyl 12 mcg patch. He has been using oxycodone 10 mg averaging about 3-4 times a day. For breakthrough pain. His pain is fairly intense located in his upper lumbar spine radiating over to the left. He is also had some upper thoracic pain and discomfort. He does spend the majority of its time when he is not ambulating or up in the wheelchair laying in bed, the recliner he has is not comfortable. He does have a recliner at home that he is able to position self and better. He is pain had escalated such she was unable to participate as much in therapy today, physical therapy is going to work with getting him some heat to assist with his muscle spasms as well. His mental status is cleared, he is able to track conversation, participate and give accurate review of systems today. He has been sleeping somewhat better, though feels like he is not rested with the multiple interruptions of his day. Social History - Living Situation Living arrangement: At home Living Situation: With family (Sepideh DEMPSEY and son Axel) Support System: Did spend some time talking about transitioning home, what increased support they would need. He does acknowledge he is going to need some assistance with bathing and personal care, we did discuss hiring several hours at least a few times a week to help with this and also for respite. Medications/Allergies - Medications Home Medications: Ambulatory Orders Medication Instructions Recorded Confirmed Carvedilol 25 mg PO BID 01/23/13 03/04/17 Docusate Sodium 100Mg Capsule 100 mg PO BID 03/20/13 03/04/17 [Colace 100Mg Capsule] Insulin Glargine,Hum.rec.anlog 10 units SUBQ QDBREAKFAST 05/30/13 03/04/17 [Lantus] Acetaminophen [Tylenol] 650 mg PO Q4HR PRN tablet 02/19/17 03/04/17 Amitriptyline [Elavil] 10 mg PO 2100 #0 02/19/17 03/04/17 Ferrous Gluconate 324 mg PO DAILY #0 02/19/17 03/04/17 Folic Acid 1 mg PO DAILY #0 02/19/17 03/04/17 Furosemide 80 mg PO DAILY #0 02/19/17 03/04/17 Lidocaine Patch 5% [Lidoderm Patch] 1 patch TOP DAILY PRN #14 patch 02/19/1707/16 Pantoprazole [Protonix] 40 mg PO BID #30 tablet 02/19/17 03/04/17 Polyethylene Glycol 3350 [Miralax] 17 gm PO DAILY packet 02/19/17 03/04/17 Prazosin [Minipress] 5 mg PO BID #0 02/19/17 03/04/17 Senna [Senokot] 17.2 mg PO BID #0 02/19/17 03/04/17 Simvastatin 20 mg PO HS #0 02/19/17 03/04/17 Tamsulosin [Flomax] 0.4 mg PO BID 02/20/17 03/04/17 hydrALAZINE [Apresoline] 50 mg PO BID 02/20/17 03/04/17 oxyCODONE [Roxicodone] 5 - 10 mg PO Q6HR PRN 02/20/17 03/04/17 fentaNYL 12 MCG PATCH [Duragesic 25 mcg TOP Q3D 03/04/17 03/04/17 12mcg patch] - Allergies Allergies/Adverse Reactions: Allergies Allergy/AdvReac Type Severity Reaction Status Date / Time Penicillins Allergy Mild Rash Verified 02/15/17 10:42 Review of Systems - Constitutional Constitutional: reports: Fatigue, Poor appetite (depends on food served) - Ears, Nose & Throat Ears, Nose & Throat: reports: Hearing loss - Cardiovascular Cardiovascular: reports: Decr. exercise tolerance. denies: Chest pain, Lightheadedness - Respiratory Respiratory: reports: SOB with exertion. denies: Cough, Orthopnea, SOB at rest - Gastrointestinal Gastrointestinal: denies: Constipation, Nausea, Reflux/heartburn - Genitourinary Genitourinary: reports: Frequency, Urgency - Musculoskeletal Musculoskeletal: reports: Muscle pain, Back pain, Stiffness, Limited range of motion, Muscle weakness, Assistive devices (using 4WW has walked 180 feet with PT), Transfer issues (some difficulty with transfering related to back pain) - Integumentary Integumentary: reports: Nail changes (thickened toe nails; will need referral to catalogue illustrator) - Neurological Neurological: reports: General weakness, Memory problems (much improved) - Psychiatric Psychiatric: reports: Anxiety (wanting to get home). denies: Depression - Endocrine Endocrine: reports: Diabetes type 2 (only ss one time; had large hamburger fast food) - Hematologic/Lymphatic Hematologic/Lymphatic: reports: Anemia, Recurrent infections (recovering from pneumonia) - All Other Systems All Other Systems: reports: Reviewed and negative Physical Exam - Vital Signs Temperature: 97.5 C Pulse Rate: 58 Respiratory Rate: 20 O2 Saturation: 95 (ra @ rest) Blood Pressure: 132/72 - Physical Exam General Appearance: positive: No acute distress Eyes Bilateral: positive: Normal inspection ENT: positive: No signs of dehydration Neck: positive: No JVD, Trachea midline Cardiovascular: positive: Regular rate & rhythm Respiratory: positive: Rales (crackles left lower lobe; improve with deep breathing) Abdomen: positive: Non-tender, Soft, Nml bowel sounds, Obese Skin: positive: Pressure wound (stage I decub gluteal fold about 2 x 3 cm; no moist desquamation) Extremities: positive: No pedal edema, Other (much improved bed mobility; sitting from laying independent; transfer to walker posture remains poor) Neurologic/Psychiatric: positive: Oriented x3 Palliative Care - POLST Patient has POLST: Yes POLST Status: DNR, Limited Interventions Pain: Pain worsening, Location (back; reports severe and limiting today; oxycodone 10 for BTP witnh fentanyl 12 mcg patch. Worsens with lying in bed; but not comfortable in recliner) Tiredness/Fatigue: Moderate (4-6) Drowsiness/Sedation: Mild (1-3) Nausea: None Depression: None Anxiety: Mild (1-3) Dyspnea: Mild (1-3) Anorexia: None Sleep: Variable sleep pattern Constipation: Yes, Opoid induced, Managed (Bowel movement now 2 times in a row daily. 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 Patient needs to sleep with his bed greater than 30 to manage both dyspnea secondary to pneumonia as well as prevent choking. Patient currently continues to need assistance with bathing, contact assist from sitting to stand, and transfers. Patient with limited bed mobility secondary to back pain. Does have 4 wheeled walker, contact assist for ambulation and supervision needed. - Palliative Care Discussion: Patient's current goals are to return home, his small dog is there and is missing him. Does recognize he has not returned to his previous level of functioning, discussed given his current health status and multiple comorbidities and recent hospitalization expect that will be at a "new normal" which may need to include hiring assistance to help manage at home. We did discuss his long-term goal is not to return back to the hospital are group home, this would mean more active management in the home setting. Currently recognize he would be unable to leave the home except for provider visits, family is committed but also experiencing caregiver fatigue and concern regarding transitions. Impression and Recommendations - Palliative Care Impression: This is an 86-year-old gentleman with a recent hospitalization for pneumonia and acute exacerbation of his knee pain, acute on chronic back pain, uncontrolled diabetes, exacerbation of CHF, acute on chronic renal failure, right knee effusion, and decreased functional status. Patient goals experience improved pain management, and focus on quality of life recognizing his recent decline, goal to improve independence and transition home safely. Recommendations/Counseling Done: 1. Acute on chronic back pain. Patient has exacerbation of his chronic back pain. Current regimen is about equal analgesic to home regimen, though this was somewhat ineffective and poorly controlled at home as well. Counseling and discussion with both patient and son about increasing fentanyl to improve his overall pain management, with the hope to improve his ability to cope and engage in therapy.We will increase fentanyl to 25 mcg patch, counseling regarding likely some increase in sedation first 24-48 hrs. Will have to add 12 mcg patch now and his next patch change is due Saturday. Reviewed and instructed on breakthrough pain management, will continue at 5-10 oxycodone every 6 hours, patient will have better control at home. Currently his frustration is on the timeliness of being able to get his medication. Reviewed the goal was to minimize his need for oxycodone and improve his overall comfort. Again counseling pain is to be diminished will not be totally eradicated. Goal is to make it so he is more able to participate in therapy, be more active, and less distressed. I suspect transitioning home to his recliner and home setting will improve some of the environmental factors that are adding to his pain and pain behaviors. 2 pneumonia. Patient's respiratory status is improved dramatically. Will discontinue Levaquin, and sure why it got extended past the 7 days. Patient doing pulmonary toilet, oxygen sats have improved, reviewed need to continue to be diligent particularly if patient remains somewhat bedbound. 3. Diabetes type 2. Patient's blood sugars have seldom needed coverage with sliding scale. Patient is getting ready to transition home. Will return to home schedule with long acting Lantus 10 units in a.m. only and back to twice a day blood sugar testing. 4. Constipation patiently currently controlled on current regimen. We did discuss may need to increase with his increased use of opioids. 5. Stage I decub. Moist desquamination has filled in from Stage II but surrounding area is still red and appears to be impacted by pressure. Patient has been mostly bedbound during the day when not doing therapy. Instruction on pressure relief measures, including sleeping on side. 6. Muscle weakness. Patient is participating in rehab, he is making progress with PT. Did discuss with son needing to make sure patient can do car transfers. This is usually done with OT. * F2F for HH. Would recommend home PT /OT and transition back home. For home safety eval; progress home exercise program; and continue on endurance building. OT for bathing set up, caregiver training, and evaluate equipment needs in the home.Also recommended for transition hiring ongoing personal care assistance for bathing, respite for her son, as well in preparation for future decline *F2F for hospital bed and group I support surface/Solus Mattress: Due to dysphasia as a result of esophageal stenosis, and chronic back pain as a result of lumbar spine stenosis patient requires positioning in the body in ways not feasible and ordinary bed. Patient does require elevation of head more than 30 to Alleviate symptoms of choking caused by esophageal stenosis and residual pneumonia. Patient also requires frequent body changes such as immediate elevation of head from flat to position to an elevation over 30 as a result of dysphasia and choking. Pillows and wedges have unsuccessfully been tried therefore a hospital bed is necessary for treating the condition. Patient also unable to position Body in ways not feasible and ordinary bed to alleviate pain secondary to lumbar stenosis. F2F Patient also requires Group 1 support service due to stage I ulcer on patient's pelvis as a result of back pain and difficulty changing positions. This is needed to promote wound healing. Also has compromised sensory perception as a result of residual damage from old frostbite injuries including neuropathies. Difficulty changing position if not managed and Group 1 support will promote healthy skin integrity Time Spent: Time spent 60 minutes with counseling regarding weighing benefits and burdens of titration of opioid management for ongoing acute on chronic back pain, recommendations for transition home, as well as anticipatory guidance. Coordination with clinical staff, regarding transition home. A follow-up with Sujatha social services director for equipment needs and services.
== END 2017-03-04 15:01 | disposition home or self-care (01) ==
LOC: PC 15:00
PROVIDERS: ATTEND Nurse Practitioner Adult Health
DX: Z51.5 Encounter for palliative care (principal); M54.5 Low back pain; G89.29 Other chronic pain; J18.9 Pneumonia, unspecified organism; E11.65 Type 2 diabetes mellitus with hyperglycemia; Z79.4 Long term (current) use of insulin; Z79.84 Long term (current) use of oral hypoglycemic drugs; K59.03 Drug induced constipation; T40.2X5D Adverse effect of other opioids, subsequent encounter; K22.2 Esophageal obstruction; L89.891 Pressure ulcer of other site, stage 1; M54.6 Pain in thoracic spine; Z79.891 Long term (current) use of opiate analgesic; R06.09 Other forms of dyspnea; M62.81 Muscle weakness (generalized); Z66 Do not resuscitate
CPT/HCPCS: 99310

== ENCOUNTER 2017-03-13 11:26 | Outpatient (CLI) | payer MEDICARE ==
[2017-03-13 19:25] LABS: HEMOGLOBIN A1C 0.65 g/dL
[2017-03-13 19:30] LABS: CALCIUM 9.1 mg/dL (8.5-10.3); CREATININE 1.6 mg/dL (0.6-1.2); POTASSIUM 3.8 mmol/L (3.5-5.0)
== END 2017-03-13 11:27 | disposition home or self-care (01) ==
LOC: LAB.F 11:26
PROVIDERS: ATTEND Family Medicine
DX: N18.9 Chronic kidney disease, unspecified (principal); I50.9 Heart failure, unspecified; E11.9 Type 2 diabetes mellitus without complications
CPT/HCPCS: 36415; 80048; 83036; 83880

== ENCOUNTER 2017-03-30 19:57 | Outpatient (CLI) | payer MEDICARE | END 2017-03-30 19:58 | disposition critical access hospital (66) | LOC: EMS 19:57 | PROVIDERS: ATTEND Surgery | DX: R06.02 Shortness of breath (principal); R50.9 Fever, unspecified; R61 Generalized hyperhidrosis | CPT/HCPCS: A0425; A0427 ==

== ENCOUNTER 2017-03-30 20:22 | Inpatient (IN) | payer MEDICARE ==
[2017-03-30] MEDS ORDERED: FUROSEMIDE 40 MG/4 ML VIAL IVP STA (20:30)
[2017-03-30] MEDS ORDERED: IPRATROPIUM/ALBUTEROL 3 ML NEB INH STA (20:30)
[2017-03-30] MEDS ORDERED: IPRATROPIUM/ALBUTEROL 3 ML NEB INH ONE (20:39)
[2017-03-30] MEDS ORDERED: VANCOMYCIN INJ 1.5 GM in SODIUM CHLORIDE 0.9% 500 ML IV STA (21:04)
[2017-03-30] MEDS ORDERED: cefTRIAXone 1 GM in SODIUM CHLORIDE 0.9% MINIBAG 100 ML IV STA (21:05)
[2017-03-30 21:18] LABS: ALBUMIN 3.3 g/dL (3.2-5.5); ALBUMIN/GLOBULIN RATIO 0.8 (1.0-2.2); ALKALINE PHOSPHATASE 60 IU/L (42-121); ALT ALANINE AMINOTRANSFERASE < 10 IU/L (10-60); AST ASPARTATE AMINOTRANSFERASE 15 IU/L (10-42); BASOPHILS # (AUTO) 0.2 10^3/uL (0.0-0.1); BASOPHILS % (AUTO) 1.3 %; BILIRUBIN,TOTAL 0.7 mg/dL (0.2-1.0); BUN - BLOOD UREA NITROGEN 54 mg/dL (6-20); CALCIUM 9.2 mg/dL (8.5-10.3); CARBON DIOXIDE - CO2 33 mmol/L (21-32); CHLORIDE 105 mmol/L (101-111); CREATININE 1.6 mg/dL (0.6-1.2); EOSINOPHILS # (AUTO) 0.1 10^3/uL (0.0-0.7); EOSINOPHILS % (AUTO) 0.5 %; GFR - MDRD 41 (>89); GLUCOSE 118 mg/dL (70-100); HGB - HEMOGLOBIN 11.3 g/dL (14.0-18.0); LIPASE 22 U/L (22-51); LYMPHOCYTES # (AUTO) 0.3 10^3/uL (1.5-3.5); LYMPHOCYTES % (AUTO) 2.2 %; MEAN CORPUSCULAR HEMOGLOBIN 30.5 pg (27.0-31.0); MEAN CORPUSCULAR HGB CONC 32.9 g/dL (32.0-36.0); MEAN CORPUSCULAR VOLUME 92.9 fL (80.0-94.0); MEAN PLATELET VOLUME 7.3 fL (7.4-11.4); MONOCYTES # (AUTO) 0.4 10^3/uL (0.0-1.0); MONOCYTES % (AUTO) 2.7 %; NEUTROPHILS # (AUTO) 14.3 10^3/uL (1.5-6.6); NEUTROPHILS % (AUTO) 93.3 %; PLT - PLATELET COUNT 196 10^3/uL (130-450); RED BLOOD COUNT 3.69 10^6/uL (4.70-6.10); RED CELL DISTRIBUTION WIDTH 15.5 % (12.0-15.0); SODIUM 143 mmol/L (135-145); TOTAL PROTEIN 7.7 g/dL (6.7-8.2); WHITE BLOOD COUNT 15.3 x10^3/uL (4.8-10.8)
--- NOTE | 2017-03-30 21:22 | XRAY Preliminary Report ---
Exam: XR CHEST 1 VIEW IMPRESSION: 1. Mild cardiac enlargement. 2. Diffuse interstitial and alveolar opacities throughout both lungs suspicious for edema or infiltra atul. Small effusions. No pneumothorax. [facility] SITE ID: [id number]
[2017-03-30 21:32] LABS: PLATELET ESTIMATE, MANUAL NORMAL (130-450,000) (NORMAL); PLATELET MORPHOLOGY NORMAL APPEARANCE (NORMAL); RBC MORPHOLOGY (MULTIPLE) 1+ HYPOCHROMASIA (NORMAL)
[2017-03-30] MEDS ORDERED: ONDANSETRON 4 MG/2 ML VIAL IVP PRN (21:42)
[2017-03-30] MEDS ORDERED: ONDANSETRON ODT 4 MG TABLET TL PRN (21:42)
--- NOTE | 2017-03-30 21:55 | ED Physician Documentation ---
PD HPI DYSPNEA - Stated complaint Stated Complaint: SOB/FEVER - Chief complaint Chief Complaint: Resp - History obtained from History obtained from: Family, EMS - History of Present Illness Timing - onset: Today Timing - details: Gradual onset, Still present Improved by: O2 Associated symptoms: Fever, Cough Similar symptoms before: Work up / diagnostics, Treatment Recently seen: Admitted - Additional information Additional information: Patient is a 86 year old male with a history of copd and chf, who is in a [facility] who is presenting to the emergency department for hypoxia and worsening shortness of breath. [facility] staff called and stated that the patient was less responsive, febrile and coughing. When ems arrived patient was found to be hypoxic with an oxygenation in the 70s. Patient was minimally responsive upon initial evaluation Review of Systems Unable to obtain: Confused PD PAST MEDICAL HISTORY - Past Medical History Past Medical History: Yes Cardiovascular: Congestive heart failure, Hypertension, Atrial fibrillation Respiratory: Pneumonia Neuro: Other Endocrine/Autoimmune: Type 2 diabetes GI: GERD, Other : Incontinence, Renal insuffiency HEENT: Chronic hearing loss Psych: Depression, Anxiety Musculoskeletal: Osteoarthritis, Chronic back pain Derm: None - Past Surgical History Past Surgical History: Yes Ortho: Knee replacement HEENT: Tonsil/Adenoidectomy - Present Medications Home Medications: Ambulatory Orders Medication Instructions Recorded Confirmed Carvedilol 25 mg PO BID 01/23/13 03/30/17 Docusate Sodium 100Mg Capsule 100 mg PO BID 03/20/13 03/30/17 [Colace 100Mg Capsule] Insulin Glargine,Hum.rec.anlog 10 units SUBQ QDBREAKFAST 05/30/13 03/30/17 [Lantus] Acetaminophen [Tylenol] 650 mg PO Q4HR PRN tablet 02/19/17 03/30/17 Amitriptyline [Elavil] 10 mg PO 2100 #0 02/19/17 03/30/17 Ferrous Gluconate 324 mg PO DAILY #0 02/19/17 03/30/17 Folic Acid 1 mg PO DAILY #0 02/19/17 03/30/17 Furosemide 80 mg PO DAILY #0 02/19/17 03/30/17 Lidocaine Patch 5% [Lidoderm Patch] 1 patch TOP DAILY PRN #14 patch 02/19/17 Pantoprazole [Protonix] 40 mg PO BID #30 tablet 02/19/17 03/30/17 Polyethylene Glycol 3350 [Miralax] 17 gm PO DAILY packet 02/19/17 03/30/17 Prazosin [Minipress] 5 mg PO BID #0 02/19/17 03/30/17 Senna [Senokot] 17.2 mg PO BID #0 02/19/17 03/30/17 Simvastatin 20 mg PO HS #0 02/19/17 03/30/17 Tamsulosin [Flomax] 0.4 mg PO BID 02/20/17 03/30/17 hydrALAZINE [Apresoline] 50 mg PO BID 02/20/17 03/30/17 oxyCODONE [Roxicodone] 5 - 10 mg PO Q6HR PRN 02/20/17 03/30/17 fentaNYL 12 MCG PATCH [Duragesic 25 mcg TOP Q3D 03/04/17 03/30/17 12mcg patch] - Allergies Allergies/Adverse Reactions: Allergies Allergy/AdvReac Type Severity Reaction Status Date / Time Penicillins Allergy Mild Rash Verified 03/30/17 20:30 morphine AdvReac Hallucinati Verified 03/30/17 23:36 ons - Social History Does the pt smoke?: No Smoking Status: Never smoker Does the pt drink ETOH?: Yes Does the pt have substance abuse?: No - Immunizations Immunizations are current?: Yes - POLST Patient has POLST: Yes POLST Status: Full Code PD ED PE NORMAL - Vitals Vital signs reviewed: Yes PD ED PE EXPANDED - General General: Other (ill appearing) - HEENT HEENT: Dry mucous membranes - Eyes Eyes: Other (pupils 1.5mm bilaterally) - Cardiac Cardiac: Murmur Present - Respiratory Respiratory: Labored, Accessory mm use, Rhonchi, Rales, Right upper lobe, Right middle lobe, Right lower lobe, Left upper lobe, Left lower lobe - Abdomen Abdomen: No: Tender to palpation, Rebound - GCS Eye Opening: To Pain Motor: Localizes to Pain Verbal: None Total: 8 Results - Vitals Vitals: Vital Signs - 24 hr 03/30/17 03/30/17 03/30/17 20:22 20:25 21:04 Temperature 36.7 C Heart Rate 88 82 84 Respiratory 22 24 26 H Rate Blood Pressure 123/68 102/50 L O2 Saturation 71 L 95 03/30/17 03/30/17 03/30/17 21:33 21:40 22:03 Temperature Heart Rate 82 87 81 Respiratory 34 H 33 H Rate Blood Pressure 97/58 L O2 Saturation 91 L 91 L Oxygen O2 Source [Without Activity] Nasal cannula O2 Source [With Activity] Nasal cannula O2 Source BIPAP Oxygen Flow Rate 10 - Labs Labs: Laboratory Tests 03/30/17 03/30/17 20:48 20:48 WBC 15.3 H RBC 3.69 L Hgb 11.3 L Hct 34.2 L MCV 92.9 MCH 30.5 MCHC 32.9 RDW 15.5 H Plt Count 196 MPV 7.3 L Neut # 14.3 H Lymph # 0.3 L [place] # 0.4 Eos # 0.1 Baso # 0.2 H Absolute Nucleated RBC 0.00 Nucleated RBC % 0.0 Manual Slide Review Indicated Platelet Estimate NORMAL (130-450,000) Platelet Morphology NORMAL APPEARANCE RBC Morph Micro Appear 1+ HYPOCHROMASIA Sodium 143 Potassium 3.5 Chloride 105 Carbon Dioxide 33 H Anion Gap 5.0 L BUN 54 H Creatinine 1.6 H Estimated GFR (MDRD) 41 L Glucose 118 H Calcium 9.2 Total Bilirubin 0.7 AST 15 ALT < 10 L Alkaline Phosphatase 60 Total Protein 7.7 Albumin 3.3 Globulin 4.4 H Albumin/Globulin Ratio 0.8 L Lipase 22 - Rads (name of study) chest x-ray Radiology: Final report received (bilateral infiltrates or edema) PD MEDICAL DECISION MAKING - ED course Complexity details: reviewed old records, reviewed results, re-evaluated patient , considered differential, d/w family, d/w recruitment consultant ED course: Patient was seen immediately at bedside. patient was on a non-rebreather and was hypoxic in the 70s. Family was at bedside. patient is DNi/DNR. Family was made aware that he had pinpoint pupils and was offered narcan but they stated that they wanted him comfortable and did not want narcan. labs were drawn and chest x-ray was ordered. Patient was emperically treated with IV lasix. Family stated that they were open to a trial of bipap. Patient was placed on bipap and tolerated it well. Ptaient's ekg showed diffuse edema and possible infiltrates. Patient was also started on antibiotics. Hospitalist was contacted and the case was discussed with her. Patient was admitted to her service for further evaluation and care. Departure - Departure Disposition: [facility] DC/Xfer Clinical Impression: Respiratory failure Condition: Critical Discharge Date/Time: 03/30/17 22:45
[2017-03-30] MEDS ORDERED: levoFLOXacin 750 MG/150 ML 750 MG/150 ML BAG IV SCH (22:00)
[2017-03-30] MEDS ORDERED: VANCOMYCIN 1 GM VIAL ONE (22:20)
--- NOTE | 2017-03-30 22:41 | XRAY Report ---
EXAM: CHEST RADIOGRAPHY EXAM DATE: 03/30/2017 09:09 PM. CLINICAL HISTORY: Short of air. COMPARISON: 02/15/2017. TECHNIQUE: 1 view. FINDINGS: Lungs/Pleura: Dense bilateral alveolar and interstitial opacities predominantly affecting the perihil ar and bilateral lower lobe regions. Blunting of both costophrenic angles is noted. No pneumothorax. EKG leads overlie the chest. Mediastinum: Stable cardiac enlargement with atheromatous plaques in the thoracic arch. EKG leads ove rlie the chest. Other: None. IMPRESSION: 1. Mild cardiac enlargement. 2. Diffuse interstitial and alveolar opacities throughout both lungs suspicious for edema or infiltra atul. Small effusions. No pneumothorax. [facility] Referring Provider Line: [phone] SITE ID: [id number]
[2017-03-30] MEDS: SODIUM CHLORIDE FLUSH 0.9% 10 ML SYRINGE IVP SCH (23:38)
[2017-03-30] MEDS ORDERED: SODIUM CHLORIDE 0.9% MINIBAG 100 ML IV ONE (23:50)
[2017-03-31 02:05] LABS: ABG BASE EXCESS 1.5 mmol/L (-2.0-3.0); ABG HCO3 30.7 mmol/L (22.0-26.0); ABG OXYGEN SATURATION 99 % (94-98); ABG PH 7.23 (7.35-7.45); ABG TCO2 32.9 MMOL/L (21.0-29.0)
[2017-03-31 02:06] LABS: ALLEN TEST POSITIVE
[2017-03-31 02:08] LABS: ABG PCO2 75 mmHg (34-45); ABG PO2 248 mmHg (80-100)
[2017-03-31] MEDS: AZTREONAM 2 GM in SODIUM CHLORIDE 0.9% MINIBAG 100 ML IV SCH ×4 (02:11→21:52)
[2017-03-31] MEDS ORDERED: VANCOMYCIN INJ 1 GM in SODIUM CHLORIDE 0.9% 250 ML IV SCH (03:00)
[2017-03-31 05:39] LABS: HGB - HEMOGLOBIN 10.7 g/dL (14.0-18.0); LYMPHOCYTES # (AUTO) 0.2 10^3/uL (1.5-3.5); LYMPHOCYTES % (AUTO) 1.3 %; MEAN CORPUSCULAR HGB CONC 31.7 g/dL (32.0-36.0); MEAN CORPUSCULAR VOLUME 94.8 fL (80.0-94.0); MEAN PLATELET VOLUME 7.6 fL (7.4-11.4); MONOCYTES # (AUTO) 0.6 10^3/uL (0.0-1.0); NEUTROPHILS % (AUTO) 94.7 %; PLT - PLATELET COUNT 166 10^3/uL (130-450); RED BLOOD COUNT 3.55 10^6/uL (4.70-6.10); RED CELL DISTRIBUTION WIDTH 15.6 % (12.0-15.0); WHITE BLOOD COUNT 14.8 x10^3/uL (4.8-10.8)
[2017-03-31 05:46] LABS: CALCIUM 8.7 mg/dL (8.5-10.3); CREATININE 1.9 mg/dL (0.6-1.2)
[2017-03-31] MEDS: SODIUM CHLORIDE FLUSH 0.9% 10 ML SYRINGE IVP SCH ×3 (06:23→21:54)
[2017-03-31 10:09] LABS: ABG BASE EXCESS 2.5 mmol/L (-2.0-3.0); ABG HCO3 29.1 mmol/L (22.0-26.0); ABG PCO2 55 mmHg (34-45); ABG PH 7.34 (7.35-7.45); ABG TCO2 30.8 MMOL/L (21.0-29.0); ALLEN TEST POSITIVE
[2017-03-31 10:21] LABS: ABG OXYGEN SATURATION 83 % (94-98); ABG PO2 47 mmHg (80-100)
[2017-03-31] MEDS ORDERED: MIN OIL/DIMETHICON/COCONUT OIL 92 GM TUBE TOP ONE (14:10)
--- NOTE | 2017-03-31 15:40 | PROVIDER PROGRESS NOTE ---
Assessment/Plan - Problem List (1) Acute respiratory failure with hypoxia and hypercapnia Assessment/Plan: Patient was recently admitted for pneumonia [id number]. After hospitalization he went to [facility] for rehab because of functional decline and spinal stenosis he had come back home about 2 weeks ago and prior to admission suddenly developed respiratory distress and became unresponsive. On presentation to the emergency room the patient was found to be in respiratory failure and chest x-ray revealed diffuse alveolar infiltrates. The patient's ABG showed respiratory acidosis with a PCO2 of 75. Patient had recently had his fentanyl dose increased. Patient was admitted for respiratory failure with hypoxia and hypercapnia. The patient's respiratory failure was likely multifactorial secondary to a new pneumonia, as well as pulmonary vascular congestion and increased pulmonary edema from CHF and likely respiratory depression from fentanyl. Patient was initially placed on BiPAP He has had significant improvement with BiPAP his PCO2 this morning is down to 55 and the patient is more alert and awake and near his baseline mental status. Patient is still requiring 6 L of oxygen and still has a ways to go before he recovers completely Plan: BiPAP as needed O2 as needed IV antibiotics continue IV Levaquin, IV vancomycin and IV aztreonam given penicillin allergy Continue IV Lasix Monitor closely in the ICU for 1 more night in the case patient needs BiPAP. (2) HCAP (healthcare-associated pneumonia) Assessment/Plan: Patient had recent diagnosis of pneumonia which was treated and now patient has developed recurrent pneumonia with recent hospitalization this is considered a healthcare associated pneumonia. Patient appears to be improving significantly after being started on IV antibiotics and being placed on BiPAP he is currently off BiPAP and ABG looks much better. The patient is also more alert and oriented. The patient is no longer in respiratory distress. Plan: Continue IV vancomycin, aztreonam and Levaquin day 2 Continue oxygen as needed Continue BiPAP as needed Monitor closely Follow blood and sputum cx Some concern for aspiration pneumonia will get swallow evaluation (3) CHF exacerbation Assessment/Plan: The patient has a mildly decreased ejection fraction of 50% on previous echocardiogram and does have severe pulmonary hypertension and severe right atrial enlargement suggesting likely diastolic heart failure. Patient had significant alveolar infiltrates on his chest x-ray suggesting a pneumonia but patient also sounded wet on examination concerning for pulmonary congestion. Patient was given 1 dose of Lasix in the emergency department and did seem to respond appropriately. Plan: Patient will be placed on IV Lasix twice daily and we will continue to monitor his output. (4) Diabetes Qualifiers: Diabetes mellitus type: type 2 Assessment/Plan: Patient has history of diabetes and is on Lantus 10 units nightly Blood glucose is only mildly elevate We will place him on sliding scale insulin and Lantus 10 units nightly Patient be placed on diabetic diet. We will monitor glucose before meals at bedtime Check hemoglobin A1c (5) HTN (hypertension) Qualifiers: Hypertension type: essential hypertension Qualified Code(s): I10 - Essential (primary) hypertension Assessment/Plan: Patient has history of hypertension patient's blood pressure was borderline low on presentation. The patient's blood pressure is now improved however we will still hold off on giving antihypertensives until patient's blood pressure is improved. Patient's Lasix was held today but will be restarted in the morning. - Current Meds Current Meds: Current Medications Generic Name Dose Route Start Last Admin Trade Name Freq PRN Reason Stop Dose Admin Aztreonam 2 gm/ Sodium 100 mls @ 100 mls/hr 03/31/17 15:00 03/31/17 15:15 Chloride IV 100 mls/hr Q6H ASHLY Administration Sodium Chloride 10 ml 03/30/17 22:00 03/31/17 14:19 Normal Saline Flush 0.9% IVP Not Given Q8HR ASHLY - Lab Result Lab results reviewed: Yes Fish Bone Diagrams: 03/31/17 04:38 03/31/17 04:38 - Diagnostic Imaging Results Diagnostic Imaging Results: Final report reviewed - Additional Planning Condition/Complexity: Guarded My Orders: My Active Orders 04/01/17 05:00 A1C [CHEM] DAILYLAB 03/31/17 Clinical Swallow Evaluation [ST] Routine 03/31/17 12:23 RT [Nebulizer/MDI Tx.] [RC] .q4prn 03/31/17 15:22 Blood Glucose Checks - Eating [RC] 0800,1200,1700,2100 Initiate Hypoglycemia Protocol [RC] .protocol 03/31/17 16:00 Saccharomyces Boulardii [Florastor] 250 mg PO BIDWM 03/31/17 17:00 Insulin Aspart [NovoLOG] 1 - 5 unit SUBQ 0800,1200,1700,2100 03/31/17 21:00 Insulin Glargine [Lantus Solostar] 10 unit SUBQ QPM 03/31/17 Lunch Carb-controlled Diet [DIET] Plan Discussed with:: Patient, Family Time Spent: 31-60 minutes Subjective - Subjective Patient Reports: Cough (Continues to have coughing and requiring deep suctioning ), Shortness of Breath (Still SOB but improving), Other (No fevers, or chills) Nursing Reports: No Complaints Objective Vital Signs: Vital Signs - 24 hr 03/30/17 03/31/17 03/31/17 23:00 00:00 01:00 Temperature 36.8 C Heart Rate Heart Rate [ 80 73 67 Monitoring electrodes] Respiratory 30 H 21 18 Rate Blood Pressure 84/53 L 76/47 L 89/61 L [Right Brachial artery] O2 Saturation 96 100 100 03/31/17 03/31/17 03/31/17 02:00 03:00 03:11 Temperature Heart Rate 72 Heart Rate [ 72 72 Monitoring electrodes] Respiratory 18 16 Rate Blood Pressure 101/63 88/54 L [Right Brachial artery] O2 Saturation 100 97 03/31/17 03/31/17 03/31/17 04:00 04:49 05:00 Temperature 36.8 C Heart Rate Heart Rate [ 70 67 Monitoring electrodes] Respiratory 24 27 H Rate Blood Pressure 92/59 L 100/61 [Right Brachial artery] O2 Saturation 94 98 03/31/17 03/31/17 03/31/17 06:00 07:00 08:00 Temperature Heart Rate Heart Rate [ 68 64 70 Monitoring electrodes] Respiratory 23 18 32 H Rate Blood Pressure 109/62 87/53 L 102/68 [Right Brachial artery] O2 Saturation 92 99 86 L 03/31/17 03/31/17 03/31/17 09:00 10:00 11:00 Temperature Heart Rate Heart Rate [ 71 73 69 Monitoring electrodes] Respiratory 27 H 25 H 15 Rate Blood Pressure 104/54 L 93/47 L 94/46 L [Right Brachial artery] O2 Saturation 88 L 88 L 93 03/31/17 03/31/17 03/31/17 12:00 13:00 14:00 Temperature 36.6 C Heart Rate Heart Rate [ 76 70 75 Monitoring electrodes] Respiratory 21 33 H 28 H Rate Blood Pressure 105/54 L 109/56 L 114/57 L [Right Brachial artery] O2 Saturation 93 88 L 88 L 03/31/17 15:00 Temperature Heart Rate Heart Rate [ 74 Monitoring electrodes] Respiratory 17 Rate Blood Pressure 113/62 [Right Brachial artery] O2 Saturation 96 Oxygen O2 Source Oxymask I&O (Last 24 Hrs): Intake and Output Totals x24h 03/29/17 03/30/17 03/31/17 23:59 23:59 23:59 Intake Total 100 1985 Output Total 0 360 Balance 100 1625 General: Alert, Oriented x3, Cooperative, Mild distress (Coughing and conitnued suction) HEENT: Atraumatic, PERRLA, EOMI, Mucous membr. moist/pink Neck: Supple, No thyromegaly, +2 carotid pulse wo bruit, No LAD Lymphatic: no adenopathy Neuro: Alert, Non Focal, CN 2-12 Grossly Intact, Oriented Times 3 Cardiovascular: Other (Systolic murmur) Respiratory: Rales (Bases), Rhonchi (Diffuse) Abdomen: Normal bowel sounds, Soft, No tenderness, No hepatospenomegaly Extremities: No clubbing, No cyanosis, Normal pulses, Other (Bilateral LE edema) Comments/Notes: Bilateral legs wrapped in bandages - Results Results: Laboratory Results WBC 14.8 x10^3/uL (4.8-10.8) H 03/31/17 04:38 RBC 3.55 10^6/uL (4.70-6.10) L 03/31/17 04:38 Hgb 10.7 g/dL (14.0-18.0) L 03/31/17 04:38 Hct 33.7 % (42.0-52.0) L 03/31/17 04:38 MCV 94.8 fL (80.0-94.0) H 03/31/17 04:38 MCH 30.0 pg (27.0-31.0) 03/31/17 04:38 MCHC 31.7 g/dL (32.0-36.0) L 03/31/17 04:38 RDW 15.6 % (12.0-15.0) H 03/31/17 04:38 Plt Count 166 10^3/uL (130-450) 03/31/17 04:38 MPV 7.6 fL (7.4-11.4) 03/31/17 04:38 Neut # 14.0 10^3/uL (1.5-6.6) H 03/31/17 04:38 Lymph # 0.2 10^3/uL (1.5-3.5) L 03/31/17 04:38 Cul[place]on # 0.6 10^3/uL (0.0-1.0) 03/31/17 04:38 Eos # 0.0 10^3/uL (0.0-0.7) 03/31/17 04:38 Baso # 0.0 10^3/uL (0.0-0.1) 03/31/17 04:38 Absolute Nucleated RBC 0.00 x10^3/uL 03/31/17 04:38 Nucleated RBC % 0.0 /100WBC 03/31/17 04:38 Manual Slide Review Indicated 03/30/17 20:48 Platelet Estimate NORMAL (130-450,000) (NORMAL) 03/30/17 20:48 Platelet Morphology NORMAL APPEARANCE (NORMAL) 03/30/17 20:48 RBC Morph Micro Appear 1+ HYPOCHROMASIA (NORMAL) 03/30/17 20:48 Bld Gas Analysis Time 1006 03/31/17 09:55 Sample Site RIGHT RADIAL 03/31/17 09:55 ABG pH 7.34 (7.35-7.45) L 03/31/17 09:55 ABG pCO2 55 mmHg (34-45) H 03/31/17 09:55 ABG pO2 47 mmHg (80-100) L* 03/31/17 09:55 ABG HCO3 29.1 mmol/L (22.0-26.0) H 03/31/17 09:55 ABG Total CO2 30.8 MMOL/L (21.0-29.0) H 03/31/17 09:55 ABG O2 Saturation 83 % (94-98) L* 03/31/17 09:55 ABG Base Excess 2.5 mmol/L (-2.0-3.0) 03/31/17 09:55 James Test POSITIVE 03/31/17 09:55 O2 Delivery Device NASAL CANNULA 03/31/17 09:55 FiO2 100.00 03/31/17 01:57 EPAP 5 cmH2O 03/31/17 01:57 IPAP 12 cmH2O 03/31/17 01:57 Sodium 143 mmol/L (135-145) 03/31/17 04:38 Potassium 3.6 mmol/L (3.5-5.0) 03/31/17 04:38 Chloride 105 mmol/L (101-111) 03/31/17 04:38 Carbon Dioxide 30 mmol/L (21-32) 03/31/17 04:38 Anion Gap 8.0 (6-13) 03/31/17 04:38 BUN 57 mg/dL (6-20) H 03/31/17 04:38 Creatinine 1.9 mg/dL (0.6-1.2) H 03/31/17 04:38 Estimated GFR (MDRD) 34 (>89) L 03/31/17 04:38 Glucose 124 mg/dL (70-100) H 03/31/17 04:38 Calcium 8.7 mg/dL (8.5-10.3) 03/31/17 04:38 Total Bilirubin 0.7 mg/dL (0.2-1.0) 03/30/17 20:48 AST 15 IU/L (10-42) 03/30/17 20:48 ALT < 10 IU/L (10-60) L 03/30/17 20:48 Alkaline Phosphatase 60 IU/L (42-121) 03/30/17 20:48 Total Protein 7.7 g/dL (6.7-8.2) 03/30/17 20:48 Albumin 3.3 g/dL (3.2-5.5) 03/30/17 20:48 Globulin 4.4 g/dL (2.1-4.2) H 03/30/17 20:48 Albumin/Globulin Ratio 0.8 (1.0-2.2) L 03/30/17 20:48 Lipase 22 U/L (22-51) 03/30/17 20:48 - Procedures Procedures: Procedures ASSISTANCE WITH RESPIRATORY VENTILATION, 24-96 HRS, CPAP (03/23/15) DRAINAGE OF RIGHT KNEE JOINT, PERCUTANEOUS APPROACH, DIAGN (02/15/17) INTRODUCTION OF ANTI-INFLAMMATORY INTO JOINTS, PERC APPROACH (02/15/17)
[2017-03-31] MEDS: SACCHAROMYCES BOULARDII 250 MG CAPSULE PO SCH ×2 (16:03→16:38)
[2017-03-31] MEDS: INSULIN ASPART 300 UNIT/3 ML PEN SUBQ SCH ×2 (17:22→21:51)
[2017-03-31] MEDS: INSULIN GLARGINE 300 UNIT/3 ML PEN SUBQ SCH (21:51)
[2017-03-31] MEDS: VANCOMYCIN INJ 1 GM, VANCOMYCIN INJ 500 MG in SODIUM CHLORIDE 0.9% 500 ML IV SCH (22:55)
[2017-03-31] MEDS ORDERED: SODIUM CHLORIDE 0.9% 500 ML IV ONE (23:11)
[2017-04-01 03:50] LABS: HB2 TOTAL 11.1 g/dL; HEMOGLOBIN A1C 0.56 g/dL; HEMOGLOBIN A1C % 6.8 % (4.6-6.2)
[2017-04-01] MEDS: AZTREONAM 2 GM in SODIUM CHLORIDE 0.9% MINIBAG 100 ML IV SCH ×4 (04:10→21:38)
[2017-04-01] MEDS: FUROSEMIDE 20 MG/2 ML VIAL IVP SCH ×2 (06:09→13:44)
[2017-04-01] MEDS: SODIUM CHLORIDE FLUSH 0.9% 10 ML SYRINGE IVP SCH ×3 (06:10→22:17)
[2017-04-01] MEDS: INSULIN ASPART 300 UNIT/3 ML PEN SUBQ SCH ×4 (08:09→21:41)
[2017-04-01] MEDS: SACCHAROMYCES BOULARDII 250 MG CAPSULE PO SCH ×2 (08:22→17:18)
[2017-04-01] MEDS: ALBUTEROL NEB 2.5 MG/3 ML INH PRN (09:50)
--- NOTE | 2017-04-01 18:40 | PROVIDER PROGRESS NOTE ---
Assessment/Plan - Problem List (1) Acute respiratory failure with hypoxia and hypercapnia Assessment/Plan: Continue diuresis, srteroids and inhalers Will transfer out of ICU, as no BIPAP needed for 24 hours (2) HCAP (healthcare-associated pneumonia) Assessment/Plan: Continue antibiotics for Stah aureus (MRSA)as per positive culture and continue Tamilflu (3) DM2 (diabetes mellitus, type 2) Assessment/Plan: Stable glu values Continue diet and Insulin coverage - Current Meds Current Meds: Current Medications Generic Name Dose Route Start Last Admin Trade Name Freq PRN Reason Stop Dose Admin Albuterol 2.5 mg 03/30/17 21:42 04/01/17 09:50 INH 2.5 mg Q4HR PRN Administration Wheezing Furosemide 20 mg 04/01/17 06:00 04/01/17 13:44 Lasix Inj 20mg Vial IVP 20 mg BIDDIURETIC ASHLY Administration Vancomycin HCl 1 gm/ 500 mls @ 250 mls/hr 03/31/17 22:00 04/01/17 01:00 Vancomycin HCl 500 mg/ Sodium IV Infused Chloride Q24H ASHLY Infusion Aztreonam 2 gm/ Sodium 100 mls @ 100 mls/hr 03/31/17 15:00 04/01/17 15:50 Chloride IV Infused Q6H ASHLY Infusion Insulin Aspart 1 - 5 unit 03/31/17 17:00 04/01/17 16:45 Novolog SUBQ 1 unit 0800,1200,1700,2100 ASHLY Administration Protocol Insulin Glargine 10 unit 03/31/17 21:00 03/31/17 21:51 Lantus Solostar SUBQ 10 unit QPM ASHLY Administration Saccharomyces Boulardii 250 mg 03/31/17 16:00 04/01/17 17:18 Florastor PO 250 mg BIDWM ASHLY Administration Sodium Chloride 10 ml 03/30/17 22:00 04/01/17 13:44 Normal Saline Flush 0.9% IVP 10 ml Q8HR SAHLY Administration - Lab Result Fish Bone Diagrams: 04/02/17 05:16 04/02/17 05:16 - Additional Planning My Orders: My Active Orders 04/01/17 Evaluate and Treat PT [PT] Routine 04/01/17 10:46 Activity Orders [RC] QSHIFT 04/01/17 11:07 CULTURE, BLOOD #1 [RM] Urgent 04/01/17 15:16 Transfer [Admit \ Transfer \ Status] [RC] .ONCE 04/02/17 Echo Transthoracic Complete [ECHO] Routine 04/02/17 05:00 BMP - BASIC METABOLIC PANEL [CHEM] DAILYLAB CBC - COMP BLD CT W/AUTO DIFF [HEME] DAILYLAB MAGNESIUM [CHEM] DAILYLAB Subjective - Subjective Patient Reports: Feeling Better, Resting Comfortably Nursing Reports: Other (No further back pain) Objective Vital Signs: Vital Signs - 24 hr 03/31/17 03/31/17 03/31/17 18:42 18:52 20:40 Temperature 37.0 C Heart Rate Heart Rate [ 75 73 Monitoring electrodes] Respiratory 28 H 18 Rate Blood Pressure 120/69 [Right Brachial artery] O2 Saturation 88 L 90 L 95 03/31/17 03/31/17 03/31/17 21:00 22:00 23:00 Temperature Heart Rate Heart Rate [ 73 78 67 Monitoring electrodes] Respiratory 28 H 21 21 Rate Blood Pressure 113/69 133/82 H 101/51 L [Right Brachial artery] O2 Saturation 94 94 96 04/01/17 04/01/17 04/01/17 00:00 01:00 02:00 Temperature 37.6 C H Heart Rate Heart Rate [ 68 67 66 Monitoring electrodes] Respiratory 28 H 28 H Rate Blood Pressure 112/91 H 117/59 L 114/56 L [Right Brachial artery] O2 Saturation 95 97 97 04/01/17 04/01/17 04/01/17 03:00 04:00 05:00 Temperature 37.6 C H Heart Rate Heart Rate [ 67 72 67 Monitoring electrodes] Respiratory 24 Rate Blood Pressure 118/66 127/57 L 114/60 [Right Brachial artery] O2 Saturation 97 98 96 04/01/17 04/01/17 04/01/17 06:00 07:00 08:00 Temperature Heart Rate Heart Rate [ 75 71 68 Monitoring electrodes] Respiratory 23 26 H 24 Rate Blood Pressure 119/64 119/56 L 97/64 [Right Brachial artery] O2 Saturation 96 95 98 04/01/17 04/01/17 04/01/17 09:15 09:50 10:12 Temperature 36.9 C Heart Rate 76 Heart Rate [ 77 74 Monitoring electrodes] Respiratory 24 19 22 Rate Blood Pressure 134/64 H 108/56 L [Right Brachial artery] O2 Saturation 97 96 04/01/17 04/01/17 04/01/17 11:00 12:00 13:00 Temperature 98.6 C H Heart Rate Heart Rate [ 74 79 74 Monitoring electrodes] Respiratory 23 22 23 Rate Blood Pressure 108/56 L 157/85 H 121/58 L [Right Brachial artery] O2 Saturation 96 99 93 04/01/17 04/01/17 04/01/17 14:27 15:00 16:00 Temperature Heart Rate Heart Rate [ 73 73 69 Monitoring electrodes] Respiratory 22 28 H 24 Rate Blood Pressure 135/74 H 141/67 H 120/63 [Right Brachial artery] O2 Saturation 94 94 95 04/01/17 04/01/17 17:00 18:00 Temperature 37.0 C Heart Rate Heart Rate [ 70 75 Monitoring electrodes] Respiratory 20 25 H Rate Blood Pressure 142/71 H 149/63 H [Right Brachial artery] O2 Saturation 97 91 L Oxygen O2 Source Oxymizer I&O (Last 24 Hrs): Intake and Output Totals x24h 03/30/17 03/31/17 04/01/17 23:59 23:59 23:59 Intake Total 100 3060 2170 Output Total 0 665 1269 Balance 100 2395 901 General: Alert, Oriented x3 HEENT: Mucous membr. moist/pink, Other (On oximizer) Neck: Supple, No JVD Neuro: CN 2-12 Grossly Intact Cardiovascular: Regular rate, No murmurs Respiratory: Other (Doiminished, no rales or wheezing) Abdomen: Soft Extremities: No edema - Results Results: Laboratory Results WBC 14.8 x10^3/uL (4.8-10.8) H 03/31/17 04:38 RBC 3.55 10^6/uL (4.70-6.10) L 03/31/17 04:38 Hgb 10.7 g/dL (14.0-18.0) L 03/31/17 04:38 Hct 33.7 % (42.0-52.0) L 03/31/17 04:38 MCV 94.8 fL (80.0-94.0) H 03/31/17 04:38 MCH 30.0 pg (27.0-31.0) 03/31/17 04:38 MCHC 31.7 g/dL (32.0-36.0) L 03/31/17 04:38 RDW 15.6 % (12.0-15.0) H 03/31/17 04:38 Plt Count 166 10^3/uL (130-450) 03/31/17 04:38 MPV 7.6 fL (7.4-11.4) 03/31/17 04:38 Neut # 14.0 10^3/uL (1.5-6.6) H 03/31/17 04:38 Lymph # 0.2 10^3/uL (1.5-3.5) L 03/31/17 04:38 Reynolds # 0.6 10^3/uL (0.0-1.0) 03/31/17 04:38 Eos # 0.0 10^3/uL (0.0-0.7) 03/31/17 04:38 Baso # 0.0 10^3/uL (0.0-0.1) 03/31/17 04:38 Absolute Nucleated RBC 0.00 x10^3/uL 03/31/17 04:38 Nucleated RBC % 0.0 /100WBC 03/31/17 04:38 Manual Slide Review Indicated 03/30/17 20:48 Platelet Estimate NORMAL (130-450,000) (NORMAL) 03/30/17 20:48 Platelet Morphology NORMAL APPEARANCE (NORMAL) 03/30/17 20:48 RBC Morph Micro Appear 1+ HYPOCHROMASIA (NORMAL) 03/30/17 20:48 Bld Gas Analysis Time 1006 03/31/17 09:55 Sample Site RIGHT RADIAL 03/31/17 09:55 ABG pH 7.34 (7.35-7.45) L 03/31/17 09:55 ABG pCO2 55 mmHg (34-45) H 03/31/17 09:55 ABG pO2 47 mmHg (80-100) L* 03/31/17 09:55 ABG HCO3 29.1 mmol/L (22.0-26.0) H 03/31/17 09:55 ABG Total CO2 30.8 MMOL/L (21.0-29.0) H 03/31/17 09:55 ABG O2 Saturation 83 % (94-98) L* 03/31/17 09:55 ABG Base Excess 2.5 mmol/L (-2.0-3.0) 03/31/17 09:55 James Test POSITIVE 03/31/17 09:55 O2 Delivery Device NASAL CANNULA 03/31/17 09:55 FiO2 100.00 03/31/17 01:57 EPAP 5 cmH2O 03/31/17 01:57 IPAP 12 cmH2O 03/31/17 01:57 Sodium 143 mmol/L (135-145) 03/31/17 04:38 Potassium 3.6 mmol/L (3.5-5.0) 03/31/17 04:38 Chloride 105 mmol/L (101-111) 03/31/17 04:38 Carbon Dioxide 30 mmol/L (21-32) 03/31/17 04:38 Anion Gap 8.0 (6-13) 03/31/17 04:38 BUN 57 mg/dL (6-20) H 03/31/17 04:38 Creatinine 1.9 mg/dL (0.6-1.2) H 03/31/17 04:38 Estimated GFR (MDRD) 34 (>89) L 03/31/17 04:38 Glucose 124 mg/dL (70-100) H 03/31/17 04:38 Glycated Hemoglobin 6.8 % (4.6-6.2) H 03/31/17 04:38 Estim Average Glucose 148 (70-100) H 03/31/17 04:38 Calcium 8.7 mg/dL (8.5-10.3) 03/31/17 04:38 Total Bilirubin 0.7 mg/dL (0.2-1.0) 03/30/17 20:48 AST 15 IU/L (10-42) 03/30/17 20:48 ALT < 10 IU/L (10-60) L 03/30/17 20:48 Alkaline Phosphatase 60 IU/L (42-121) 03/30/17 20:48 Total Protein 7.7 g/dL (6.7-8.2) 03/30/17 20:48 Albumin 3.3 g/dL (3.2-5.5) 03/30/17 20:48 Globulin 4.4 g/dL (2.1-4.2) H 03/30/17 20:48 Albumin/Globulin Ratio 0.8 (1.0-2.2) L 03/30/17 20:48 Lipase 22 U/L (22-51) 03/30/17 20:48 - Procedures Procedures: Procedures ASSISTANCE WITH RESPIRATORY VENTILATION, 24-96 HRS, CPAP (03/23/15) DRAINAGE OF RIGHT KNEE JOINT, PERCUTANEOUS APPROACH, DIAGN (02/15/17) INTRODUCTION OF ANTI-INFLAMMATORY INTO JOINTS, PERC APPROACH (02/15/17)
[2017-04-01] MEDS: INSULIN GLARGINE 300 UNIT/3 ML PEN SUBQ SCH (21:41)
[2017-04-01 22:04] LABS: VANCOMYCIN,TROUGH 11.4 ug/mL (5.0-15.0)
[2017-04-01] MEDS: levoFLOXacin 750 MG/150 ML 750 MG/150 ML BAG IV SCH (22:16)
[2017-04-01] MEDS: VANCOMYCIN INJ 1 GM, VANCOMYCIN INJ 500 MG in SODIUM CHLORIDE 0.9% 500 ML IV SCH (22:17)
[2017-04-02] MEDS: SODIUM CHLORIDE FLUSH 0.9% 10 ML SYRINGE IVP PRN ×4 (03:25→16:38)
[2017-04-02] MEDS: AZTREONAM 2 GM in SODIUM CHLORIDE 0.9% MINIBAG 100 ML IV SCH ×4 (03:25→21:45)
[2017-04-02 05:49] LABS: CALCIUM 8.6 mg/dL (8.5-10.3); CREATININE 1.6 mg/dL (0.6-1.2)
[2017-04-02] MEDS: FUROSEMIDE 20 MG/2 ML VIAL IVP SCH ×3 (05:49→16:38)
[2017-04-02] MEDS: SODIUM CHLORIDE FLUSH 0.9% 10 ML SYRINGE IVP SCH ×4 (05:49→21:42)
[2017-04-02 05:55] LABS: BASOPHILS % (AUTO) 0.2 %; EOSINOPHILS # (AUTO) 0.1 10^3/uL (0.0-0.7); HGB - HEMOGLOBIN 9.2 g/dL (14.0-18.0); LYMPHOCYTES # (AUTO) 0.4 10^3/uL (1.5-3.5); LYMPHOCYTES % (AUTO) 5.3 %; MEAN CORPUSCULAR HEMOGLOBIN 30.2 pg (27.0-31.0); MEAN CORPUSCULAR HGB CONC 32.4 g/dL (32.0-36.0); MEAN CORPUSCULAR VOLUME 93.2 fL (80.0-94.0); MEAN PLATELET VOLUME 7.6 fL (7.4-11.4); MONOCYTES # (AUTO) 0.4 10^3/uL (0.0-1.0); MONOCYTES % (AUTO) 5.4 %; NEUTROPHILS # (AUTO) 6.6 10^3/uL (1.5-6.6); NEUTROPHILS % (AUTO) 87.1 %; PLT - PLATELET COUNT 149 10^3/uL (130-450); RED BLOOD COUNT 3.06 10^6/uL (4.70-6.10); RED CELL DISTRIBUTION WIDTH 15.4 % (12.0-15.0); WHITE BLOOD COUNT 7.6 x10^3/uL (4.8-10.8)
--- NOTE | 2017-04-02 08:41 | HISTORY & PHYSICAL EXAMINATION ---
DATE OF SERVICE: 03/30/2017 Physician: Yessenia Nolen MD PRIMARY CARE PROVIDER: Poli Ramires MD. ADMITTING PROVIDER: Yessenia Nolen MD CHIEF COMPLAINT: Acute deterioration with lack of responsiveness and increased shortness of breath over 1 hour in a patient who is chronically ill. The patient is an unfortunate 86-year-old gentleman who has had a functional decline over the last several months. He lives with his son and [id number]. He has chronic pain from spinal stenosis, and also has diabetes mellitus, COPD, severe diastolic congestive heart failure. He was hospitalized at [facility] 02/05/2017 through 02/19/2017 for pneumonia. He had worsening of his diabetes, worsening of his diastolic congestive heart failure, a right knee effusion. This resulted in even further functional decline in this elderly gentleman with multiple comorbidities. He went to [facility] for concentration on improving his functional status back to baseline, with hope that he could return to home in his baseline status. He has been home since about the week before [place]. He has been working with Home Health and outpatient physical therapy, but it has been difficult for him because of his chronic back pain and his right knee pain. Palliative Care notes that both the son and [id number]-[id number] recognize his functional cognitive decline and his increasing frailty, but they were hoping that he would improve. The patient himself has poor insight into how sick he is, and perseverates on his inability to sleep. His pain has been managed by changing him from oxycodone p.r.n. to adding fentanyl 12 mg patch on 02/20/2017. That has been increased to 37.5 mg according to his aswlzddr-st-uso, who is the medical home care assistant unit nurse. The fentanyl patch replaces MS Contin 15 mg twice a day. This is due to his kidney status. He is continued on oxycodone p.r.n. He had a stage II decubitus that has been improving. He has anxiety and is easily distressed and very much expressing grief with regard to his loss of independence and continued to be at a high risk for aspiration. He was [facility] by Dr. Ramires [facility] the [facility], and was also seen in the office for medication review 03/14/2017. At that point in time, he has been home for a week. He was actually feeling quite well. Medications were reviewed. Blood sugars were reviewed. Their biggest concern was his ongoing weakness and the need to get moving more and get his strength back. Today, they said that he was in his usual health. They did not feel that there was any witnessed aspiration. No change in his status. There was no antecedent fever, chills, etc. They talked to him around 6 in the evening and went to go to some other things within the house. Again, he lives with him. When they came back to check on him at 7 o'clock, an hour later, he had deteriorated. He was almost unresponsive, gasping for air, and they brought him to the emergency room. While they described fever at the house, in the emergency room, his temperature was 36.7. His chest x-ray shows diffuse alveolar opacified patient on both lungs. He is hypoxic and hypotensive. His white blood count is 15.3. He is a DO NOT RESUSCITATE, and they want judicious treatment used in this patient. Intubation is not appropriate they feel. While he did have pinpoint pupils, and Dr. Lewis felt that fentanyl was part of the problem, they did not want Narcan given initially. They felt that the Narcan patch was done 3 days ago. That it should be almost down to nothing today and he should not be having any response to the opiates at this time. As such, BiPAP and antibiotics were given to the patient. His eyes are now open, and he does look at you when you speak to him, which is an improvement from his unconscious state before, but he is still not speaking or answering questions. He is now transferred to the ICU for antibiotics, continued BiPAP. I have spoken directly to his nhtlkqku-gt-vtj, Sepideh hobbs, well as his son. They both firmly states that he is a DO NOT RESUSCITATE, and if he makes it through this course of antibiotics, that is great. If not, not to be any more aggressive than we are right now. PAST MEDICAL HISTORY 1. Chronic back pain and chronic spinal stenosis resulting in the patient being in a wheelchair. 2. Severe diastolic congestive heart failure with pulmonary hypertension. Echocardiogram noted in 2017 shows an ejection fraction that is maintained at 50% to 55% of normal. 3. Chronic kidney disease, stage 3. 4. Hypertension. 5. Uncontrolled type 2 diabetes mellitus, with complications and with long- term use of insulin. 6. Gastroesophageal reflux disease. 7. Recurrent esophageal stenosis, with dilation done at [facility]. 8. Osteoarthritis of multiple joints, status post knee replacement. 9. Benign prostatic hypertrophy. 10. Chronic constipation. 11. History of ascending aortic aneurysm. 12. History of anemia that is both iron deficient as well as anemia of chronic disease. 13. History of tonsillectomy. ALLERGIES: HE IS ALLERGIC TO PENICILLIN. MEDICATIONS 1. Tylenol 650 mg every 4 hours as needed. 2. Oxycodone 5 mg tablet, 1 to 2 tablets every 4-6 hours as needed. 3. Elavil 10 mg at night. 4. Carvedilol 25 mg p.o. b.i.d. 5. Colace 100 mg p.o. b.i.d. 6. Fentanyl patch 37.5 topically every 3 days. This is per Sepideh. The medical record has 25 mg currently, but she states he is on 37.5. 7. Ferrous gluconate 324 mg daily. 8. Folic acid 1 mg daily. 9. Lasix 80 mg daily. 10. Hydralazine 50 mg p.o. b.i.d. 11. Lidoderm patch 5% apply topically to affected area as needed once a day. 12. Protonix 40 mg p.o. b.i.d. 13. MiraLax 17 grams p.o. daily. 14. Simvastatin 20 mg p.o. at bedtime. 15. Flomax 0.4 mg p.o. b.i.d. 16. Lantus 10 units subcutaneous at breakfast. SOCIAL HISTORY: He was born and raised in the [facility]. Lost his of 60 years in 2013 to pancreatic cancer. He lives with his son and wqjkklny-ue-svh, except for the short time he was 18 days at [facility]. His son is firm in stating that his dad will never return there. The patient was a nonsmoker, has no history of recreational substance abuse. FAMILY HISTORY: With parents who of old age. No sibling history noted, and his son is healthy. REVIEW OF SYSTEMS (FROM SON AND [id number]) CONSTITUTIONAL: He has developed increasing frailty with forgetfulness, decreased mobility, minimal weight changes with a severe deterioration in function over the last 9 months. HEENT: ENT without any recent vision changes. No glaucoma or cataracts. CARDIOVASCULAR: He has been progressively worse. He is getting more short of breath, weaker. Decreasing mobility, but the family cannot tell if it is his heart, or just the side effects of the pneumonia, especially in the last 2 months. There has been no description of chest pain or orthopnea. RESPIRATORY: Increasing shortness of breath that was very acute over the last few hours. Again noted around 6 p.m., but no witnessed aspiration. No antecedent cough, fever, chills, sore throat. GASTROINTESTINAL: Always constipated. No diarrhea. No change in bowel habits. No emesis. GENITOURINARY: Has frequency, urgency, decreased stream because of prostatism that is unchanged. MUSCULOSKELETAL: Bitter, bitter chronic back pain, always described as a 12/10 even with his increasing opiate use. SKIN: Easily bruised because of his medications they say, but no new lesions or rashes. NEUROLOGIC: No history of strokes or seizures. Complains bitterly of insomnia for the last 2 years. That is his main concern, that and his constipation with poor insight into his overall illness and frailty. He does grieve his loss of independence. Memory loss has been occurring more and more. Cannot tell if it is attributed to his opiate use that has escalated over the last month or just due to senescence. PHYSICAL EXAMINATION GENERAL: He was seen in the emergency room on BiPAP after receiving treatment from Dr. Lewis. He is sitting upright in the bed, face mask on, Eyes are open and he does look at me when I call his name, and he looks at his son, but there is no direct response. HEAD AND NECK: Shows him to be a well-groomed, well-nourished, obese, elderly man with a good head of hair on him. Pupils that are pinpoint and minimally responsive. Sclerae nonicteric. Mouth is open as the mask is on him. Face is slack, sluggish. Sclerae nonicteric. Oral mucosa dry. Neck is obese, difficulty to assess for JVD, but it is supple. No goiter. LUNGS: Coarse upper airway tubular breath sounds. Diffuse crackles as well bilaterally long-term up both lung huber. HEART: PMI is not palpable by me. He has distant cardiac tones with a regular rate and rhythm. He does have a right ventricular lift. ABDOMEN: Obese, soft, nontender. The pannus is protuberant, but it may be a function of how he is sitting up in bed in the ER. He has quiet bowel sounds. Nontender. No rebound. EXTREMITIES: The legs have edema. SKIN: At this time, I am unable to roll him over to assess his decubitus. LABORATORY DATA: Sodium 143, potassium 3.5, BUN 54, creatinine 1.6. On 2016, he was 86 and 1.8. On 03/13/2017 56 and 1.6. Random glucose is 118. His A1c was 7.4. White cell count is 15.3, hemoglobin 11.3, hematocrit 34.2, platelets 196. With his stay in January he was thrombocytopenic at anywhere from 98-126. On a blood gas on 03/25/2017 he was on a nasal cannula of 3.5 liters. His pH was 7.31, pCO2 of 55, pO2 of 76. Base excess 0.4. Repeat blood gas has not been done yet. IMAGING: Chest x-ray today when compared to 02/16/2017 shows mild cardiac enlargement, diffuse interstitial alveolar opacities throughout both lungs, suspicious for edema or infiltrates. Small effusions, no pneumothorax. ASSESSMENT AND PLAN 1. Acute respiratory failure with hypoxia. Cause is number 2 and well as number 3. At this time, he is placed on BiPAP and in the ICU. Family is very clear about how far our care should go. They want to see if he recovers just using BiPAP and simple antibiotics. They feel in the last 1-2 hours in the emergency room he has turned the corner "a little bit." 2. Pneumonia. He is not known to have left-sided congestive heart failure resulting in the diffuse opacities. He already has a history of aspiration pneumonia, but the diffuse pattern on chest xray goes against the diagnosis of aspiration. Nevertheless, because he may have had an interval change, we will check echo to make sure this is not CHF that we are seeing. We will still go ahead and treat empirically for pneumonia. He is allergic to penicillin. Because he has been hospitalized recently in a prison recently, we will treat is a healthcare-associated pneumonia. Blood cultures have been done, and we will adjust as needed. Give aztreonam and Levaquin. 3. Pulmonary hypertension. Quite severe on last echocardiogram. Diurese with Lasix IV. Again, repeat echo to reassess function. 4. Type 2 diabetes mellitus, uncontrolled, with long-term use of insulin and with complications. Resume Lantus 10 units subcutaneous. Add sliding scale high dose and see how he does. 5. Hypertension history. In the emergency room he is has hypotension associated with his illness. He is 93/47 at this point in time. We will hold off on his Minipress, prazosin, and Flomax at this time. 6. History of chronic constipation. We will assess when his last bowel movement was. We will not aim for daily bowel movement. We will aim for a bowel movement every 2-3 days. We will use bowel protocol. 7. Chronic pain. His qwyahsbn-yu-cxc says that if we need to use the Narcan to reverse the effects of the fentanyl she is willing to consider it, but because he has had a fentanyl patch for 3 days and its effect should be waning, we will hold off on that. We will see if he wakes up enough to then give him as needed pain medicine. At this time, because of his respiratory failure, I hesitate to increase more opiates. 8. DO NOT RESUSCITATE/DO NOT INTUBATE status. 9. Deep venous thrombosis prophylaxis will be SCDs and DIRK hernández. Because of his thrombocytopenia last visit, I will hold off on Lovenox. 10. History of decubiti. Will have RN's strip him and roll him for me to assess his skin once he gets to the ICU. TD: 04/01/2017 08:20 OSWALD
[2017-04-02] MEDS: INSULIN ASPART 300 UNIT/3 ML PEN SUBQ SCH ×4 (09:17→21:41)
[2017-04-02] MEDS: SACCHAROMYCES BOULARDII 250 MG CAPSULE PO SCH ×2 (09:18→16:37)
[2017-04-02] MEDS ORDERED: POLYETHYLENE GLYCOL 3350 17 GM PACKET PO SCH (12:00)
[2017-04-02] MEDS ORDERED: DOCUSATE SODIUM 250 MG CAPSULE PO SCH (12:00)
[2017-04-02] MEDS: ACETAMINOPHEN 325 MG TABLET PO PRN (16:37)
--- NOTE | 2017-04-02 18:34 | PROVIDER PROGRESS NOTE ---
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 severe pulmonary HTN Will check Fe, TIBC and Ferritin given low H/H in spite of Cor Pulmonale (2) HCAP (healthcare-associated pneumonia) Assessment/Plan: Continue antibiotics (3) DM2 (diabetes mellitus, type 2) Assessment/Plan: Continue meds and diet (4) PVD (peripheral vascular disease) Assessment/Plan: Echo shows ascending aortic aneurysm of 5.2 cm At this advanced age and with severe pulmonary HTN, he is not a candidate for thoracic surgery repair Continue BP control - Current Meds Current Meds: Current Medications Generic Name Dose Route Start Last Admin Trade Name Freq PRN Reason Stop Dose Admin Acetaminophen 650 mg 03/30/17 21:42 04/02/17 16:37 Tylenol PO 650 mg Q4HR PRN Administration Pain 1 to 4 Albuterol 2.5 mg 03/30/17 21:42 04/01/17 09:50 INH 2.5 mg Q4HR PRN Administration Wheezing Furosemide 20 mg 04/01/17 06:00 04/02/17 16:38 Lasix Inj 20mg Vial IVP 20 mg BIDDIURETIC ASHLY Administration Vancomycin HCl 1 gm/ 500 mls @ 250 mls/hr 03/31/17 22:00 04/02/17 00:39 Vancomycin HCl 500 mg/ Sodium IV Infused Chloride Q24H ASHLY Infusion Levofloxacin 750 mg in 150 mls @ 100 mls/hr 04/01/17 22:00 04/02/17 00:39 Levaquin 750 Mg/150 Ml IV Infused Q48H ASHLY Infusion Aztreonam 2 gm/ Sodium 100 mls @ 100 mls/hr 03/31/17 15:00 04/02/17 18:18 Chloride IV Infused Q6H ASHLY Infusion Insulin Aspart 1 - 5 unit 03/31/17 17:00 04/02/17 18:19 Novolog SUBQ 1 unit 0800,1200,1700,2100 ASHLY Administration Protocol Insulin Glargine 10 unit 03/31/17 21:00 04/01/17 21:41 Lantus Solostar SUBQ 10 unit QPM ASHLY Administration Saccharomyces Boulardii 250 mg 03/31/17 16:00 04/02/17 16:37 Florastor PO 250 mg BIDWM ASHLY Administration Sodium Chloride 10 ml 03/30/17 22:00 04/02/17 18:18 Normal Saline Flush 0.9% IVP 10 ml Q8HR ASHLY Administration Sodium Chloride 10 ml 03/30/17 21:42 04/02/17 16:38 Normal Saline Flush 0.9% IVP 10 ml PRN PRN Administration NEEDED PER PROVIDER ORDERS - Lab Result Fish Bone Diagrams: 04/02/17 05:16 04/02/17 05:16 - Additional Planning My Orders: My Active Orders 04/02/17 Chest 1 View X-Ray [XR] Routine 04/02/17 07:00 Echo Transthoracic Complete [ECHO] Routine 04/03/17 05:00 IRON TIBC PANEL [CHEM] Routine 04/04/17 05:00 FERRITIN [IAI] Routine Objective Vital Signs: Vital Signs - 24 hr 04/01/17 04/01/17 04/01/17 18:37 19:15 23:59 Temperature 36.7 C 36.8 C Heart Rate 72 Heart Rate [ 77 70 Brachial] Heart Rate [ Supine] Respiratory 20 22 18 Rate Blood Pressure 131/66 H 144/51 H [Right Brachial artery] Blood Pressure [Supine] O2 Saturation 91 L 95 04/02/17 04/02/17 04/02/17 08:06 11:45 15:35 Temperature 36.5 C 36.9 C Heart Rate Heart Rate [ 70 71 Brachial] Heart Rate [ 68 Supine] Respiratory 20 20 Rate Blood Pressure 143/68 H 158/67 H [Right Brachial artery] Blood Pressure 148/63 H [Supine] O2 Saturation 97 94 Oxygen O2 Source Oxymask I&O (Last 24 Hrs): Intake and Output Totals x24h 03/31/17 04/01/17 04/02/17 23:59 23:59 23:59 Intake Total 3060 2270 2104.5 Output Total 665 1269 1950 Balance 2395 1001 154.5 - Results Results: Laboratory Results WBC 7.6 x10^3/uL (4.8-10.8) 04/02/17 05:16 RBC 3.06 10^6/uL (4.70-6.10) L 04/02/17 05:16 Hgb 9.2 g/dL (14.0-18.0) L 04/02/17 05:16 Hct 28.5 % (42.0-52.0) L 04/02/17 05:16 MCV 93.2 fL (80.0-94.0) 04/02/17 05:16 MCH 30.2 pg (27.0-31.0) 04/02/17 05:16 MCHC 32.4 g/dL (32.0-36.0) 04/02/17 05:16 RDW 15.4 % (12.0-15.0) H 04/02/17 05:16 Plt Count 149 10^3/uL (130-450) 04/02/17 05:16 MPV 7.6 fL (7.4-11.4) 04/02/17 05:16 Neut # 6.6 10^3/uL (1.5-6.6) 04/02/17 05:16 Lymph # 0.4 10^3/uL (1.5-3.5) L 04/02/17 05:16 Waldo # 0.4 10^3/uL (0.0-1.0) 04/02/17 05:16 Eos # 0.1 10^3/uL (0.0-0.7) 04/02/17 05:16 Baso # 0.0 10^3/uL (0.0-0.1) 04/02/17 05:16 Absolute Nucleated RBC 0.02 x10^3/uL 04/02/17 05:16 Nucleated RBC % 0.2 /100WBC 04/02/17 05:16 Manual Slide Review Indicated 03/30/17 20:48 Platelet Estimate NORMAL (130-450,000) (NORMAL) 03/30/17 20:48 Platelet Morphology NORMAL APPEARANCE (NORMAL) 03/30/17 20:48 RBC Morph Micro Appear 1+ HYPOCHROMASIA (NORMAL) 03/30/17 20:48 Bld Gas Analysis Time 1006 03/31/17 09:55 Sample Site RIGHT RADIAL 03/31/17 09:55 ABG pH 7.34 (7.35-7.45) L 03/31/17 09:55 ABG pCO2 55 mmHg (34-45) H 03/31/17 09:55 ABG pO2 47 mmHg (80-100) L* 03/31/17 09:55 ABG HCO3 29.1 mmol/L (22.0-26.0) H 03/31/17 09:55 ABG Total CO2 30.8 MMOL/L (21.0-29.0) H 03/31/17 09:55 ABG O2 Saturation 83 % (94-98) L* 03/31/17 09:55 ABG Base Excess 2.5 mmol/L (-2.0-3.0) 03/31/17 09:55 James Test POSITIVE 03/31/17 09:55 O2 Delivery Device NASAL CANNULA 03/31/17 09:55 FiO2 100.00 03/31/17 01:57 EPAP 5 cmH2O 03/31/17 01:57 IPAP 12 cmH2O 03/31/17 01:57 Sodium 141 mmol/L (135-145) 04/02/17 05:16 Potassium 3.4 mmol/L (3.5-5.0) L 04/02/17 05:16 Chloride 105 mmol/L (101-111) 04/02/17 05:16 Carbon Dioxide 29 mmol/L (21-32) 04/02/17 05:16 Anion Gap 7.0 (6-13) 04/02/17 05:16 BUN 63 mg/dL (6-20) H 04/02/17 05:16 Creatinine 1.6 mg/dL (0.6-1.2) H 04/02/17 05:16 Estimated GFR (MDRD) 41 (>89) L 04/02/17 05:16 Glucose 118 mg/dL (70-100) H 04/02/17 05:16 Glycated Hemoglobin 6.8 % (4.6-6.2) H 03/31/17 04:38 Estim Average Glucose 148 (70-100) H 03/31/17 04:38 Calcium 8.6 mg/dL (8.5-10.3) 04/02/17 05:16 Magnesium 2.0 mg/dL (1.7-2.8) 04/02/17 05:16 Total Bilirubin 0.7 mg/dL (0.2-1.0) 03/30/17 20:48 AST 15 IU/L (10-42) 03/30/17 20:48 ALT < 10 IU/L (10-60) L 03/30/17 20:48 Alkaline Phosphatase 60 IU/L (42-121) 03/30/17 20:48 Total Protein 7.7 g/dL (6.7-8.2) 03/30/17 20:48 Albumin 3.3 g/dL (3.2-5.5) 03/30/17 20:48 Globulin 4.4 g/dL (2.1-4.2) H 03/30/17 20:48 Albumin/Globulin Ratio 0.8 (1.0-2.2) L 03/30/17 20:48 Lipase 22 U/L (22-51) 03/30/17 20:48 Last Dose Date 04/01/17 04/01/17 21:25 Last Dose Time 01:00 04/01/17 21:25 Vancomycin Trough 11.4 ug/mL (5.0-15.0) 04/01/17 21:25 - Procedures Procedures: Procedures ASSISTANCE WITH RESPIRATORY VENTILATION, 24-96 HRS, CPAP (03/23/15) DRAINAGE OF RIGHT KNEE JOINT, PERCUTANEOUS APPROACH, DIAGN (02/15/17) INTRODUCTION OF ANTI-INFLAMMATORY INTO JOINTS, PERC APPROACH (02/15/17)
--- NOTE | 2017-04-02 21:23 | XRAY Preliminary Report ---
Exam: XR CHEST 1 VIEW X-RAY IMPRESSION: Migrating pulmonary opacities in the right hemithorax may reflect evolving pneumonia or p ulmonary edema. [facility] SITE ID: [id number]
--- NOTE | 2017-04-02 21:23 | XRAY Report ---
EXAM: CHEST RADIOGRAPHY EXAM DATE: 04/02/2017 06:59 PM. CLINICAL HISTORY: F/u pneumonia. COMPARISON: 03/30/2017. TECHNIQUE: 1 view. FINDINGS: Lungs/Pleura: There is increased density at the right lung base obscuring the right costophrenic angl e. There is partial clearing of airspace disease in the right mid lung. Left lung airspace disease is unchanged. No pneumothorax. Mediastinum: Within exam limitations, the cardiomediastinal contour is normal. Other: None. IMPRESSION: Migrating pulmonary opacities in the right hemithorax may reflect evolving pneumonia or p ulmonary edema. [facility] Referring Provider Line: [phone] SITE ID: [id number]
[2017-04-02] MEDS: INSULIN GLARGINE 300 UNIT/3 ML PEN SUBQ SCH (21:41)
[2017-04-02] MEDS: VANCOMYCIN INJ 1 GM, VANCOMYCIN INJ 500 MG in SODIUM CHLORIDE 0.9% 500 ML IV SCH (22:50)
[2017-04-03] MEDS: SODIUM CHLORIDE FLUSH 0.9% 10 ML SYRINGE IVP PRN ×5 (01:16→09:53)
[2017-04-03] MEDS: AZTREONAM 2 GM in SODIUM CHLORIDE 0.9% MINIBAG 100 ML IV SCH ×4 (03:18→21:35)
[2017-04-03] MEDS: FUROSEMIDE 20 MG/2 ML VIAL IVP SCH ×2 (05:42→15:04)
[2017-04-03 06:33] LABS: % IRON SATURATION 20 % (20-50); IRON 37 ug/dL (45-182); TOTAL IRON BINDING CAPACITY 186 ug/dL (250-450); TRANSFERRIN 133 mg/dL (180-329)
[2017-04-03] MEDS ORDERED: BISACODYL 10 MG SUPP PR ONE (07:49)
[2017-04-03] MEDS: SACCHAROMYCES BOULARDII 250 MG CAPSULE PO SCH ×2 (08:00→16:57)
[2017-04-03] MEDS: ACETAMINOPHEN 325 MG TABLET PO PRN ×2 (08:00→16:56)
[2017-04-03] MEDS: POLYETHYLENE GLYCOL 3350 17 GM PACKET PO SCH (08:11)
[2017-04-03] MEDS: DOCUSATE SODIUM 250 MG CAPSULE PO SCH (08:11)
[2017-04-03] MEDS ORDERED: fentaNYL 25 MCG PATCH TOP SCH (09:00)
--- NOTE | 2017-04-03 09:20 | Discharge Plan ---
Discharge Plan Disposition: Home, Self Care Condition: Stable Prescriptions: fentaNYL 12 MCG PATCH [Duragesic 12mcg patch] 25 mcg TOP Q3D #2 patch Ferrous Sulfate 325 mg PO BID #60 tablet Sulfamethox/Trimeth 800/160 [Bactrim Ds 800/160] 1 each PO BID #14 tablet Diet: Diabetic Activity Restrictions: Activity as Tolerated Shower Restrictions: No Driving Restrictions: Yes Assistance Devices: Walker Weight Bearing: Full Weight Additional Instructions or Follow Up instructions: See your PCP in 1-2 weeks for Follow up Resume all of your medications as taken before this hospitalization Take the antibiotic tablets til done Start Iron supplement orally daily Home Health has been ordered for you. Participate in PT and OT please. No Smoking: If you smoke, Please STOP! Call for help. Follow-up with: JOSI CARTER MD [Primary Care Provider] -
[2017-04-03] MEDS: INSULIN ASPART 300 UNIT/3 ML PEN SUBQ SCH ×4 (10:06→21:32)
[2017-04-03] MEDS: FERROUS SULFATE 325 MG TABLET PO SCH ×2 (12:36→16:56)
[2017-04-03] MEDS ORDERED: oxyCODONE ER 10 MG TABLET PO PRN (12:59)
--- NOTE | 2017-04-03 14:24 | PROVIDER PROGRESS NOTE ---
Assessment/Plan - Problem List (1) HCAP (healthcare-associated pneumonia) Assessment/Plan: I had a long discussion with the family about his problem list/ diagnoses: In January he grew out fecalis organism from respiratory specimen. This admission, there is a different Staph organism is growing. His CXR shows some improvement, but not full clearing of pneumonia yet. The family is concerned that he aspirates and a swallowing eval was ordered by Dr Perez, but not yet done. I called Speech Therapy personally to request the test. Will recheck CXR, continue iv antibiotics and await swallowing eval. (2) Cor pulmonale Assessment/Plan: witth severe pulmonary HTN found on Echo. This was also discussed with son and [id number] today. Etiologies may be exposure to airborne wood byproducts when he was employed since he never smoked , frequent pneumonias, or Pulmonary HTN from a variety of causes. He needs PFTs (as outpt) and a possible [employer] evaluation for chcf management with possible inhalers and steroids (3) PVD (peripheral vascular disease) Assessment/Plan: This was discussed with family: His aorta measured 5.0 cm several years ago and he was already deemed not a surgical candidate then, per Sepideh his [id number]. This needs outpt F/U and good BP and cholesterol control (4) DM2 (diabetes mellitus, type 2) Assessment/Plan: Continue diet and med coverages. - Current Meds Current Meds: Current Medications Generic Name Dose Route Start Last Admin Trade Name Freq PRN Reason Stop Dose Admin Acetaminophen 650 mg 03/30/17 21:42 04/03/17 08:00 Tylenol PO 650 mg Q4HR PRN Administration Pain 1 to 4 Albuterol 2.5 mg 03/30/17 21:42 04/01/17 09:50 INH 2.5 mg Q4HR PRN Administration Wheezing Docusate Sodium 250 - 500 mg 04/03/17 09:00 04/03/17 08:11 Colace 250mg Capsule PO Not Given DAILY ASHLY Fentanyl 1 patch 04/03/17 09:00 04/03/17 10:03 Duragesic TOP 1 patch Q3D ASHLY Administration Ferrous Sulfate 325 mg 04/03/17 10:00 04/03/17 12:36 Feosol PO 325 mg BIDWM ASHLY Administration Furosemide 20 mg 04/01/17 06:00 04/03/17 05:42 Lasix Inj 20mg Vial IVP 20 mg BIDDIURETIC ASHLY Administration Vancomycin HCl 1 gm/ 500 mls @ 250 mls/hr 03/31/17 22:00 04/03/17 01:19 Vancomycin HCl 500 mg/ Sodium IV Infused Chloride Q24H ASHLY Infusion Levofloxacin 750 mg in 150 mls @ 100 mls/hr 04/01/17 22:00 04/02/17 00:39 Levaquin 750 Mg/150 Ml IV Infused Q48H ASHLY Infusion Aztreonam 2 gm/ Sodium 100 mls @ 100 mls/hr 03/31/17 15:00 04/03/17 10:55 Chloride IV Infused Q6H ASHLY Infusion Insulin Aspart 1 - 5 unit 03/31/17 17:00 04/03/17 12:37 Novolog SUBQ 1 unit 0800,1200,1700,2100 ASHLY Administration Protocol Insulin Glargine 10 unit 03/31/17 21:00 04/02/17 21:41 Lantus Solostar SUBQ 10 unit QPM ASHLY Administration Oxycodone HCl 10 mg 04/03/17 12:59 04/03/17 13:23 Oxycontin PO 10 mg BID PRN Administration PAIN Polyethylene Glycol 17 gm 04/03/17 09:00 04/03/17 08:11 Miralax PO Not Given DAILY ASHLY Saccharomyces Boulardii 250 mg 03/31/17 16:00 04/03/17 08:00 Florastor PO 250 mg BIDWM ASHLY Administration Sodium Chloride 10 ml 03/30/17 22:00 04/02/17 21:42 Normal Saline Flush 0.9% IVP 10 ml Q8HR ASHLY Administration Sodium Chloride 10 ml 03/30/17 21:42 04/03/17 09:53 Normal Saline Flush 0.9% IVP 10 ml PRN PRN Administration NEEDED PER PROVIDER ORDERS - Lab Result Fish Bone Diagrams: 04/02/17 05:16 04/02/17 05:16 - Additional Planning My Orders: My Active Orders 04/03/17 Consult [Palliative Care Consult] [CONS] Routine 04/03/17 09:00 Oxygen Desat. Study w/Exercise [RC] .ONCE Docusate Sodium 250Mg Capsule [Colace 250Mg Capsule] 250 - 500 mg PO DAILY Polyethylene Glycol 3350 [Miralax] 17 gm PO DAILY fentaNYL 25 MCG PATCH [Duragesic] 1 patch TOP Q3D 04/03/17 10:00 Ferrous Sulfate [Feosol] 325 mg PO BIDWM 04/03/17 12:59 oxyCODONE ER [OxyCONTIN] 10 mg PO BID PRN 04/04/17 05:00 FERRITIN [IAI] Routine 04/04/17 09:00 Chest 1 View X-Ray [XR] DAILY Subjective - Subjective Patient Reports: Resting Comfortably, Other (Pain from spinal stenosis is not controlled today, despite Fentanyl patch restarted.) Nursing Reports: Shortness of Breath, Other (Resp rate has incresed at rest) Objective Vital Signs: Vital Signs - 24 hr 04/02/17 04/02/17 04/02/17 15:35 23:00 23:30 Temperature 36.9 C 36.8 C Heart Rate 70 Heart Rate [ 71 70 Brachial] Respiratory 20 18 18 Rate Blood Pressure 158/67 H 149/73 H [Right Brachial artery] O2 Saturation 94 95 04/03/17 04/03/17 05:27 07:35 Temperature 36.3 C L 36.5 C Heart Rate Heart Rate [ 64 81 Brachial] Respiratory 18 20 Rate Blood Pressure 144/64 H 142/54 H [Right Brachial artery] O2 Saturation 94 92 Oxygen O2 Source Oxymizer I&O (Last 24 Hrs): Intake and Output Totals x24h 04/01/17 04/02/17 04/03/17 23:59 23:59 23:59 Intake Total 2270 2204.5 1650 Output Total 1269 1950 600 Balance 1001 254.5 1050 General: Alert HEENT: Mucous membr. moist/pink Neck: Supple Cardiovascular: Regular rate Respiratory: Other (Diminished BS without rales or wheezing) Extremities: No edema - Results Results: Laboratory Results WBC 7.6 x10^3/uL (4.8-10.8) 04/02/17 05:16 RBC 3.06 10^6/uL (4.70-6.10) L 04/02/17 05:16 Hgb 9.2 g/dL (14.0-18.0) L 04/02/17 05:16 Hct 28.5 % (42.0-52.0) L 04/02/17 05:16 MCV 93.2 fL (80.0-94.0) 04/02/17 05:16 MCH 30.2 pg (27.0-31.0) 04/02/17 05:16 MCHC 32.4 g/dL (32.0-36.0) 04/02/17 05:16 RDW 15.4 % (12.0-15.0) H 04/02/17 05:16 Plt Count 149 10^3/uL (130-450) 04/02/17 05:16 MPV 7.6 fL (7.4-11.4) 04/02/17 05:16 Neut # 6.6 10^3/uL (1.5-6.6) 04/02/17 05:16 Lymph # 0.4 10^3/uL (1.5-3.5) L 04/02/17 05:16 [place] # 0.4 10^3/uL (0.0-1.0) 04/02/17 05:16 Eos # 0.1 10^3/uL (0.0-0.7) 04/02/17 05:16 Baso # 0.0 10^3/uL (0.0-0.1) 04/02/17 05:16 Absolute Nucleated RBC 0.02 x10^3/uL 04/02/17 05:16 Nucleated RBC % 0.2 /100WBC 04/02/17 05:16 Manual Slide Review Indicated 03/30/17 20:48 Platelet Estimate NORMAL (130-450,000) (NORMAL) 03/30/17 20:48 Platelet Morphology NORMAL APPEARANCE (NORMAL) 03/30/17 20:48 RBC Morph Micro Appear 1+ HYPOCHROMASIA (NORMAL) 03/30/17 20:48 Bld Gas Analysis Time 1006 03/31/17 09:55 Sample Site RIGHT RADIAL 03/31/17 09:55 ABG pH 7.34 (7.35-7.45) L 03/31/17 09:55 ABG pCO2 55 mmHg (34-45) H 03/31/17 09:55 ABG pO2 47 mmHg (80-100) L* 03/31/17 09:55 ABG HCO3 29.1 mmol/L (22.0-26.0) H 03/31/17 09:55 ABG Total CO2 30.8 MMOL/L (21.0-29.0) H 03/31/17 09:55 ABG O2 Saturation 83 % (94-98) L* 03/31/17 09:55 ABG Base Excess 2.5 mmol/L (-2.0-3.0) 03/31/17 09:55 James Test POSITIVE 03/31/17 09:55 O2 Delivery Device NASAL CANNULA 03/31/17 09:55 FiO2 100.00 03/31/17 01:57 EPAP 5 cmH2O 03/31/17 01:57 IPAP 12 cmH2O 03/31/17 01:57 Sodium 141 mmol/L (135-145) 04/02/17 05:16 Potassium 3.4 mmol/L (3.5-5.0) L 04/02/17 05:16 Chloride 105 mmol/L (101-111) 04/02/17 05:16 Carbon Dioxide 29 mmol/L (21-32) 04/02/17 05:16 Anion Gap 7.0 (6-13) 04/02/17 05:16 BUN 63 mg/dL (6-20) H 04/02/17 05:16 Creatinine 1.6 mg/dL (0.6-1.2) H 04/02/17 05:16 Estimated GFR (MDRD) 41 (>89) L 04/02/17 05:16 Glucose 118 mg/dL (70-100) H 04/02/17 05:16 Glycated Hemoglobin 6.8 % (4.6-6.2) H 03/31/17 04:38 Estim Average Glucose 148 (70-100) H 03/31/17 04:38 Calcium 8.6 mg/dL (8.5-10.3) 04/02/17 05:16 Magnesium 2.0 mg/dL (1.7-2.8) 04/02/17 05:16 Iron 37 ug/dL (45-182) L 04/03/17 06:00 TIBC 186 ug/dL (250-450) L 04/03/17 06:00 % Saturation 20 % (20-50) 04/03/17 06:00 Transferrin 133 mg/dL (180-329) L 04/03/17 06:00 Total Bilirubin 0.7 mg/dL (0.2-1.0) 03/30/17 20:48 AST 15 IU/L (10-42) 03/30/17 20:48 ALT < 10 IU/L (10-60) L 03/30/17 20:48 Alkaline Phosphatase 60 IU/L (42-121) 03/30/17 20:48 Total Protein 7.7 g/dL (6.7-8.2) 03/30/17 20:48 Albumin 3.3 g/dL (3.2-5.5) 03/30/17 20:48 Globulin 4.4 g/dL (2.1-4.2) H 03/30/17 20:48 Albumin/Globulin Ratio 0.8 (1.0-2.2) L 03/30/17 20:48 Lipase 22 U/L (22-51) 03/30/17 20:48 Last Dose Date 04/01/17 04/01/17 21:25 Last Dose Time 01:00 04/01/17 21:25 Vancomycin Trough 11.4 ug/mL (5.0-15.0) 04/01/17 21:25 - Procedures Procedures: Procedures ASSISTANCE WITH RESPIRATORY VENTILATION, 24-96 HRS, CPAP (03/23/15) DRAINAGE OF RIGHT KNEE JOINT, PERCUTANEOUS APPROACH, DIAGN (02/15/17) INTRODUCTION OF ANTI-INFLAMMATORY INTO JOINTS, PERC APPROACH (02/15/17)
[2017-04-03] MEDS: SODIUM CHLORIDE FLUSH 0.9% 10 ML SYRINGE IVP SCH ×2 (15:04→21:02)
[2017-04-03] MEDS ORDERED: VANCOMYCIN 1.5 GM/NS 500 ML 1.5 GM/500 ML BAG IV SCH (16:00)
[2017-04-03] MEDS: oxyCODONE 5 MG TABLET PO PRN (21:31)
[2017-04-03] MEDS: INSULIN GLARGINE 300 UNIT/3 ML PEN SUBQ SCH (21:33)
[2017-04-03] MEDS: levoFLOXacin 750 MG/150 ML 750 MG/150 ML BAG IV SCH (22:36)
[2017-04-04] MEDS: oxyCODONE 5 MG TABLET PO PRN ×2 (00:18→06:02)
[2017-04-04] MEDS: SODIUM CHLORIDE FLUSH 0.9% 10 ML SYRINGE IVP PRN ×2 (00:18→02:48)
[2017-04-04] MEDS: AZTREONAM 2 GM in SODIUM CHLORIDE 0.9% MINIBAG 100 ML IV SCH ×2 (02:48→09:54)
[2017-04-04] MEDS: FUROSEMIDE 20 MG/2 ML VIAL IVP SCH (06:03)
[2017-04-04] MEDS: SODIUM CHLORIDE FLUSH 0.9% 10 ML SYRINGE IVP SCH ×2 (06:03→09:55)
--- NOTE | 2017-04-04 06:51 | XRAY Report ---
EXAM: CHEST RADIOGRAPHY EXAM DATE: 04/04/2017 06:24 AM. CLINICAL HISTORY: F/U pneumonia. COMPARISON: 04/02/2017. TECHNIQUE: 1 view. FINDINGS: Lungs/Pleura: Moderate bilateral airspace opacities with probable small effusions appear stable. No g ross pneumothorax. Mediastinum: Stable with probable underlying cardiomegaly. Other: None. IMPRESSION: Moderate bilateral airspace opacities with probable small effusions appear grossly stable . [facility] Referring Provider Line: [phone] SITE ID: [id number]
[2017-04-04 07:48] VITALS: BP 156/78
[2017-04-04] MEDS: INSULIN ASPART 300 UNIT/3 ML PEN SUBQ SCH (08:26)
[2017-04-04 09:43] LABS: BASOPHILS % (AUTO) 0.5 %; EOSINOPHILS # (AUTO) 0.3 10^3/uL (0.0-0.7); EOSINOPHILS % (AUTO) 3.4 %; HGB - HEMOGLOBIN 10.9 g/dL (14.0-18.0); LYMPHOCYTES # (AUTO) 0.5 10^3/uL (1.5-3.5); LYMPHOCYTES % (AUTO) 6.3 %; MEAN CORPUSCULAR HEMOGLOBIN 30.3 pg (27.0-31.0); MEAN CORPUSCULAR HGB CONC 32.6 g/dL (32.0-36.0); MEAN CORPUSCULAR VOLUME 92.9 fL (80.0-94.0); MEAN PLATELET VOLUME 7.6 fL (7.4-11.4); MONOCYTES # (AUTO) 0.6 10^3/uL (0.0-1.0); MONOCYTES % (AUTO) 7.1 %; NEUTROPHILS % (AUTO) 82.7 %; PLT - PLATELET COUNT 197 10^3/uL (130-450); RED CELL DISTRIBUTION WIDTH 15.9 % (12.0-15.0); WHITE BLOOD COUNT 8.4 x10^3/uL (4.8-10.8)
[2017-04-04 09:51] LABS: ALBUMIN 2.5 g/dL (3.2-5.5); ALBUMIN/GLOBULIN RATIO 0.6 (1.0-2.2); ALKALINE PHOSPHATASE 58 IU/L (42-121); ALT ALANINE AMINOTRANSFERASE < 10 IU/L (10-60); AST ASPARTATE AMINOTRANSFERASE 13 IU/L (10-42); BILIRUBIN,TOTAL 0.5 mg/dL (0.2-1.0); BUN - BLOOD UREA NITROGEN 48 mg/dL (6-20); CALCIUM 8.8 mg/dL (8.5-10.3); CARBON DIOXIDE - CO2 30 mmol/L (21-32); CHLORIDE 104 mmol/L (101-111); CREATININE 1.3 mg/dL (0.6-1.2); GFR - MDRD 52 (>89); GLUCOSE 186 mg/dL (70-100); MAGNESIUM 1.9 mg/dL (1.7-2.8); PHOSPHORUS 2.6 mg/dL (2.5-4.6); SODIUM 142 mmol/L (135-145); TOTAL PROTEIN 6.9 g/dL (6.7-8.2)
[2017-04-04] MEDS: FERROUS SULFATE 325 MG TABLET PO SCH (09:54)
[2017-04-04] MEDS: SACCHAROMYCES BOULARDII 250 MG CAPSULE PO SCH (09:54)
[2017-04-04] MEDS: POLYETHYLENE GLYCOL 3350 17 GM PACKET PO SCH (09:58)
[2017-04-04] MEDS: DOCUSATE SODIUM 250 MG CAPSULE PO SCH (09:58)
[2017-04-04] MEDS: ALBUTEROL NEB 2.5 MG/3 ML INH PRN (10:17)
--- NOTE | 2017-04-04 12:56 | Discharge Plan ---
Discharge Plan Disposition: Home, Self Care Condition: Stable Prescriptions: fentaNYL 12 MCG PATCH [Duragesic 12mcg patch] 25 mcg TOP Q3D #2 patch Ferrous Sulfate 325 mg PO BID #60 tablet Sulfamethox/Trimeth 800/160 [Bactrim Ds 800/160] 1 each PO BID #14 tablet Diet: Diabetic (Dysphagia Soft diet) Activity Restrictions: Activity as Tolerated Shower Restrictions: No Driving Restrictions: No Assistance Devices: Walker Weight Bearing: Full Weight Additional Instructions or Follow Up instructions: See your PCP in 1-2 weeks for Follow up Resume all of your medications as taken before this hospitalization Take the antibiotic tablets til done Start Iron supplement orally daily Home Health has been ordered for you. Participate in PT and OT please. Follow-Up Care: Home Health - RN, Home Health - PT No Smoking: If you smoke, Please STOP! Call for help. Follow-up with: JOSI CARTER MD [Primary Care Provider] -
--- NOTE | 2017-04-04 19:23 | DISCHARGE SUMMARY ---
Discharge Summary Admit Date: 04/30/17 Discharge Date: 04/04/17 Discharging Provider: Wan Perez MD Primary Care Provider: Poli Ramires MD Code Status: Do Not Attempt Resuscitation Condition at Discharge: Stable Discharge Disposition: 01 Home, Self Care - DIAGNOSES Admission Diagnoses: 1. Acute respiratory failure with hypoxia 2. Pneumonia 3. Pulmonary hypertension 4. Type 2 diabetes mellitus 5. Hypertension 6. Chronic constipation 7. Chronic pain 8. DO NOT RESUSCITATE/DO NOT INTUBATE status 9. DVT prophylaxis Discharge Diagnoses with Status of Each Condition: 1. Acute respiratory failure with hypoxia and hypercapnia: Resolved 2. Healthcare associated pneumonia: Improving 3. CHF exacerbation: Improving 4. Diabetes: Stable 5. Hypertension: Stable 6. Chronic pain: Stable - HPI History of Present Illness: Patient was recently admitted for pneumonia 02/18/17. After hospitalization he went to [facility] for rehab because of functional decline and spinal stenosis he had come back home about 2 weeks ago and prior to admission suddenly developed respiratory distress and became unresponsive. On presentation to the emergency room the patient was found to be in respiratory failure and chest x-ray revealed diffuse alveolar infiltrates. The patient's ABG showed respiratory acidosis with a PCO2 of 75. Patient had recently had his fentanyl dose increased. Patient was admitted for respiratory failure with hypoxia and hypercapnia. The patient's respiratory failure was likely multifactorial secondary to a new pneumonia, as well as pulmonary vascular congestion and increased pulmonary edema from CHF and likely respiratory depression from fentanyl. Patient was initially placed on BiPAP - HOSPITAL COURSE Hospital Course: The patient was initially placed on BiPAP with which she had significant improvement in his PCO2 which improved to 55 the patient was more alert and awake near his baseline mental status. Initially the patient was still requiring 6 L of oxygen but required no further BiPAP. Patient was treated with IV antibiotics Levaquin, vancomycin and aztreonam secondary to penicillin allergy. Patient was also given IV Lasix. The patient had a significant improvement over the next several days he was weaned down to just 2 L of oxygen. The patient's sputum culture grew staph aureus which was sensitive to Bactrim. The patient was discharged home with Bactrim and placed on Lasix 80 mg in the morning. The patient was placed back on a 25 mcg fentanyl patch and oxycodone for his chronic pain control. The patient was also found to have iron deficiency and was placed on ferrous sulfate twice a day. The patient did have a swallow evaluation in the hospital and was recommended to have a modified barium swallow once returning home as an outpatient. The patient was discharged home with his son who will help to take care of him and the patient was referred for home health PT as well as nursing. The patient was seen by respiratory therapy and did qualify for home oxygen. Patient already on home oxygen with [facility]. New home to prescription: Patient remains hypoxic at rest, with room air O2 sat of 87%. At rest with O2 at 2 L/min via nasal cannula, his sats improved to 93%. With exertion on 2 L/ min his sats were 88%, at 3 L/min his sats were 88% and finally at 4 L/min with exertion his sats improved to 93%. The patient does have large amounts of expectorated phlegm, and I feel a home suction unit will help clear his oral secretions. I am ordering home O2 at 2 L/min via nasal cannula at rest, and 4 L/min with exertion and also ordering a home suction unit for oral secretion. - ALLERGIES Allergies/Adverse Reactions: Allergies Allergy/AdvReac Type Severity Reaction Status Date / Time Penicillins Allergy Mild Rash Verified 03/30/17 20:30 morphine AdvReac Hallucinati Verified 03/30/17 23:36 ons - MEDICATIONS Home Medications: Ambulatory Orders Medication Instructions Recorded Confirmed Carvedilol 25 mg PO BID 01/23/13 03/30/17 Docusate Sodium 100Mg Capsule 100 mg PO BID 03/20/13 03/30/17 [Colace 100Mg Capsule] Insulin Glargine,Hum.rec.anlog 10 units SUBQ QDBREAKFAST 05/30/13 03/30/17 [Lantus] Acetaminophen [Tylenol] 650 mg PO Q4HR PRN tablet 02/19/17 03/30/17 Amitriptyline [Elavil] 10 mg PO 2100 #0 02/19/17 03/30/17 Ferrous Gluconate 324 mg PO DAILY #0 02/19/17 03/30/17 Folic Acid 1 mg PO DAILY #0 02/19/17 03/30/17 Furosemide 80 mg PO DAILY #0 02/19/17 03/30/17 Lidocaine Patch 5% [Lidoderm Patch] 1 patch TOP DAILY PRN #14 patch 02/19/17 Pantoprazole [Protonix] 40 mg PO BID #30 tablet 02/19/17 03/30/17 Polyethylene Glycol 3350 [Miralax] 17 gm PO DAILY packet 02/19/17 03/30/17 Prazosin [Minipress] 5 mg PO BID #0 02/19/17 03/30/17 Senna [Senokot] 17.2 mg PO BID #0 02/19/17 03/30/17 Simvastatin 20 mg PO HS #0 02/19/17 03/30/17 Tamsulosin [Flomax] 0.4 mg PO BID 02/20/17 03/30/17 hydrALAZINE [Apresoline] 50 mg PO BID 02/20/17 03/30/17 oxyCODONE [Roxicodone] 5 - 10 mg PO Q6HR PRN 02/20/17 03/30/17 Ferrous Sulfate 325 mg PO BID #60 tablet 04/03/17 Sulfamethox/Trimeth 800/160 1 each PO BID #14 tablet 04/03/17 [Bactrim Ds 800/160] fentaNYL 12 MCG PATCH [Duragesic 25 mcg TOP Q3D #2 patch 04/03/17 12mcg patch] - PHYSICAL EXAM AT DISCHARGE General Appearance: positive: No acute distress, Alert Eyes Bilateral: positive: Normal inspection, PERRL, EOMI, No lid inflammation, Conjunctivae nml, No scleral icterus ENT: positive: ENT inspection nml, Pharynx nml, No signs of dehydration. negative: Purulent nasal drainage, Pharyngeal erythema, Oral lesions Neck: positive: Nml inspection, Thyroid nml, No JVD, Trachea midline. negative : Lymphadenopathy (R), Lymphadenopathy (L) Respiratory: positive: Chest non-tender, Rales (bases), Rhonchi (improved) Cardiovascular: positive: Regular rate & rhythm, No murmur, No gallop Peripheral Pulses: positive: 2+ Abdomen: positive: Non-tender, No organomegaly, Nml bowel sounds. negative: Guarding, Rebound, Hepatomegaly Back: positive: Nml inspection. negative: CVA tenderness (R), CVA tenderness (L ) Skin: positive: Color nml, No rash, Warm Extremities: positive: Non-tender, Full ROM, Nml appearance, Pedal edema Neurologic/Psychiatric: positive: Oriented x3, CN's nml (2-12), Motor nml, Sensation nml - LABS Result Diagrams: 04/04/17 09:05 04/04/17 09:05 Other Lab Results: Laboratory Results WBC 8.4 x10^3/uL (4.8-10.8) 04/04/17 09:05 RBC 3.60 10^6/uL (4.70-6.10) L 04/04/17 09:05 Hgb 10.9 g/dL (14.0-18.0) L 04/04/17 09:05 Hct 33.5 % (42.0-52.0) L 04/04/17 09:05 MCV 92.9 fL (80.0-94.0) 04/04/17 09:05 MCH 30.3 pg (27.0-31.0) 04/04/17 09:05 MCHC 32.6 g/dL (32.0-36.0) 04/04/17 09:05 RDW 15.9 % (12.0-15.0) H 04/04/17 09:05 Plt Count 197 10^3/uL (130-450) 04/04/17 09:05 MPV 7.6 fL (7.4-11.4) 04/04/17 09:05 Neut # 7.0 10^3/uL (1.5-6.6) H 04/04/17 09:05 Lymph # 0.5 10^3/uL (1.5-3.5) L 04/04/17 09:05 [place] # 0.6 10^3/uL (0.0-1.0) 04/04/17 09:05 Eos # 0.3 10^3/uL (0.0-0.7) 04/04/17 09:05 Baso # 0.0 10^3/uL (0.0-0.1) 04/04/17 09:05 Absolute Nucleated RBC 0.00 x10^3/uL 04/04/17 09:05 Nucleated RBC % 0.0 /100WBC 04/04/17 09:05 Manual Slide Review Indicated 03/30/17 20:48 Platelet Estimate NORMAL (130-450,000) (NORMAL) 03/30/17 20:48 Platelet Morphology NORMAL APPEARANCE (NORMAL) 03/30/17 20:48 RBC Morph Micro Appear 1+ HYPOCHROMASIA (NORMAL) 03/30/17 20:48 Bld Gas Analysis Time 1006 03/31/17 09:55 Sample Site RIGHT RADIAL 03/31/17 09:55 ABG pH 7.34 (7.35-7.45) L 03/31/17 09:55 ABG pCO2 55 mmHg (34-45) H 03/31/17 09:55 ABG pO2 47 mmHg (80-100) L* 03/31/17 09:55 ABG HCO3 29.1 mmol/L (22.0-26.0) H 03/31/17 09:55 ABG Total CO2 30.8 MMOL/L (21.0-29.0) H 03/31/17 09:55 ABG O2 Saturation 83 % (94-98) L* 03/31/17 09:55 ABG Base Excess 2.5 mmol/L (-2.0-3.0) 03/31/17 09:55 James Test POSITIVE 03/31/17 09:55 O2 Delivery Device NASAL CANNULA 03/31/17 09:55 FiO2 100.00 03/31/17 01:57 EPAP 5 cmH2O 03/31/17 01:57 IPAP 12 cmH2O 03/31/17 01:57 Sodium 142 mmol/L (135-145) 04/04/17 09:05 Potassium 3.6 mmol/L (3.5-5.0) 04/04/17 09:05 Chloride 104 mmol/L (101-111) 04/04/17 09:05 Carbon Dioxide 30 mmol/L (21-32) 04/04/17 09:05 Anion Gap 8.0 (6-13) 04/04/17 09:05 BUN 48 mg/dL (6-20) H 04/04/17 09:05 Creatinine 1.3 mg/dL (0.6-1.2) H 04/04/17 09:05 Estimated GFR (MDRD) 52 (>89) L 04/04/17 09:05 Glucose 186 mg/dL (70-100) H 04/04/17 09:05 POC Whole Bld Glucose 143 mg/dL (70 - 100) H 04/04/17 11:48 Glycated Hemoglobin 6.8 % (4.6-6.2) H 03/31/17 04:38 Estim Average Glucose 148 (70-100) H 03/31/17 04:38 Calcium 8.8 mg/dL (8.5-10.3) 04/04/17 09:05 Ionized Calcium NO 04/04/17 09:05 Phosphorus 2.6 mg/dL (2.5-4.6) 04/04/17 09:05 Magnesium 1.9 mg/dL (1.7-2.8) 04/04/17 09:05 Iron 37 ug/dL (45-182) L 04/03/17 06:00 TIBC 186 ug/dL (250-450) L 04/03/17 06:00 % Saturation 20 % (20-50) 04/03/17 06:00 Transferrin 133 mg/dL (180-329) L 04/03/17 06:00 Ferritin 135.5 ng/mL (23.9-336.2) 04/04/17 05:10 Total Bilirubin 0.5 mg/dL (0.2-1.0) 04/04/17 09:05 AST 13 IU/L (10-42) 04/04/17 09:05 ALT < 10 IU/L (10-60) L 04/04/17 09:05 Alkaline Phosphatase 58 IU/L (42-121) 04/04/17 09:05 Total Protein 6.9 g/dL (6.7-8.2) 04/04/17 09:05 Albumin 2.5 g/dL (3.2-5.5) L 04/04/17 09:05 Globulin 4.4 g/dL (2.1-4.2) H 04/04/17 09:05 Albumin/Globulin Ratio 0.6 (1.0-2.2) L 04/04/17 09:05 Lipase 22 U/L (22-51) 03/30/17 20:48 Last Dose Date 04/01/17 04/01/17 21:25 Last Dose Time 01:00 04/01/17 21:25 Vancomycin Trough 11.4 ug/mL (5.0-15.0) 04/01/17 21:25 - DIAGNOSTIC IMAGING Diagnostic Imaging Results: Final report reviewed Diagnostic Imaging Results Comments: Chest x-ray Impression: 1. Mild cardiac enlargement 2. Diffuse interstitial and alveolar opacities throughout both lungs suspicious for edema or infiltrates. Small effusions. No pneumothorax. Chest x-ray Impression: Migrating pulmonary opacities in the right hemothorax may reflect evolving pneumonia or pulmonary edema Chest x-ray Impression Moderate bilateral airspace opacities with possible small effusions appear grossly stable. - FOLLOW UP Follow Up: Patient will be discharged home with his son and home health PT and RN. Patient is to receive Bactrim to complete treatment for staph aureus pneumonia. Patient was also placed on 80 mg of Lasix daily. He was continued on his home medications. Patient was prescribed oxygen 2 L at rest and 4 L with exertion. He was also given a home suction apparatus. The patient will follow up with his primary care physician once he is completed treatment for his pneumonia to ensure that he is improved. - TIME SPENT Time Spent in Discharge (Minutes): 40 (FAX TO PCP)
--- NOTE | 2017-04-16 17:11 | HISTORY & PHYSICAL EXAMINATION ---
DATE OF SERVICE: 03/30/2017 Physician: Yessenia Nolen MD ADDENDUM TO H&P, ADMISSION 03/30/2018 I am attesting that this patient will be admitted to the hospital for less than 96 hours. At 96 hours, he will be evaluated for discharge and/or transfer. TD: 04/16/2017 13:44
== END 2017-04-04 13:40 | disposition home health service (06) | DRG 189 ==
LOC: EDUNIT# → ED 20:22 → ICU 22:04 → MS2 04-01 18:42
PROVIDERS: ADMIT Specialist; ATTEND Internal Medicine
DX: J96.91 Respiratory failure, unspecified with hypoxia (principal); J44.9 Chronic obstructive pulmonary disease, unspecified; I11.0 Hypertensive heart disease with heart failure; I50.9 Heart failure, unspecified; I48.91 Unspecified atrial fibrillation; E11.9 Type 2 diabetes mellitus without complications; J96.01 Acute respiratory failure with hypoxia; J15.212 Pneumonia due to Methicillin resistant Staphylococcus aureus; I50.33 Acute on chronic diastolic (congestive) heart failure; E87.2 Acidosis; J44.0 Chronic obstructive pulmonary disease with (acute) lower respiratory infection; I13.0 Hypertensive heart and chronic kidney disease with heart failure and stage 1 through stage 4 chronic kidney disease, or unspecified chronic kidney disease; I27.29 Other secondary pulmonary hypertension; J96.02 Acute respiratory failure with hypercapnia; Y95 Nosocomial condition; I95.9 Hypotension, unspecified; E11.65 Type 2 diabetes mellitus with hyperglycemia; E11.22 Type 2 diabetes mellitus with diabetic chronic kidney disease; N18.3 Chronic kidney disease, stage 3 (moderate); G89.29 Other chronic pain; M48.00 Spinal stenosis, site unspecified; K59.09 Other constipation; F41.9 Anxiety disorder, unspecified; F43.21 Adjustment disorder with depressed mood; K21.9 Gastro-esophageal reflux disease without esophagitis; D50.9 Iron deficiency anemia, unspecified; D63.8 Anemia in other chronic diseases classified elsewhere; I71.2 Thoracic aortic aneurysm, without rupture; Z66 Do not resuscitate; N40.1 Benign prostatic hyperplasia with lower urinary tract symptoms; R35.0 Frequency of micturition; R39.15 Urgency of urination; R39.12 Poor urinary stream; E66.9 Obesity, unspecified; E11.51 Type 2 diabetes mellitus with diabetic peripheral angiopathy without gangrene; T40.4X5A Adverse effect of other synthetic narcotics, initial encounter; Y92.009 Unspecified place in unspecified non-institutional (private) residence as the place of occurrence of the external cause; L89.92 Pressure ulcer of unspecified site, stage 2; Z88.0 Allergy status to penicillin; Z79.4 Long term (current) use of insulin; Z68.26 Body mass index [BMI] 26.0-26.9, adult; Z99.3 Dependence on wheelchair; Z79.891 Long term (current) use of opiate analgesic
CPT/HCPCS: 36415; 36600; 71010; 71045; 80048; 80053; 82728; 82803; 83036; 83540; 83690; 83735; 84100; 84466; 85025; 87040; 87070; 87150; 87205; 93306; 94640; 94660; 94761; 96365; 96367; 96375; 99283; 99284

== ENCOUNTER 2017-04-10 15:30 | Outpatient (CLI) | payer MEDICARE ==
--- NOTE | 2017-04-10 20:25 | CONSULTATION NOTE ---
Palliative Care Follow Up - Referral Referring Provider: Dr. Tito Ramires Time of Visit: [id number] Referral setting: Home Referral Reason: Pneumonia/Pulmonary Hypertension/Diastolic Heart Failure - Information Sources Records reviewed: RN notes reviewed, Previous records reviewed History/Review of Systems obtained from: Patient, Family (Axel son and DPOA present, Sepideh DEMPSEY) Exam limitations: No limitations - History of Present Illness Update Brief HPI Update: This is an 86-year-old gentleman with multiple comorbidities and has had ongoing functional and cognitive decline over the last few months. He was hospitalized and January 2017 for pneumonia, with worsening of his diastolic congestive heart failure and a right knee effusion. At that point in time he was transitioned to [facility] facility, to participate in a rehab program , as he was not able to return home until he was able to be somewhat more functional and attend to his ADLs. He had a somewhat prolonged recovery, he does have a long list of comorbidities including diabetes type 2, COPD, spinal stenosis and chronic back pain. Chronic kidney disease stage III, hypertension , gastroesophageal reflux disease, recurrent esophageal stenosis with resulting dysphasia, osteoarthritis of multiple joints, benign prostate hypertrophy, his history of chronic constipation, history of ascending aortic aneurysm, history of anemia. He had been doing somewhat better, when discharged home, with the goal of having home health therapies to further improve functional status and independence. Unfortunately he was having escalating pain, he had been put on fentanyl 25 mcg patch at the [facility] with a much improved pain control, but was having escalating use of oxycodone and uncontrolled pain and I was contacted by his daughter regarding this 03/20 and increased patch to Fentanyl 37.5. Patient was due to be seen by palliative care for further goals of care conversation. Unfortunately patient presented over several hours with acute decline on 03/30/2007 13 and was admitted to the hospital with acute respiratory failure with hypoxia, thought to be multifactorial with new pneumonia, pulmonary edema from CHF, and concern for respiratory depression from fentanyl. Patient did have an echo during this hospitalization on 04/02 and was found to have an ejection fraction of 60% but the left atrium was severely W dilated. The other concerning finding was a severe pulmonary hypertension, ongoing mild mitral and aortic regurgitation, and confirmation of the ascending aortic aneurysm that is thought to measure as much as 5.2 cm. During his hospitalization he had several conversations with different providers and is of the understanding that he is in a precarious situation, and his heart and lungs are getting worse, and there is concerned about him returning back to a previous level of functioning. Of note, patient previously has been very resistant to any conversations around end-of-life, this is been very difficult on his family given the severity of his illness and fragility of his situation. I have been having ongoing conversations with both the son and syumllis-ej-exn over the last several weeks , regarding goals of care for his dad, do recognize that it needs to be the patient that sets the agenda, but patient has done very poorly since discharge. Son reports patient woke up this morning, talking about "this is no life, want to go be with mother". Wanted to update his will, and son introduce the concept of hospice. Patient is quite weak, has mostly recliner bound with max lift assist to bathroom. He does have shortness of breath at rest, he has crackles in the right lower lobe. His respiratory rates about 24 with an O's 2 sat of 90% on 2 L. He denies symptoms of persistent and pervasive depression, he reports his pain is well controlled, but does see himself as getting worse and wanted to focus on comfort. Social History - Living Situation Living arrangement: At home Living Situation: With family (Son Rodrigo is retired, they have moved in with his father after the of his mother. They have remodeled the home to accommodate both families. Ridgxjrw-md-zey Sepideh is a nurse at the [employer] [facility] [place], she has been helping them navigate the system.) Medications/Allergies - Medications Home Medications: Ambulatory Orders Medication Instructions Recorded Confirmed Carvedilol 25 mg PO BID 01/23/13 04/10/17 Insulin Glargine,Hum.rec.anlog 5 units SUBQ QDBREAKFAST 05/30/13 04/10/17 [Lantus] Acetaminophen [Tylenol] 650 mg PO Q4HR PRN tablet 02/19/17 04/10/17 Amitriptyline [Elavil] 10 mg PO 2100 #0 02/19/17 04/10/17 Furosemide 80 mg PO DAILY #0 02/19/17 04/10/17 Prazosin [Minipress] 5 mg PO BID #0 02/19/17 04/10/17 Tamsulosin [Flomax] 0.4 mg PO BID 02/20/17 04/10/17 hydrALAZINE [Apresoline] 50 mg PO BID 02/20/17 04/10/17 oxyCODONE [Roxicodone] 5 - 10 mg PO Q6HR PRN 02/20/17 04/10/17 Sulfamethox/Trimeth 800/160 1 each PO BID #14 tablet 04/03/17 [Bactrim Ds 800/160] fentaNYL 12 MCG PATCH [Duragesic 25 mcg TOP Q3D #2 patch 04/03/17 04/10/17 12mcg patch] Polyethylene Glycol 3350 [Miralax] 17 gm PO DAILY PRN 04/10/17 04/10/17 Saccharomyces Boulardii [Florastor] 250 mg PO BID 04/10/17 04/10/17 Senna [Senokot] 17.2 mg PO BID PRN 04/10/17 04/10/17 - Allergies Allergies/Adverse Reactions: Allergies Allergy/AdvReac Type Severity Reaction Status Date / Time Penicillins Allergy Mild Rash Verified 03/30/17 20:30 morphine AdvReac Hallucinati Verified 03/30/17 23:36 ons Review of Systems - Constitutional Constitutional: reports: Fatigue, Malaise, Weakness, Other (decreased intake) - Eyes Eyes: reports: Vision loss, Corrective lenses - Ears, Nose & Throat Ears, Nose & Throat: reports: Hearing loss, Other (Using oral suction, does have trouble with secretions both related to esophageal stenosis as well as weakness. Phlegm is clear in nature.) - Cardiovascular Cardiovascular: reports: Exertional dyspnea, Decr. exercise tolerance, Orthopnea. denies: Chest pain - Respiratory Respiratory: reports: Cough (improving), Sputum production (clear phelgm), Orthopnea, SOB at rest, SOB with exertion - Gastrointestinal Gastrointestinal: reports: Abdominal distention, Diarrhea (attributed to antibiotic; intermediate constipation), Reflux/heartburn, Early satiety - Genitourinary Genitourinary: reports: Urgency (using urinal at bedside) - Musculoskeletal Musculoskeletal: reports: Back pain, Stiffness, Limited range of motion, Muscle weakness, Assistive devices (walker), Transfer issues (has been mostly wheelchair/recliner bound since home; not sleeping in bed secondary to orthopnea ) - Integumentary Integumentary: reports: Dryness - Neurological Neurological: reports: General weakness, Memory problems (mild) - Psychiatric Psychiatric: reports: Depression (Presents with sadness expressions of grief and loss. Patient denies depression though family reports patient is much more isolated and withdrawn over the last few weeks) - Endocrine Endocrine: reports: Diabetes type 2 (Blood sugars have actually been running fairly low a.m. around 100 103.) - Hematologic/Lymphatic Hematologic/Lymphatic: reports: Anemia (hct 33.5 started on iron/folic acid), Recurrent infections (pneumonia two times in last 2 months) - All Other Systems All Other Systems: reports: Reviewed and negative Physical Exam - Vital Signs Temperature: 98.9 C Pulse Rate: 60 Respiratory Rate: 22 (increase 26 with conversation) O2 Saturation: 91 (2 liters at rest) Blood Pressure: 114/72 - Physical Exam General Appearance: positive: Mild distress Eyes Bilateral: positive: Normal inspection ENT: positive: No signs of dehydration Neck: positive: No JVD, Trachea midline Cardiovascular: positive: Regular rate & rhythm Respiratory: positive: Rales (crackles in right lower lobe; diminished but clear throughout other lung huber). negative: Wheezes, Rhonchi Abdomen: positive: Non-tender, Soft, Nml bowel sounds, Obese Skin: positive: Pallor Extremities: positive: Other (examined in recliner; did not have ambulate; reported more difficult and weak and unable) Neurologic/Psychiatric: positive: Oriented x3, Weakness Palliative Care - POLST Patient has POLST: Yes POLST Status: DNR, Comfort Measures (antibiotics for comfort/symptom managment; no medical nutrition; this was completed with patient at time of visit to confirm goals; see palliative care conversation) Pain: Pain improved, Location (lower back; bilateral knee pain has not needed anything for BTP) Tiredness/Fatigue: Severe (7-10) Drowsiness/Sedation: None Nausea: None Depression: Mild (1-3) Anxiety: Mild (1-3) Dyspnea: Moderate (4-6) Anorexia: Mild (1-3) Sleep: Variable sleep pattern (likes to be "knocked" out at night; has ambien which is effective; requested to have him use half pill) Constipation: Comment (patient usually with severe constipation; had been on improved bowel program; now with loose stool related to AB) Feelings of wellbeing/Perceived Quality of Life: Poor, Worsening Performance Status: Previous to this last hospitalization patient had returned to of level of functioning that he could ambulate short distances in his home, toilet himself, but still needed maximum assist with bathing and meal prep. He has been mostly bedbound in the hospital, and since home has been sleeping and spending most of his time in his recliner. His son essentially almost carries him max assist to the bathroom, definitely could use a commode. Are waiting bathing assistance either from home health now considering hospice. Patient with new diarrhea and incontinence which is a new symptom for him.PPS of 40%. - Palliative Care Discussion: Patient's understanding of his illness, is in fact that he "is wearing out". He does understand the severity at this point in time regarding his heart and lungs and this is been complicated by his infection. He has come to some place of acceptance, he is distressed at being a burden on his family, and expresses feelings of grief and loss regarding his independence. He reports he is not afraid of dying, that he has a baldemar, and he is looking forward to be reunited with his . We both agreed that it is the space between now and end-of-life that is of most concern for him. We did discuss the role of hospice and supporting both the patient and the family in this time and space, focusing on living until we , maximizing his quality of life, and providing support for Axel and Sepideh in their care of him. Rodrigo is retired and is the primary caregiver, he has a younger daughter who has MS and it is difficult for her to travel. There is a son in [place] who is willing to spell provide respite at times, and a daughter in [place]. In conversation and support of Axel, they may need to consider hiring some nursing home care. We did review the hospice benefit, a support of the team, and the goals of care which includes focusing on comfort and no rehospitalization. This was all congruent with patient's current transition in his thinking, in the context of this we completed his KAYY ST is a previously been completed by his son Rodrigo when patient had no decision- making capacity, but this 1 is focused on comfort measures and DNA R. Axel and Sepideh are in support of this plan, he just recently seen the home health physical therapist and is not interested in pursuing a rehab approach. Results - Lab Results Lab results reviewed: Yes Impression and Recommendations - Palliative Care Impression: This is an 86-year-old gentleman with severe pulmonary hypertension, diastolic heart failure, pneumonia, and a long list of multiple comorbidities. This is the second hospitalization for the patient within the last couple months, and he presents today with significant functional decline in a PPS of 40%. He is now oxygen dependent for his pulmonary hypertension and heart failure, he does have dyspnea at rest and respiratory effort of 22-24, his expressed goals are to focus on comfort, patient presents with most likely prognosis of days to weeks. Patient and family in the context of support and patient's goals would like to transition to hospice at this time. Follow-up with primary care Dr. Ramires, in agreement and referral is to be made. Recommendations/Counseling Done: 1. Pneumonia. Currently is completing Bactrim DS, Patient presented to see large amounts of phlegm but clear in nature. He does have an oral suction that is using to manage his secretions. He also has underlying diagnosis of esophageal stenosis so concern for aspiration risk. Counseling regarding pulmonary toilet, does have inspirometer at bedside, Encouraged to use as he is breathing quite shallow sitting in the recliner. 2. Dysphagia. Patient complaining significantly about pill burden, reviewed current medication list and discontinued simvastatin, folic acid, iron, bowel meds were put on hold related to current diarrhea. 3. Diarrhea attributed to antibiotic use. Instructed to start Florastor 250 mg twice daily. Patient at high risk for recurrent constipation which is been quite problematic in the past. His his diarrhea resolves, antibiotics to be finished on Saturday, if no BM greater than 24 hours then restart MiraLAX and senna. 4. Muscle weakness most likely multifactorial in origin. Patient is recliner bound, maximum assist almost carried to bathroom. Ellen very much would like hospital bed, patient remains quite resistant. Hospice admit on Saturday, will revisit again with introduction of hospice. Patient is going to need a commode , they do have oxygen and oral suction at this point in time. 5. CHF. Patient with few fine crackles most likely attributed to his pneumonia. No lower extremity edema at this point in time. He is maximally managed on his current cardiac meds, reviewed with family for end-stage heart failure and pulmonary hypertension continue these medications for comfort, but re-evaluate on regular basis based on blood pressure and fluid status. 6. Diabetes type 2. Patient on a fairly insignificant dose of Lantus at 10 units. His blood sugars have been running on the lower side around 100 in the a.m. Will decrease to 5 units today and probable discontinue if blood sugars remain in a less than 150 range to decrease caregiver burden. 7. Advanced care planning. Family conference regarding goals of care, all in agreement patient is declining and willing to support a transition to hospice and a at home. Patient at risk for rapid deterioration given his underlying health status, but may improve or stabilize short-term as pneumonia resolves. KAYY ST was completed with patient to document his stated goals, education provided on hospice, hospice referral initiated. Time Spent: 75 minutes with greater than 50% of this done in counseling coordination of care regarding hospice referral, family conference, clarifying goals of care as well as simplifying medication list and anticipatory guidance provided
== END 2017-04-10 15:31 | disposition home or self-care (01) ==
LOC: PC 15:30
PROVIDERS: ATTEND Nurse Practitioner Adult Health
DX: Z51.5 Encounter for palliative care (principal); J18.9 Pneumonia, unspecified organism; R13.10 Dysphagia, unspecified; R19.7 Diarrhea, unspecified; M62.81 Muscle weakness (generalized); I50.9 Heart failure, unspecified; E11.22 Type 2 diabetes mellitus with diabetic chronic kidney disease; I12.9 Hypertensive chronic kidney disease with stage 1 through stage 4 chronic kidney disease, or unspecified chronic kidney disease; N18.3 Chronic kidney disease, stage 3 (moderate); J44.9 Chronic obstructive pulmonary disease, unspecified; M48.00 Spinal stenosis, site unspecified; K21.9 Gastro-esophageal reflux disease without esophagitis; K22.2 Esophageal obstruction; I50.30 Unspecified diastolic (congestive) heart failure; I27.20 Pulmonary hypertension, unspecified; I71.4 Abdominal aortic aneurysm, without rupture; Z99.81 Dependence on supplemental oxygen; Z79.4 Long term (current) use of insulin; Z79.891 Long term (current) use of opiate analgesic; R53.83 Other fatigue; R06.09 Other forms of dyspnea; F32.9 Major depressive disorder, single episode, unspecified; D64.9 Anemia, unspecified; Z87.01 Personal history of pneumonia (recurrent); Z66 Do not resuscitate
CPT/HCPCS: 99350